=== PATIENT | female | born 1935 | race Hispanic/Latino ===

== ENCOUNTER 2018-10-15 02:36 | Inpatient (IN) | payer MEDICARE ==
[2018-10-15] MEDS ORDERED: ATROVENT IH ONE (02:49)
[2018-10-15] MEDS ORDERED: PROVENTIL IH ONE (02:49)
[2018-10-15] MEDS ORDERED: NACL 0.9% 500 ML 500 ML IV ONE (02:49)
[2018-10-15] MEDS ORDERED: ZITHROMAX 500 MG in NACL 0.9% 250ML 250 ML IV ONE (02:50)
--- NOTE | 2018-10-15 02:51 | Emergency Department Report ---
ED Shortness of Breath HPI - General Chief Complaint: Dyspnea/Respdistress Stated Complaint: CRYSTAL Time Seen by Provider: 10/15/18 02:42 Source: patient, EMS (verbal report received from EMS.ems notes not available at time of chart dictation), RN notes reviewed, old records reviewed Mode of arrival: Stretcher Limitations: Physical Limitation - History of Present Illness Initial Comments: Primary care Dr.: Patient cannot remember Pulmonology: Dr. Gonzalez This is an 82-year-old female. She has a past medical history of COPD, and chronic home oxygen dependence. She is brought to the hospital by emergency medical services for presumed COPD exacerbation. EMS verbally reports that they were contacted for difficulty breathing. EMS verbally reports that the patient was hypoxic to the low to mid 80s in the field. Patient was started on albuterol, magnesium sulfate, steroids in the field, the patient cannot tolerate positive pressure assistance i nitially. Eventually, upon arrival to the emergency room, patient was commenced on BiPAP therapy. This, in conjunction with the aforementioned interventions, dramatically improved her symptoms. The patient indicates no physical pain at this time. She indicates dry cough. She indicates no abdominal pain or urinary symptoms. While in the emergency room, the patient was able to be weaned off of her CPAP. She is currently on 2 L of oxygen. She indicates that she feels better. The patient will be admitted to the medical service for presumed COPD exacerbation. This is discussed with the patient who verbalizes understanding. Case presented to the Hospital physician, Dr. Turner, who has accepted the patient to the medical service. MD Complaint: shortness of breath, cough -: Sudden Severity: severe Consistency: other (symptoms now improving) Improves With: oxygen, bronchodilators, upright position, medication Worsens With: lying flat Known History Of: COPD - Related Data Previous Rx's Medication Instructions Recorded Last Taken Type Combivent Inhaler 1 inhalation IH BID 30 Days 04/09/18 Unknown Rx Albuterol Sulfate [Ventolin HFA] 2 puff IH Q4H PRN #1 pump 04/10/18 Unknown Rx Prednisone [predniSONE 10 mg 10 mg PO .TAPER #39 tab.ds.pk 04/10/18 Unknown Rx (6-Day Pack, 21 Tabs)] amLODIPine [Norvasc] 5 mg PO QDAY #30 tablet 04/10/18 Unknown Rx Allergies Allergy/AdvReac Type Severity Reaction Status Date / Time No Known Allergies Allergy Unverified 09/28/16 02:36 ED Review of Systems ROS: Stated complaint: CRYSTAL Other details as noted in HPI Constitutional: malaise. denies: fever Eyes: denies: eye discharge ENT: congestion Respiratory: shortness of breath, SOB with exertion, wheezing Cardiovascular: denies: chest pain Gastrointestinal: denies: abdominal pain Genitourinary: denies: dysuria Musculoskeletal: denies: back pain Skin: denies: lesions Neurological: weakness Psychiatric: anxiety ED Past Medical Hx - Past Medical History Previous Medical History?: Yes Hx Asthma: Yes Hx COPD: Yes Additional medical history: Emphusema - Surgical History Past Surgical History?: Yes Hx Appendectomy: Yes - Social History Smoking Status: Current Every Day Smoker Substance Use Type: Alcohol - Medications Home Medications: Home Medications Medication Instructions Recorded Confirmed Last Taken Type Combivent Inhaler 1 inhalation IH BID 30 Days 04/09/18 10/15/18 Unknown Rx Albuterol Sulfate [Ventolin HFA] 2 puff IH Q4H PRN #1 pump 04/10/18 10/15/18 Unknown Rx Prednisone [predniSONE 10 mg 10 mg PO .TAPER #39 tab.ds.pk 04/10/18 10/15/18 Unknown Rx (6-Day Pack, 21 Tabs)] amLODIPine [Norvasc] 5 mg PO QDAY #30 tablet 04/10/18 10/15/18 Unknown Rx ED Physical Exam - General Limitations: Physical Limitation General appearance: alert, anxious, in distress - Head Head exam: Present: atraumatic, normocephalic - Eye Eye exam: Present: normal appearance, EOMI - ENT ENT exam: Present: mucous membranes dry, normal external ear exam - Neck Neck exam: Present: normal inspection, full ROM. Absent: tenderness, meni ngismus - Respiratory Respiratory exam: Present: respiratory distress, wheezes, stridor - Cardiovascular Cardiovascular Exam: Present: normal rhythm, tachycardia, normal heart sounds. Absent: systolic murmur, diastolic murmur, rubs, gallop - GI/Abdominal GI/Abdominal exam: Present: soft. Absent: distended, tenderness, guarding, rebound, rigid, pulsatile mass - Extremities Exam Extremities exam: Present: normal inspection, full ROM, other (2+ pulses noted in the bilateral upper, lower extremities. Compartments soft. No long bony tenderness. The pelvis is stable.). Absent: calf tenderness - Back Exam Back exam: Present: normal inspection, full ROM. Absent: tenderness, CVA tenderness (R), paraspinal tenderness, vertebral tenderness - Neurological Exam Neurological exam: Present: alert, other (Extraocular movements intact. Tongue midline. No facial droop. Facial sensation intact to light touch in the V1, V2, V3 distribution bilaterally. 5 and 5 strength in 4 extremities.. Sensation is intact to light touch in 4 extremities.). Absent: motor sensory deficit - Psychiatric Psychiatric exam: Present: anxious - Skin Skin exam: Present: warm, dry, intact, normal color. Absent: rash ED Course Vital Signs 10/15/18 10/15/18 10/15/18 02:38 02:40 02:45 Temperature 98.2 F Pulse Rate 112 H 116 H Pulse Rate [ Posterior Bilateral Throughout] Respiratory 22 26 H Rate Respiratory Rate [Posterior Bilateral Throughout] Blood Pressure 135/73 Blood Pressure 167/92 [Right] O2 Sat by Pulse 99 97 93 Oximetry 10/15/18 10/15/18 10/15/18 02:46 02:50 03:00 Temperature Pulse Rate 109 H 105 H Pulse Rate [ 116 H Posterior Bilateral Throughout] Respiratory 13 16 Rate Respiratory 26 H Rate [Posterior Bilateral Throughout] Blood Pressure 167/92 135/73 Blood Pressure [Right] O2 Sat by Pulse 95 92 Oximetry 10/15/18 10/15/18 10/15/18 03:15 03:23 03:31 Temperature Pulse Rate 105 H 117 H Pulse Rate [ 105 H Posterior Bilateral Throughout] Respiratory 23 16 Rate Respiratory 20 Rate [Posterior Bilateral Throughout] Blood Pressure 167/92 141/77 Blood Pressure [Right] O2 Sat by Pulse 93 95 Oximetry 10/15/18 10/15/18 03:46 03:54 Temperature Pulse Rate Pulse Rate [ Posterior Bilateral Throughout] Respiratory 22 Rate Respiratory Rate [Posterior Bilateral Throughout] Blood Pressure Blood Pressure [Right] O2 Sat by Pulse 98 95 Oximetry ED Medical Decision Making - Lab Data Result diagrams: 10/15/18 03:09 10/15/18 03:09 Vital Signs 10/15/18 10/15/18 10/15/18 02:38 02:40 02:45 Temperature 98.2 F Pulse Rate 112 H 116 H Pulse Rate [ Posterior Bilateral Throughout] Respiratory 22 26 H Rate Respiratory Rate [Posterior Bilateral Throughout] Blood Pressure 135/73 Blood Pressure 167/92 [Right] O2 Sat by Pulse 99 97 93 Oximetry 10/15/18 10/15/18 10/15/18 02:46 02:50 03:00 Temperature Pulse Rate 109 H 105 H Pulse Rate [ 116 H Posterior Bilateral Throughout] Respiratory 13 16 Rate Respiratory 26 H Rate [Posterior Bilateral Throughout] Blood Pressure 167/92 135/73 Blood Pressure [Right] O2 Sat by Pulse 95 92 Oximetry 10/15/18 10/15/18 10/15/18 03:15 03:23 03:31 Temperature Pulse Rate 105 H 117 H Pulse Rate [ 105 H Posterior Bilateral Throughout] Respiratory 23 16 Rate Respiratory 20 Rate [Posterior Bilateral Throughout] Blood Pressure 167/92 141/77 Blood Pressure [Right] O2 Sat by Pulse 93 95 Oximetry 10/15/18 10/15/18 03:46 03:54 Temperature Pulse Rate Pulse Rate [ Posterior Bilateral Throughout] Respiratory 22 Rate Respiratory Rate [Posterior Bilateral Throughout] Blood Pressure Blood Pressure [Right] O2 Sat by Pulse 98 95 Oximetry Lab Results 10/15/18 10/15/18 10/15/18 Range/Units 03:09 03:09 03:09 WBC 10.7 (4.5-11.0) K/mm3 RBC 4.50 (3.65-5.03) M/mm3 Hgb 14.7 H (10.1-14.3) gm/dl Hct 42.7 (30.3-42.9) % MCV 95 (79-97) fl MCH 33 H (28-32) pg MCHC 35 H (30-34) % RDW 14.3 (13.2-15.2) % Plt Count 229 (140-440) K/mm3 PT 12.9 (12.2-14.9) Sec. INR 0.92 (0.87-1.13) Sodium 140 (137-145) mmol/L Potassium 3.2 L (3.6-5.0) mmol/L Chloride 99.5 (98-107) mmol/L Carbon Dioxide 29 (22-30) mmol/L Anion Gap 15 mmol/L BUN 18 H (7-17) mg/dL Creatinine 1.0 (0.7-1.2) mg/dL Estimated GFR 53 ml/min BUN/Creatinine Ratio 18 % Glucose 138 H (65-100) mg/dL Lactic Acid (0.7-2.0) mmol/L Calcium 8.7 (8.4-10.2) mg/dL Magnesium 3.00 H (1.7-2.3) mg/dL Total Creatine Kinase 85 (30-135) units/L Troponin T < 0.010 (0.00-0.029) ng/mL 10/15/18 Range/Units 03:09 WBC (4.5-11.0) K/mm3 RBC (3.65-5.03) M/mm3 Hgb (10.1-14.3) gm/dl Hct (30.3-42.9) % MCV (79-97) fl MCH (28-32) pg MCHC (30-34) % RDW (13.2-15.2) % Plt Count (140-440) K/mm3 PT (12.2-14.9) Sec. INR (0.87-1.13) Sodium (137-145) mmol/L Potassium (3.6-5.0) mmol/L Chloride (98-107) mmol/L Carbon Dioxide (22-30) mmol/L Anion Gap mmol/L BUN (7-17) mg/dL Creatinine (0.7-1.2) mg/dL Estimated GFR ml/min BUN/Creatinine Ratio % Glucose (65-100) mg/dL Lactic Acid 0.70 (0.7-2.0) mmol/L Calcium (8.4-10.2) mg/dL Magnesium (1.7-2.3) mg/dL Total Creatine Kinase (30-135) units/L Troponin T (0.00-0.029) ng/mL - EKG Data -: EKG Interpreted by [facility] EKG shows normal: sinus rhythm Rate: tachycardia - EKG Data 10/15/18 04:21 Sinus tachycardia, 106 bpm, normal axis, QTC prolonged, left ventricular hypertrophy, motion artifact, not having chest pain, this is an abnormal EKG. This is not consistent with ST elevation myocardial infarction. Appears grossly unchanged from prior EKG from March 2018, with the exception that the ventricular hypertrophy appears to be manifest in leads 1, aVL. - Radiology Data Radiology results: report reviewed, image reviewed X-ray of the chest shows chronic emphysematous changes. There is no acute disease. - Medical Decision Making Differential diagnosis, including but not limited to: Pneumonia, bronchitis, COPD exacerbation, pneumothorax Assessment and plan: Elderly, frail-appearing, 82-year-old female, with resolved hypoxia, with presumed COPD exacerbation, no pulmonary M Nicolette DVT risk factors, low risk by well's criteria. Patient appears much improved, and is now coming on 2 L. Given her advanced age, and articulated history, I believe it is in this patient's best interest to be observed for at least 23 hours for presumed COPD exacerbation. She may benefit from a case management evaluation to assist in safe discharge, once she has been medically optimized. I will defer to the inpatient team to further evaluate and manage this. Hypermagnesemia likely secondary to EMS medications. Hypokalemia likely secondary to albuterol administration. Critical Care Time: Yes Critical care time in (mins) excluding proc time.: 35 Critical care attestation.: If time is entered above; I have spent that time in minutes in the direct care of this critically ill patient, excluding procedure time. ED Disposition Clinical Impression: COPD exacerbation Disposition: 09 OP ADMIT IP TO THIS HOSP Is pt being admited?: Yes Condition: Fair Instructions: Chronic Obstructive Pulmonary Disease (ED) Referrals: CLIFF DAVIS MD [Referring] - 3-5 Days
--- NOTE | 2018-10-15 03:09 | XRay Report ---
PROCEDURE: XR CHEST 1V AP TECHNIQUE: A portable upright view the chest was obtained. HISTORY: copd exacerbation COMPARISONS: 04/06/2018 FINDINGS: The lungs are hyperinflated. There are no infiltrates or effusions. The heart size is normal. The sylvia gs are not congested. The bones and soft tissues reveal generalized osteoporosis. IMPRESSION: COPD. No acute process in the chest.. This document is electronically signed by Cuauhtemoc Ware MD., October 15 2018 03:07:25 AM ET
[2018-10-15 03:54] LABS: INR 0.92 (0.87-1.13)
[2018-10-15 03:55] LABS: Hematocrit 42.7 % (30.3-42.9); Hemoglobin 14.7 gm/dl (10.1-14.3); Mean Corpuscular Volume 95 fl (79-97)
[2018-10-15 03:56] LABS: Mean Corpuscular HGB Conc 35 % (30-34); Platelet Count 229 K/mm3 (140-440); Red Cell Distribution Width 14.3 % (13.2-15.2)
[2018-10-15 03:58] LABS: BUN/Creatinine Ratio 18; Blood Urea Nitrogen 18 mg/dL (7-17); Calcium 8.7 mg/dL (8.4-10.2); Hemolysis Index 3
[2018-10-15] MEDS ORDERED: K-DUR PO ONE (04:17)
[2018-10-15] MEDS ORDERED: ZOFRAN IV PRN (04:41)
[2018-10-15] MEDS: KCL 10MEQ/100ML 10 MEQ/100 ML BAG IV SCH ×3 (04:41→08:02)
[2018-10-15] MEDS ORDERED: TYLENOL PO PRN (04:41)
[2018-10-15] MEDS ORDERED: ATROVENT IH PRN (04:43)
--- NOTE | 2018-10-15 04:44 | History and Physical Report ---
History of Present Illness Date of examination: 10/15/18 History of present illness: 83-year-old woman with a history of COPD on home oxygen comes to the emergency room with complaints of shortness of breath that were not relieved with her nebulizer treatments. She denies any cough, fever, chills Review of systems Constitutional: no weight loss, chills, fever Ears, eyes, nose, mouth and throat: no nasal congestion, no nasal discharge, no sinus pressure, no vision change, no red eye. Neck: No neck pain or rigidity. Cardiovascular: no chest pain, palpitations Respiratory: no cough Gastrointestinal: no abdominal pain hematochezia Genitourinary : no frequency , no hematuria Musculoskeletal: no joint swelling or muscle ache Integumentary: no rash, no pruritis Neurological: no parathesias, no numbness, no focal weakness Endocrine: no cold or heat intolerance, no polyuria or polydipsia Hematologic/Lymphatic: no easy bruising, no easy bleeding, no gland swelling Allergic/Immunologic: no urticaria, no angioedema. PAST MEDICAL HISTORY: COPD PAST SURGICAL HISTORY: Appendectomy SOCIAL HISTORY: One beer a day, no drugs, tobacco FAMILY HISTORY: Hypertension Medications and Allergies Allergies Allergy/AdvReac Type Severity Reaction Status Date / Time No Known Allergies Allergy Unverified 09/28/16 02:36 Home Medications Medication Instructions Recorded Confirmed Last Taken Type Combivent Inhaler 1 inhalation IH BID 30 Days 04/09/18 10/15/18 Unknown Rx Albuterol Sulfate [Ventolin HFA] 2 puff IH Q4H PRN #1 pump 04/10/18 10/15/18 Unknown Rx amLODIPine [Norvasc] 5 mg PO QDAY #30 tablet 04/10/18 10/15/18 Unknown Rx ALBUTEROL NEB's [Proventil 0.083% 2.5 mg IH TID PRN #90 neb 10/18/18 Unknown Rx NEBS] ALPRAZolam [Xanax TAB] 0.25 mg PO Q8H PRN #14 tablet 10/18/18 Unknown Rx Fluticasone/Salmeterol [Advair 1 each IH BID #1 blst.w.dev 10/18/18 Unknown Rx 500-50 Diskus] Tiotropium [place] [Spiriva 1 each IH DAILY #1 mist.inhal 10/18/18 Unknown Rx Respimat] predniSONE [Deltasone] 10 mg PO .TAPER #48 tab 10/18/18 Unknown Rx Active Meds: Active Medications Acetaminophen (Tylenol) 650 mg PO Q4H PRN PRN Reason: Pain MILD(1-3)/Fever >100.5/[facility] Enoxaparin Sodium (Lovenox) 30 mg SUB-Q QDAY [facility] Potassium Chloride (Kcl 10meq/100ml) 10 meq in 100 mls @ 100 mls/hr IV Q1H [facility] Stop: 10/15/18 08:59 Last Admin: 10/15/18 04:41 Dose: 100 mls/hr Documented by: Ipratropium [place] (Atrovent) 0.5 mg IH Q4H PRN PRN Reason: Wheezing Methylprednisolone Sodium Succinate (Solu-Medrol) 125 mg IV Q6HR [facility] Ondansetron HCl (Zofran) 4 mg IV Q8H PRN PRN Reason: Nausea And Vomiting Sodium Chloride (Sodium Chloride Flush Syringe 10 Ml) 10 ml IV BID [facility] Sodium Chloride (Sodium Chloride Flush Syringe 10 Ml) 10 ml IV PRN PRN PRN Reason: LINE FLUSH Exam - Physical Exam Narrative exam: Gen. appearance: Patient lying in bed, no apparent distress HEENT: Normocephalic, atraumatic, pupils equally round and reactive to light, extraocular movement intact, and no sclericterus,. No JVD or thyromegaly or nodule,neck supple, no carotid bruit ,mucous membranes moist, no exudate or erythema Heart: S1, S2, regular rate and rhythm Lungs: wheezing bilaterally, breathing comfortable Abdomen: Positive bowel sounds, non-tender, nondistended, no organomegaly Extremity:no edema cyanosis, clubbing Skin: no rash, dry, warm Neuro: Oriented 3, cranial nerves II-12 intact, speech is fluent, motor and sensory intact - Constitutional Vitals: Temp Pulse Resp BP Pulse Ox 98.2 F 122 H 29 H 142/82 94 10/15/18 02:40 10/15/18 04:01 10/15/18 04:01 10/15/18 04:01 10/15/18 04:01 Results - Labs CBC & Chem 7: 10/16/18 06:43 10/16/18 06:43 Labs: Abnormal lab results 10/15/18 10/15/18 Range/Units 03:09 03:09 Hgb 14.7 H (10.1-14.3) gm/dl MCH 33 H (28-32) pg MCHC 35 H (30-34) % Potassium 3.2 L (3.6-5.0) mmol/L BUN 18 H (7-17) mg/dL Glucose 138 H (65-100) mg/dL Magnesium 3.00 H (1.7-2.3) mg/dL - Imaging and Cardiology Chest x-ray: report reviewed Assessment and Plan Assessment COPD exacerbation Plan Admit to medicine Start IV steroids, nebulizer treatments DVT prophylaxis
[2018-10-15] MEDS ORDERED: SOLU-Medrol IV SCH (06:00)
[2018-10-15 10:45] LABS: Calcium 8.6 mg/dL (8.4-10.2)
[2018-10-15] MEDS: LOVENOX SUB-Q SCH (10:58)
[2018-10-15] MEDS: SODIUM CHLORIDE FLUSH SYRINGE 10 ML IV SCH ×2 (10:58→22:04)
--- NOTE | 2018-10-15 12:11 | Consultation ---
History of Present Illness Consult date: 10/15/18 Reason for consult: dyspnea, COPD History of present illness: Called to evaluate case of an 82-year-old female, admitted to the hospital due to progressive shortness of breath, suspected COPD exacerbation. The patient reportedly were prior history of COPD, follows with Dr. Gonzalez. Reportedly started on hospice last month-primary care physician? EMT were called and she was noted to be hypoxic despite her oxygen use and was then rushed to the hospital. Generally showing progressive shortness of breath episodes 24 hours prior to admission. She denies chest pain, fever, chills, increasing expectoration or hemoptysis. Reportedly using her inhalers. At smoking, does have another person smoking in the household but reportedly not inside the house. Past History Past Medical History: CAD, COPD Medications and Allergies Allergies Allergy/AdvReac Type Severity Reaction Status Date / Time No Known Allergies Allergy Unverified 09/28/16 02:36 Home Medications Medication Instructions Recorded Confirmed Last Taken Type Combivent Inhaler 1 inhalation IH BID 30 Days 04/09/18 10/15/18 Unknown Rx Albuterol Sulfate [Ventolin HFA] 2 puff IH Q4H PRN #1 pump 04/10/18 10/15/18 Unknown Rx Prednisone [predniSONE 10 mg 10 mg PO .TAPER #39 tab.ds.pk 04/10/18 10/15/18 Unknown Rx (6-Day Pack, 21 Tabs)] amLODIPine [Norvasc] 5 mg PO QDAY #30 tablet 04/10/18 10/15/18 Unknown Rx Active Meds: Active Medications Acetaminophen (Tylenol) 650 mg PO Q4H PRN PRN Reason: Pain MILD(1-3)/Fever >100.5/OCHOA Albuterol/Ipratropium (Duoneb *Not For Prn Use*) 1 ampul IH Q6HRT [facility] Enoxaparin Sodium (Lovenox) 30 mg SUB-Q QDAY [facility] Last Admin: 10/15/18 10:58 Dose: 30 mg Documented by: Methylprednisolone Sodium Succinate (Solu-Medrol) 60 mg IV Q8HR [facility] Ondansetron HCl (Zofran) 4 mg IV Q8H PRN PRN Reason: Nausea And Vomiting Sodium Chloride (Sodium Chloride Flush Syringe 10 Ml) 10 ml IV BID [facility] Last Admin: 10/15/18 10:58 Dose: 10 ml Documented by: Sodium Chloride (Sodium Chloride Flush Syringe 10 Ml) 10 ml IV PRN PRN PRN Reason: LINE FLUSH Review of Systems Constitutional: weight loss, fatigue, weakness Cardiovascular: palpitations, shortness of breath, dyspnea on exertion, no chest pain, no orthopnea Respiratory: shortness of breath, dyspnea on exertion, wheezing, no cough, no cough with sputum, no excessive sputum, no hemoptysis Gastrointestinal: no nausea, no vomiting, no diarrhea, no constipation Neurological: no head injury, no transient paralysis, no paralysis, no weakness, no parathesias Physical Examination Vital signs: Vital Signs Pulse Ox 99 10/15/18 02:38 General appearance: no acute distress, alert Eyes: non-icteric ENT: oropharynx moist Neck: supple, no JVD Ascultation: Bilateral: clear, diminished breath sounds, wheezes (faint), other (increased AP diameter. Pursed lip breathing) Cardiovascular: regular rate and rhythm Gastrointestinal: normoactive bowel sounds Integumentary: normal Extremities: no cyanosis, no edema Musculoskeletal: no deformities normal mental status, non-focal exam, pupils equal and round, CN II-XII normal mood appropriate, affect normal Results - Laboratory Findings CBC and BMP: 10/16/18 06:43 10/16/18 06:43 PT/INR, D-dimer PT 12.9 Sec. (12.2-14.9) 10/15/18 03:09 INR 0.92 (0.87-1.13) 10/15/18 03:09 Abnormal lab findings: Abnormal Labs 10/15/18 10/15/18 10/15/18 03:09 03:09 09:52 Hgb 14.7 H MCH 33 H MCHC 35 H Potassium 3.2 L BUN 18 H Glucose 138 H 237 H Magnesium 3.00 H - Diagnostic Findings Chest x-ray: report reviewed, other (films not available for review) Assessment and Plan COPD exacerbation. No acute changes reported on chest x-ray. Cardiac markers normal Recommendations Albuterol 2.5 milligram nebulizations every 4-6 hours with or without ipratropium Solu-Medrol 40-60 mg IV every 6-8 hours Oxygen support via nasal cannula or mask to maintain oximetry over 92% Continuing trial of BiPAP at nighttime DVT prophylaxis Discussed with patient in detail. All questions answered. Thanks
--- NOTE | 2018-10-15 12:56 | Event Note ---
Date: 10/15/18 Patient admitted for COPD exacerbation. I have seen and examined her. She is followed by Dr. Gonzalez, Pulmonology. Start Duoneb. Decrease dose of solu-medrol to 60mg Q 8h.
[2018-10-15] MEDS: DUONEB *Not for PRN Use IH SCH ×2 (15:02→20:20)
[2018-10-15] MEDS: SOLU-Medrol IV SCH ×2 (15:44→22:03)
[2018-10-15] MEDS: SODIUM CHLORIDE FLUSH SYRINGE 10 ML IV PRN (22:04)
[2018-10-16] MEDS: DUONEB *Not for PRN Use IH SCH ×4 (03:18→20:25)
[2018-10-16] MEDS: SOLU-Medrol IV SCH ×3 (05:41→21:40)
[2018-10-16 07:25] LABS: Basophils % (Auto) 0.2 % (0.0-1.8); Hematocrit 39.5 % (30.3-42.9); Hemoglobin 13.4 gm/dl (10.1-14.3); Lymphocytes # (Auto) 0.6 K/mm3 (1.2-5.4); Lymphocytes % (Auto) 7.2 % (13.4-35.0); Mean Corpuscular HGB Conc 34 % (30-34); Mean Corpuscular Volume 95 fl (79-97); Monocytes # (Auto) 0.3 K/mm3 (0.0-0.8); Monocytes % (Auto) 3.9 % (0.0-7.3); Platelet Count 197 K/mm3 (140-440); Red Blood Count 4.14 M/mm3 (3.65-5.03); Red Cell Distribution Width 14.4 % (13.2-15.2)
--- NOTE | 2018-10-16 09:20 | Progress Note ---
Assessment and Plan COPD exacerbation. No acute changes reported on chest x-ray. Cardiac markers normal Nausea Recommendations Continue Albuterol 2.5 milligram nebulizations every 4-6 hours with ipratropium Solu-Medrol IV and may consider transition to prednisone on the next 24 hours PPI therapy for possible gastritis Oxygen support now 3 L/m. She uses 4 L/m at home Continuing trial of BiPAP at nighttime as needed DVT prophylaxis Discussed with patient in detail. All questions answered. Subjective Date of service: 10/16/18 Principal diagnosis: COPD exacerbation episode Interval history: Breathing feels much better today. No events overnight. Does complains of upset stomach, nausea. Objective Vital Signs - 12hr 10/15/18 10/16/18 10/16/18 22:00 01:43 02:09 Temperature 98.4 F Pulse Rate 100 H Pulse Rate [ Anterior Bilateral] Respiratory 20 18 Rate Respiratory Rate [Anterior Bilateral] Blood Pressure 160/96 O2 Sat by Pulse 92 Oximetry 10/16/18 10/16/18 10/16/18 02:11 03:10 03:20 Temperature Pulse Rate 104 H Pulse Rate [ 110 H 113 H Anterior Bilateral] Respiratory Rate Respiratory 16 14 Rate [Anterior Bilateral] Blood Pressure O2 Sat by Pulse 96 Oximetry 10/16/18 10/16/18 07:37 07:45 Temperature 97.8 F Pulse Rate 97 H Pulse Rate [ Anterior Bilateral] Respiratory 20 22 Rate Respiratory Rate [Anterior Bilateral] Blood Pressure 127/78 O2 Sat by Pulse 92 93 Oximetry Constitutional: no acute distress, alert Eyes: non-icteric ENT: oropharynx moist Neck: supple, no JVD Ascultation: Bilateral: clear, diminished breath sounds, other (increased AP diameter. Pursed lip breathing) Cardiovascular: regular rate and rhythm Gastrointestinal: normoactive bowel sounds Integumentary: normal Extremities: no cyanosis, no edema Neurologic: normal mental status, non-focal exam, pupils equal and round, CN II- XII normal Psychiatric: mood appropriate, affect normal CBC and BMP: 10/16/18 06:43 10/16/18 06:43 ABG, PT/INR, D-dimer: PT/INR, D-dimer PT 12.9 Sec. (12.2-14.9) 10/15/18 03:09 INR 0.92 (0.87-1.13) 10/15/18 03:09 Abnormal lab findings: Abnormal Labs 10/15/18 10/15/18 10/15/18 03:09 03:09 09:52 Hgb 14.7 H MCH 33 H MCHC 35 H Lymph % (Auto) Lymph # Seg Neutrophils % Potassium 3.2 L BUN 18 H Glucose 138 H 237 H Magnesium 3.00 H 10/16/18 10/16/18 06:43 06:43 Hgb MCH MCHC Lymph % (Auto) 7.2 L Lymph # 0.6 L Seg Neutrophils % 88.7 H Potassium BUN Glucose 147 H Magnesium
[2018-10-16] MEDS: LOVENOX SUB-Q SCH (09:35)
[2018-10-16] MEDS: SODIUM CHLORIDE FLUSH SYRINGE 10 ML IV SCH ×2 (09:40→21:40)
--- NOTE | 2018-10-16 12:01 | Progress Note ---
Assessment and Plan Assessment and plan: 82-year-old woman a history of COPD on home oxygen and home hospice. The patient presented with shortness of breath not relieved by oxygen or nebulizer, and she was desaturating Diagnosis Acute on chronic hypoxic respiratory failure COPD exacerbation Plan Continue steroids nebs and oxygen, pulmonology input appreciated Continue oxygen, patient is currently doing trial of BiPAP at bedtime as needed This oh, back to home hospice when improved DVT prophylaxis History Interval history: Review of systems Constitutional: No fevers, no malaise, no joint pains CVS: No chest pain, no orthopnea, no dyspnea on exertion, no pedal edema GI: No abdominal pain, no diarrhea, no vomiting, no constipation Respiratory: c/o wheezing and sob, no coughing Hospitalist Physical - Physical exam Narrative exam: General.: Mild distress HEENT: Moist mucous membranes, extraocular muscles intact, no lymphadenopathy Neck: supple Cardiac: S1-S2 heard Lungs: Increased air entry, wheezing Abdomen: soft , nontender, nondistended, bowel sounds positive Extremities: no edema clubbing or cyanosis Skin: no rash or lesions Neurologic: no gross focal deficits Psych: calm, and cooperative - Constitutional Vitals: Temp Pulse Resp BP Pulse Ox 97.8 F 110 H 22 127/78 95 10/16/18 07:45 10/16/18 09:51 10/16/18 09:51 10/16/18 07:45 10/16/18 09:37 Results - Labs CBC & Chem 7: 10/16/18 06:43 10/16/18 06:43 Labs: Laboratory Last Values WBC 8.0 K/mm3 (4.5-11.0) 10/16/18 06:43 RBC 4.14 M/mm3 (3.65-5.03) 10/16/18 06:43 Hgb 13.4 gm/dl (10.1-14.3) 10/16/18 06:43 Hct 39.5 % (30.3-42.9) 10/16/18 06:43 MCV 95 fl (79-97) 10/16/18 06:43 MCH 32 pg (28-32) 10/16/18 06:43 MCHC 34 % (30-34) 10/16/18 06:43 RDW 14.4 % (13.2-15.2) 10/16/18 06:43 Plt Count 197 K/mm3 (140-440) 10/16/18 06:43 Lymph % (Auto) 7.2 % (13.4-35.0) L 10/16/18 06:43 [place] % (Auto) 3.9 % (0.0-7.3) 10/16/18 06:43 Eos % (Auto) 0.0 % (0.0-4.3) 10/16/18 06:43 Baso % (Auto) 0.2 % (0.0-1.8) 10/16/18 06:43 Lymph # 0.6 K/mm3 (1.2-5.4) L 10/16/18 06:43 [place] # 0.3 K/mm3 (0.0-0.8) 10/16/18 06:43 Eos # 0.0 K/mm3 (0.0-0.4) 10/16/18 06:43 Baso # 0.0 K/mm3 (0.0-0.1) 10/16/18 06:43 Seg Neutrophils % 88.7 % (40.0-70.0) H 10/16/18 06:43 Seg Neutrophils # 7.1 K/mm3 (1.8-7.7) 10/16/18 06:43 PT 12.9 Sec. (12.2-14.9) 10/15/18 03:09 INR 0.92 (0.87-1.13) 10/15/18 03:09 Sodium 141 mmol/L (137-145) 10/16/18 06:43 Potassium 4.3 mmol/L (3.6-5.0) 10/16/18 06:43 Chloride 102.8 mmol/L (98-107) 10/16/18 06:43 Carbon Dioxide 27 mmol/L (22-30) 10/16/18 06:43 Anion Gap 16 mmol/L 10/16/18 06:43 BUN 17 mg/dL (7-17) 10/16/18 06:43 Creatinine 0.9 mg/dL (0.7-1.2) 10/16/18 06:43 Estimated GFR 60 ml/min 10/16/18 06:43 BUN/Creatinine Ratio 19 % 10/16/18 06:43 Glucose 147 mg/dL (65-100) H 10/16/18 06:43 Lactic Acid 0.70 mmol/L (0.7-2.0) 10/15/18 03:09 Calcium 9.0 mg/dL (8.4-10.2) 10/16/18 06:43 Magnesium 3.00 mg/dL (1.7-2.3) H 10/15/18 03:09 Total Creatine Kinase 85 units/L (30-135) 10/15/18 03:09 Troponin T < 0.010 ng/mL (0.00-0.029) 10/15/18 03:09 Active Medications - Current Medications Current Medications: Generic Name Dose Route Start Last Admin Trade Name Freq PRN Reason Stop Dose Admin Acetaminophen 650 mg 10/15/18 04:41 Tylenol PO Q4H PRN Pain MILD(1-3)/Fever >100.5/OCHOA Albuterol/Ipratropium 1 ampul 10/15/18 14:00 10/16/18 09:36 Duoneb *Not For Prn Use* IH 1 ampul Q6HRT BISMARK Administration Enoxaparin Sodium 40 mg 10/16/18 11:59 Lovenox SUB-Q QDAY BISMARK Methylprednisolone Sodium Succinate 60 mg 10/15/18 14:00 10/16/18 05:41 Solu-Medrol IV 60 mg Q8HR BISMARK Administration Ondansetron HCl 4 mg 10/15/18 04:41 Zofran IV Q8H PRN Nausea And Vomiting Pantoprazole Sodium 40 mg 10/16/18 11:00 Protonix PO QDAY BISMARK Sodium Chloride 10 ml 10/15/18 10:00 10/16/18 09:40 Sodium Chloride Flush Syringe 10 Ml IV 10 ml BID BISMARK Administration Sodium Chloride 10 ml 10/15/18 04:41 10/15/18 22:04 Sodium Chloride Flush Syringe 10 Ml IV 10 ml PRN PRN Administration LINE FLUSH
[2018-10-16] MEDS: PROTONIX PO SCH (12:50)
[2018-10-16] MEDS ORDERED: XANAX PO PRN (21:08)
[2018-10-16] MEDS: MUCINEX ER PO SCH (21:40)
[2018-10-17] MEDS: SOLU-Medrol IV SCH ×3 (06:41→21:46)
[2018-10-17] MEDS: MUCINEX ER PO SCH ×2 (09:08→21:45)
[2018-10-17] MEDS: PROTONIX PO SCH (09:08)
[2018-10-17] MEDS: SODIUM CHLORIDE FLUSH SYRINGE 10 ML IV SCH ×2 (09:09→21:46)
[2018-10-17] MEDS: LOVENOX SUB-Q SCH (09:18)
[2018-10-17] MEDS ORDERED: LOVENOX SUB-Q SCH (10:00)
[2018-10-17] MEDS: DUONEB *Not for PRN Use IH SCH ×4 (10:50→20:09)
[2018-10-17] MEDS: SODIUM CHLORIDE FLUSH SYRINGE 10 ML IV PRN (13:21)
--- NOTE | 2018-10-17 15:07 | Progress Note ---
Assessment and Plan Assessment and plan: 82-year-old woman a history of COPD on home oxygen and home hospice. The patient presented with shortness of breath not relieved by oxygen or nebulizer, and she was desaturating Diagnosis Acute on chronic hypoxic respiratory failure COPD exacerbation Plan Continue steroids nebs and oxygen, pulmonology input appreciated Continue oxygen, patient is currently doing trial of BiPAP at bedtime as needed Dispo, back to home hospice when improved DVT prophylaxis History Interval history: Review of systems Constitutional: No fevers, no malaise, no joint pains CVS: No chest pain, no orthopnea, no dyspnea on exertion, no pedal edema GI: No abdominal pain, no diarrhea, no vomiting, no constipation Respiratory: c/o wheezing and sob, no coughing Hospitalist Physical - Physical exam Narrative exam: General.: Mild distress HEENT: Moist mucous membranes, extraocular muscles intact, no lymphadenopathy Neck: supple Cardiac: S1-S2 heard Lungs: Increased air entry, wheezing Abdomen: soft , nontender, nondistended, bowel sounds positive Extremities: no edema clubbing or cyanosis Skin: no rash or lesions Neurologic: no gross focal deficits Psych: calm, and cooperative - Constitutional Vitals: Temp Pulse Resp BP Pulse Ox 97.5 F L 88 16 146/76 95 10/17/18 07:12 10/17/18 13:40 10/17/18 13:40 10/17/18 07:12 10/17/18 10:00 Results - Labs CBC & Chem 7: 10/16/18 06:43 10/16/18 06:43 Labs: Laboratory Last Values WBC 8.0 K/mm3 (4.5-11.0) 10/16/18 06:43 RBC 4.14 M/mm3 (3.65-5.03) 10/16/18 06:43 Hgb 13.4 gm/dl (10.1-14.3) 10/16/18 06:43 Hct 39.5 % (30.3-42.9) 10/16/18 06:43 MCV 95 fl (79-97) 10/16/18 06:43 MCH 32 pg (28-32) 10/16/18 06:43 MCHC 34 % (30-34) 10/16/18 06:43 RDW 14.4 % (13.2-15.2) 10/16/18 06:43 Plt Count 197 K/mm3 (140-440) 10/16/18 06:43 Lymph % (Auto) 7.2 % (13.4-35.0) L 10/16/18 06:43 [place] % (Auto) 3.9 % (0.0-7.3) 10/16/18 06:43 Eos % (Auto) 0.0 % (0.0-4.3) 10/16/18 06:43 Baso % (Auto) 0.2 % (0.0-1.8) 10/16/18 06:43 Lymph # 0.6 K/mm3 (1.2-5.4) L 10/16/18 06:43 [place] # 0.3 K/mm3 (0.0-0.8) 10/16/18 06:43 Eos # 0.0 K/mm3 (0.0-0.4) 10/16/18 06:43 Baso # 0.0 K/mm3 (0.0-0.1) 10/16/18 06:43 Seg Neutrophils % 88.7 % (40.0-70.0) H 10/16/18 06:43 Seg Neutrophils # 7.1 K/mm3 (1.8-7.7) 10/16/18 06:43 PT 12.9 Sec. (12.2-14.9) 10/15/18 03:09 INR 0.92 (0.87-1.13) 10/15/18 03:09 Sodium 141 mmol/L (137-145) 10/16/18 06:43 Potassium 4.3 mmol/L (3.6-5.0) 10/16/18 06:43 Chloride 102.8 mmol/L (98-107) 10/16/18 06:43 Carbon Dioxide 27 mmol/L (22-30) 10/16/18 06:43 Anion Gap 16 mmol/L 10/16/18 06:43 BUN 17 mg/dL (7-17) 10/16/18 06:43 Creatinine 0.9 mg/dL (0.7-1.2) 10/16/18 06:43 Estimated GFR 60 ml/min 10/16/18 06:43 BUN/Creatinine Ratio 19 % 10/16/18 06:43 Glucose 147 mg/dL (65-100) H 10/16/18 06:43 Lactic Acid 0.70 mmol/L (0.7-2.0) 10/15/18 03:09 Calcium 9.0 mg/dL (8.4-10.2) 10/16/18 06:43 Magnesium 3.00 mg/dL (1.7-2.3) H 10/15/18 03:09 Total Creatine Kinase 85 units/L (30-135) 10/15/18 03:09 Troponin T < 0.010 ng/mL (0.00-0.029) 10/15/18 03:09 Active Medications - Current Medications Current Medications: Generic Name Dose Route Start Last Admin Trade Name Freq PRN Reason Stop Dose Admin Acetaminophen 650 mg 10/15/18 04:41 Tylenol PO Q4H PRN Pain MILD(1-3)/Fever >100.5/OCHOA Albuterol/Ipratropium 1 ampul 10/15/18 14:00 10/17/18 13:39 Duoneb *Not For Prn Use* IH 1 ampul Q6HRT BISMARK Administration Alprazolam 0.25 mg 10/16/18 21:08 10/16/18 21:40 Xanax PO 0.25 mg Q8H PRN Administration Anxiety Enoxaparin Sodium 40 mg 10/17/18 10:00 10/17/18 09:18 Lovenox SUB-Q 40 mg QDAY@1000 BISMARK Administration Guaifenesin 1,200 mg 10/16/18 22:00 10/17/18 09:08 Mucinex Er PO 1,200 mg BID BISMARK Administration Methylprednisolone Sodium Succinate 60 mg 10/15/18 14:00 10/17/18 13:21 Solu-Medrol IV 60 mg Q8HR BISMARK Administration Ondansetron HCl 4 mg 10/15/18 04:41 Zofran IV Q8H PRN Nausea And Vomiting Pantoprazole Sodium 40 mg 10/16/18 11:00 10/17/18 09:08 Protonix PO 40 mg QDAY BISMARK Administration Sodium Chloride 10 ml 10/15/18 10:00 10/17/18 09:09 Sodium Chloride Flush Syringe 10 Ml IV 10 ml BID BISMARK Administration Sodium Chloride 10 ml 10/15/18 04:41 10/17/18 13:21 Sodium Chloride Flush Syringe 10 Ml IV 10 ml PRN PRN Administration LINE FLUSH
[2018-10-18] MEDS: DUONEB *Not for PRN Use IH SCH ×3 (03:17→15:12)
[2018-10-18] MEDS: SOLU-Medrol IV SCH (05:46)
[2018-10-18] MEDS ORDERED: PROAIR IH PRN (09:29)
[2018-10-18] MEDS ORDERED: APRESOLINE IV PRN (09:44)
--- NOTE | 2018-10-18 09:51 | Progress Note ---
Assessment and Plan COPD exacerbation. Improved,controlled Nausea Recommendations Continue Albuterol 2.5 milligram nebulizations every 4-6 hours with ipratropium Prednisone 30 mg qd with 7 days taper PPI therapy for possible gastritis Continue Oxygen support Sees Dr. Gonzalez in 3 wks Can go on Stiolto or Anoro, pending review with DVT prophylaxis Discussed with patient in detail. All questions answered. Subjective Date of service: 10/18/18 Principal diagnosis: COPD exacerbation episode Interval history: Breathing feels much better today. No events overnight. Used her BPAP. Wants to go home Objective Vital Signs - 12hr 10/17/18 10/18/18 10/18/18 22:00 02:35 07:45 Temperature 97.3 F L 97.8 F Pulse Rate 88 94 H 88 Respiratory 16 20 Rate Blood Pressure 155/86 172/78 O2 Sat by Pulse 98 95 Oximetry Constitutional: no acute distress, alert Eyes: non-icteric ENT: oropharynx moist Neck: supple, no JVD Ascultation: Bilateral: clear, diminished breath sounds, other (increased AP diameter. Pursed lip breathing) Cardiovascular: regular rate and rhythm Gastrointestinal: normoactive bowel sounds Integumentary: normal Extremities: no cyanosis, no edema Neurologic: normal mental status, non-focal exam, pupils equal and round, CN II- XII normal Psychiatric: mood appropriate, affect normal CBC and BMP: 10/16/18 06:43 10/16/18 06:43 ABG, PT/INR, D-dimer: PT/INR, D-dimer PT 12.9 Sec. (12.2-14.9) 10/15/18 03:09 INR 0.92 (0.87-1.13) 10/15/18 03:09 Abnormal lab findings: Abnormal Labs 10/15/18 10/15/18 10/15/18 03:09 03:09 09:52 Hgb 14.7 H MCH 33 H MCHC 35 H Lymph % (Auto) Lymph # Seg Neutrophils % Potassium 3.2 L BUN 18 H Glucose 138 H 237 H Magnesium 3.00 H 10/16/18 10/16/18 06:43 06:43 Hgb MCH MCHC Lymph % (Auto) 7.2 L Lymph # 0.6 L Seg Neutrophils % 88.7 H Potassium BUN Glucose 147 H Magnesium
[2018-10-18] MEDS ORDERED: PROVENTIL IH PRN (09:56)
[2018-10-18] MEDS ORDERED: NORVASC PO SCH (10:00)
[2018-10-18] MEDS: PROTONIX PO SCH (10:21)
[2018-10-18] MEDS: LOVENOX SUB-Q SCH (10:21)
[2018-10-18] MEDS: MUCINEX ER PO SCH (10:21)
[2018-10-18] MEDS: SODIUM CHLORIDE FLUSH SYRINGE 10 ML IV SCH (10:22)
--- NOTE | 2018-10-18 11:28 | Discharge Summary ---
Providers - Providers Date of Admission: 10/15/18 07:48 Attending physician: MORIS ISLAS MD 10/15/18 11:30 Consult to Physician [CONS] Routine Comment: SKYLER Consulting Provider: MECHELLE LOREDO Physician Instructions: CONSULT WAS CALLED TO /DELMER Reason For Exam: COPD exacerbation 10/16/18 09:09 Physical Therapy Evaluation and Treat [CONS] Routine Comment: Reason For Exam: weakness Primary care physician: ALPESH PERSON Hospitalization Condition: Fair Hospital course: 82-year-old woman a history of COPD on home oxygen and home hospice. The patient presented with shortness of breath not relieved by oxygen or nebulizer, and she was desaturating Diagnosis Acute on chronic hypoxic respiratory failure COPD exacerbation she was treated with steroids and nebulizers and oxygen. Pulmonology, managed to patients. She received oxygen supplementation on trial of BiPAP at bedtime as needed. The patient improved and was discharged back home to home hospice Disposition: DC-50 TO HOSPICE (HOME) Time spent for discharge: 33 mins Core Measure Documentation - Palliative Care Palliative Care/ Comfort Measures: Hospice Care - Core Measures Any of the following diagnoses?: none Exam - Constitutional Vitals: Temp Pulse Resp BP Pulse Ox 97.8 F 88 20 172/78 95 10/18/18 07:45 10/18/18 07:45 10/18/18 07:45 10/18/18 10:29 10/18/18 07:45 General appearance: Present: no acute distress, well-nourished - EENT Eyes: Present: PERRL ENT: hearing intact, clear oral mucosa - Neck Neck: Present: supple, normal ROM - Respiratory Respiratory effort: normal Respiratory: bilateral: diminished - Cardiovascular Heart Sounds: Present: S1 & S2. Absent: rub, click - Extremities Extremities: pulses symmetrical, No edema Peripheral Pulses: within normal limits - Abdominal General gastrointestinal: Present: soft, non-tender, non-distended, normal bowel sounds Female genitourinary: Present: normal - Integumentary Integumentary: Present: clear, warm, dry - Musculoskeletal Musculoskeletal: gait normal, strength equal bilaterally - Psychiatric Psychiatric: appropriate mood/affect, intact judgment & insight - Neurologic Neurologic: CNII-XII intact, moves all extremities Plan [facility] KHANH [Referring] - 3-5 Days Prescriptions: Fluticasone/Salmeterol [Advair 500-50 Diskus] 1 each IH BID #1 blst.w.dev predniSONE [Deltasone] 10 mg PO .TAPER #48 tab ALBUTEROL NEB's [Proventil 0.083% NEBS] 2.5 mg IH TID PRN #90 neb PRN Reason: Wheezing Tiotropium [place] [Spiriva Respimat] 1 each IH DAILY #1 mist.inhal ALPRAZolam [Xanax TAB] 0.25 mg PO Q8H PRN #14 tablet PRN Reason: Anxiety Other Discharge Orders: Nebulizer (Amb) Location: None Selected
[2018-10-18 13:42] VITALS: BP 140/84
== END 2018-10-18 15:40 | disposition hospice, home (50) | DRG 189 ==
LOC: SUATTDRO 02:36 → ED 02:36 → 2B-ACE 07:48
PROVIDERS: ADMIT Internal Medicine; ATTEND Internal Medicine
DX: J96.21 Acute and chronic respiratory failure with hypoxia (principal); J44.1 Chronic obstructive pulmonary disease with (acute) exacerbation; F17.210 Nicotine dependence, cigarettes, uncomplicated; Z90.49 Acquired absence of other specified parts of digestive tract; Z99.81 Dependence on supplemental oxygen
CPT/HCPCS: 36415; 71045; 80048; 82140; 82550; 83735; 84484; 85025; 85027; 85610; 87040; 93005; 93010; 94640; 94760; 99406; G0378; J0456; J1650; J2930; J3480; J7040; J7050

== ENCOUNTER 2019-05-10 13:42 | Inpatient (IN) | payer MEDICARE ==
--- NOTE | 2019-05-10 14:12 | Event Note ---
ED Screening Note Date of service: 05/10/19 Time: 14:10 ED Screening Note: 83 y o female presents with sob x today on O2 at home This initial assessment/diagnostic orders/clinical plan/treatment(s) is/are subject to change based on patients health status, clinical progression and re-assessment by fellow clinical providers in the ED. Further treatment and workup at subsequent clinical providers discretion. Patient/guardian urged not to elope from the ED as their condition may be serious if not clinically assessed and managed. Initial orders include: llabs xr
[2019-05-10 14:43] LABS: Basophils % (Auto) 0.5 % (0.0-1.8); Eosinophils # (Auto) 0.2 K/mm3 (0.0-0.4); Eosinophils % (Auto) 2.6 % (0.0-4.3); Hematocrit 38.4 % (30.3-42.9); Hemoglobin 13.1 gm/dl (10.1-14.3); Lymphocytes % (Auto) 28.7 % (13.4-35.0); Mean Corpuscular HGB Conc 34 % (30-34); Mean Corpuscular Volume 90 fl (79-97); Monocytes # (Auto) 0.7 K/mm3 (0.0-0.8); Monocytes % (Auto) 10.1 % (0.0-7.3); Platelet Count 181 K/mm3 (140-440); Red Blood Count 4.26 M/mm3 (3.65-5.03); Red Cell Distribution Width 13.4 % (13.2-15.2)
[2019-05-10 15:37] LABS: BUN/Creatinine Ratio 19; Blood Urea Nitrogen 15 mg/dL (7-17); Calcium 9.6 mg/dL (8.4-10.2); Hemolysis Index 19
[2019-05-10 15:47] LABS: Chol/HDL Ratio 2.12 %; HDL Cholesterol 94 mg/dL (40-59); LDL Cholesterol,Direct 111 mg/dL (50-130)
--- NOTE | 2019-05-10 16:53 | XRay Report ---
CHEST 2 VIEWS INDICATION / CLINICAL INFORMATION: Dyspnea. COMPARISON: Chest x-ray 10/15/2018 FINDINGS: SUPPORT DEVICES: None. HEART / MEDIASTINUM: No significant abnormality. LUNGS / PLEURA: Moderate emphysema/COPD and right upper lobe nodule, unchanged. No pneumothorax. ADDITIONAL FINDINGS: No significant additional findings. IMPRESSION: 1. Right upper lobe pulmonary nodule with background of moderate emphysema suspicious for malignancy, similar to prior study. A chest CT could be performed for more accurate size comparison to prior AP chest from 04/06/ Signer Name: Nabil Westbrook MD Signed: 05/10/2019 4:48 PM Workstation Name: [id number]
[2019-05-10] MEDS ORDERED: ASPIRIN 81 MG TAB CHEW PO ONE (19:03)
[2019-05-10] MEDS ORDERED: ENOXAPARIN 40 MG/0.4 ML INJ SUB-Q ONE (19:08)
[2019-05-10] MEDS ORDERED: methylPREDNISolone Sod Succinate 125 MG/2 ML INJ IV ONE (19:24)
[2019-05-10] MEDS ORDERED: ALBUTEROL 2.5 MG/3 ML NEBU IH ONE (19:24)
[2019-05-10] MEDS ORDERED: IPRATROPIUM 0.02% NEBU 2.5 ML IH ONE (19:24)
[2019-05-10] MEDS ORDERED: AZITHROMYCIN 500 MG in SODIUM CHLORIDE 0.9% 250ML 250 ML IV ONE (19:25)
[2019-05-10] MEDS ORDERED: cefTRIAXone/NS 1 GM/50 ML 1 GM/50 ML BAG IV ONE (19:25)
--- NOTE | 2019-05-10 20:37 | Emergency Department Report ---
ED Shortness of Breath HPI - General Chief Complaint: Dyspnea/Respdistress Stated Complaint: SHORTNESS OF BREATH Time Seen by Provider: 05/10/19 19:02 Source: patient Mode of arrival: Wheelchair Limitations: Other (Patient dose not remember her medical hx or amount of O2 she uses at home. ER nurse patient initially refusing care in the ER) - History of Present Illness MD Complaint: shortness of breath -: Gradual Severity: severe Pain Scale: 0 Quality: other (worsening) Improves With: oxygen, bronchodilators Worsens With: exertion Known History Of: COPD (Reports uses home O2. ER nurse reports patient uses 4L home O2) Associated Symptoms: cough, sputum production - Related Data Previous Rx's Medication Instructions Recorded Last Taken Type Combivent Inhaler 1 inhalation IH BID 30 Days 04/09/18 Unknown Rx Albuterol Sulfate [Ventolin HFA] 2 puff IH Q4H PRN #1 pump 04/10/18 Unknown Rx amLODIPine 5 mg PO QDAY #30 tablet 04/10/18 Unknown Rx ALBUTEROL NEB's [Proventil 0.083% 2.5 mg IH TID PRN #90 neb 10/18/18 Unknown Rx NEBS] ALPRAZolam [Xanax TAB] 0.25 mg PO Q8H PRN #14 tablet 10/18/18 Unknown Rx Fluticasone/Salmeterol [Advair 1 each IH BID #1 blst.w.dev 10/18/18 Unknown Rx 500-50 Diskus] Tiotropium [place] [Spiriva 1 each IH DAILY #1 mist.inhal 10/18/18 Unknown Rx Respimat] predniSONE [Deltasone] 10 mg PO .TAPER #48 tab 10/18/18 Unknown Rx Allergies Allergy/AdvReac Type Severity Reaction Status Date / Time No Known Allergies Allergy Verified 05/10/19 13:57 ED Review of Systems ROS: Stated complaint: SHORTNESS OF BREATH Other details as noted in HPI Other: GENERAL: No weight change, fatigue, fever, chills, or night sweats SKIN: No changes in skin or hair, no itching, no rashes, no jaundice HEAD: No trauma EYES: No blurriness, tearing, itching, acute visual loss, conjunctival discoloration, or scleral icterus EARS: No hearing loss, tinnitus, vertigo, or earache NOSE: No rhinorrhea, stuffiness, sneezing, itching, or epistaxis MOUTH: No bleeding gums, hoarseness, sore throat, or swelling CARDIAC: No new murmur, chest pain, palpitations, dyspnea on exertion, orthopnea, PND, or edema RESPIRATORY: Shortness of breath, wheeze, cough, sputum production. Denies hemoptysis GI: No nausea, vomiting, dysphagia, diarrhea, constipation, hematemesis, melena, hematochezia, or abdominal pain URINARY: No frequency, urgency, polyuria, dysuria, hematuria, or incontinence MUSCULOSKELETAL: No muscle weakness, joint stiffness, decrease in range of motio n, redness, swelling NEUROLOGIC: No headache, syncope, loss of sensation, numbness, tingling, tremor s, weakness, paralysis, seizures HEMATOLOGIC: No anemia, easy bruising, bleeding, petechiae, or purpura ENDOCRINE: No hot or cold intolerance, sweating, polyuria, polydipsia or, polyphagia no thyroid problems PSYCHIATRIC: No change in mood, no anxiety, no depression ED Past Medical Hx - Past Medical History Hx Asthma: Yes Hx COPD: Yes Additional medical history: Emphusema - Surgical History Hx Appendectomy: Yes - Social History Smoking Status: Former Smoker Substance Use Type: None - Medications Home Medications: Home Medications Medication Instructions Recorded Confirmed Last Taken Type Combivent Inhaler 1 inhalation IH BID 30 Days 04/09/18 10/15/18 Unknown Rx Albuterol Sulfate [Ventolin HFA] 2 puff IH Q4H PRN #1 pump 04/10/18 10/15/18 Unknown Rx amLODIPine 5 mg PO QDAY #30 tablet 04/10/18 10/15/18 Unknown Rx ALBUTEROL NEB's [Proventil 0.083% 2.5 mg IH TID PRN #90 neb 10/18/18 Unknown Rx NEBS] ALPRAZolam [Xanax TAB] 0.25 mg PO Q8H PRN #14 tablet 10/18/18 Unknown Rx Fluticasone/Salmeterol [Advair 1 each IH BID #1 blst.w.dev 10/18/18 Unknown Rx 500-50 Diskus] Tiotropium [place] [Spiriva 1 each IH DAILY #1 mist.inhal 10/18/18 Unknown Rx Respimat] predniSONE [Deltasone] 10 mg PO .TAPER #48 tab 10/18/18 Unknown Rx ED Physical Exam - General Limitations: Other - Other Other exam information: GENERAL: Patient in no acute distress HEAD: Normocephalic, atraumatic EYES: PERRLA, EOM intact, no scleral icterus, no conjunctival hemorrhage, visual mcneal and acuity wnl NOSE: No tenderness, discharge, sinus tenderness MOUTH: No erythema, bleeding, exudate HEART: Regular rate and rhythm, no murmur, S1-S2 are auscultated, no edema, pulses are symmetric LUNGS: Moderate respiratory distress. Bilateral breath sounds, tachypnea, moderate retractions, mild wheezing. No rales, rhonchi ABDOMEN: Normal bowel sounds, abdomen soft, no tenderness, no rebound, no guarding, no distention, no masses, no CVA tenderness MUSCULOSKELETAL: Normal joint range of motion, no redness, no swelling, no tenderness NEUROLOGIC: Alert, Cranial nerves intact, normal sensation, normal strength, no cerebellar deficit SKIN: Skin is warm and dry, no wounds, no rashes ED Course Vital Signs 05/10/19 05/10/19 05/10/19 14:09 18:42 19:40 Temperature 98.2 F Pulse Rate 109 H 116 H 105 H Pulse Rate [ Bilateral Throughout] Respiratory 24 16 24 Rate Respiratory Rate [Bilateral Throughout] Blood Pressure 106/76 Blood Pressure 114/110 134/92 [Left] O2 Sat by Pulse 97 96 94 Oximetry 05/10/19 05/10/19 05/10/19 19:43 20:35 21:46 Temperature Pulse Rate 128 H 120 H Pulse Rate [ 109 H Bilateral Throughout] Respiratory 24 22 Rate Respiratory 30 H Rate [Bilateral Throughout] Blood Pressure Blood Pressure 131/72 141/73 [Left] O2 Sat by Pulse 94 94 Oximetry ED Medical Decision Making - Lab Data Result diagrams: 05/10/19 14:25 05/10/19 14:25 Laboratory Results - last 24 hr 05/10/19 05/10/19 05/10/19 14:25 14:25 14:25 WBC 7.0 RBC 4.26 Hgb 13.1 Hct 38.4 MCV 90 MCH 31 MCHC 34 RDW 13.4 Plt Count 181 Lymph % (Auto) 28.7 [place] % (Auto) 10.1 H Eos % (Auto) 2.6 Baso % (Auto) 0.5 Lymph # 2.0 [place] # 0.7 Eos # 0.2 Baso # 0.0 Seg Neutrophils % 58.1 Seg Neutrophils # 4.1 D-Dimer 324.12 H Sodium Potassium Chloride Carbon Dioxide Anion Gap BUN Creatinine Estimated GFR BUN/Creatinine Ratio Glucose Lactic Acid 1.80 Calcium Total Creatine Kinase CK-MB (CK-2) CK-MB (CK-2) Rel Index Troponin T NT-Pro-B Natriuret Pep Triglycerides Cholesterol LDL Cholesterol Direct HDL Cholesterol Cholesterol/HDL Ratio 05/10/19 05/10/19 05/10/19 14:25 19:12 19:32 WBC RBC Hgb Hct MCV MCH MCHC RDW Plt Count Lymph % (Auto) [place] % (Auto) Eos % (Auto) Baso % (Auto) Lymph # [place] # Eos # Baso # Seg Neutrophils % Seg Neutrophils # D-Dimer Sodium 140 Potassium 4.1 Chloride 98.1 Carbon Dioxide 25 Anion Gap 21 BUN 15 Creatinine 0.8 Estimated GFR > 60 BUN/Creatinine Ratio 19 Glucose 87 Lactic Acid 0.70 Calcium 9.6 Total Creatine Kinase 196 H CK-MB (CK-2) 14.0 H CK-MB (CK-2) Rel Index 7.1 H Troponin T 0.071 H NT-Pro-B Natriuret Pep 476.1 Triglycerides 82 Cholesterol 200 H LDL Cholesterol Direct 111 HDL Cholesterol 94 H Cholesterol/HDL Ratio 2.12 - EKG Data Rate: tachycardia - EKG Data Interpretation: no acute changes - Radiology Data Radiology results: report reviewed - Medical Decision Making Patient comfortable. Reports symptom improvement. Plan admit for further evaluation. Hospitalist updated and accepts admission. Critical Care Time: Yes Critical care time in (mins) excluding proc time.: 35 Critical care attestation.: If time is entered above; I have spent that time in minutes in the direct care of this critically ill patient, excluding procedure time. 35 ED Disposition Clinical Impression: COPD exacerbation, NSTEMI (non-ST elevated myocardial infarction), Lung mass Pneumonia Qualifiers: Pneumonia type: due to unspecified organism Laterality: unspecified laterality Lung location: unspecified part of lung Qualified Code(s): J18.9 - Pneumonia, unspecified organism Acute respiratory failure Qualifiers: Respiratory failure complication: unspecified whether with hypoxia or hypercapnia Qualified Code(s): J96.00 - Acute respiratory failure, unspecified whether with hypoxia or hypercapnia Disposition: DC-09 OP ADMIT IP TO THIS HOSP Is pt being admited?: Yes Condition: Stable Instructions: Chronic Obstructive Pulmonary Disease (ED), Bacterial Pneumonia (ED) Referrals: PRIMARY CARE,MD [Primary Care Provider] - 3-5 Days
[2019-05-10] MEDS ORDERED: SODIUM CHLORIDE 0.9% 1000 ML 500 ML IV ONE (20:48)
[2019-05-10] MEDS ORDERED: SODIUM CHLORIDE 0.9% 500 ML 500 ML ONE (20:50)
--- NOTE | 2019-05-10 22:10 | Cat Scan Report ---
CTA CHEST WITH IV CONTRAST INDICATION / CLINICAL INFORMATION: Dyspnea. TECHNIQUE: Axial CT images were obtained through the chest after injection of 80 mL Omnipaque 350 IV contrast. 3 plane MIP and/or 3D reconstructions were produced. All CT scans at this location are performed using CT dose reduction for ALARA by means of automated exposure control. COMPARISON: Chest CTA 04/06/2018, chest radiograph 05/10/2019 FINDINGS: PULMONARY ARTERIES: No pulmonary emboli. THORACIC AORTA: No significant change. Advanced atherosclerosis and stable aneurysmal dilatation of t he descending aorta. Fusiform aneurysm in the lower thorax measures 3.1 cm in diameter. Separate aneu rysm approximately at the level of the diaphragmatic hiatus measures 3.7 x 3.3 cm in the transverse p mat. HEART: No significant abnormality. CORONARY ARTERIES: Multivessel coronary atherosclerosis. PLEURA: No pleural effusion. No pneumothorax. LYMPH NODES: No adenopathy. LUNGS: Advanced emphysematous changes. Enlarging solid nodule in the right upper lobe on series 2 afia ge 21, now 1.7 x 1.6 cm in the axial plane compared to 1.7 x 1.2 cm on 04/06/2018. No additional pulm onary discrete nodule is identified. ADDITIONAL FINDINGS: None. UPPER ABDOMEN: No acute findings. SKELETAL STRUCTURES: No acute abnormality. No suspicious lytic or blastic lesion is identified. Exagg erated thoracic kyphosis noted. IMPRESSION: 1. No CT evidence for pulmonary embolism. 2. Enlarging solid nodule in the right upper lobe is highly concerning for bronchogenic carcinoma. No metastasis is identified at this time. 3. Stable aneurysms of the descending aorta, the larger measuring 3.7 cm in width. Signer Name: Stan Mahmood MD Signed: 05/10/2019 10:06 PM Workstation Name: [id number]
--- NOTE | 2019-05-10 22:26 | History and Physical Report ---
History of Present Illness Date of examination: 05/10/19 History of present illness: 83-year-old woman with a history of COPD, lung mass comes emergency room with complaints of shortness of breath not relieved with her nebulizer treatments. She complains of cough productive of white phlegm, no fever, chills Review of systems Constitutional: no weight loss, chills, fever Ears, eyes, nose, mouth and throat: no nasal congestion, no nasal discharge, no sinus pressure, no vision change, no red eye. Neck: No neck pain or rigidity. Cardiovascular: no chest pain, palpitations Respiratory: + cough Gastrointestinal: no abdominal pain hematochezia Genitourinary : no frequency , no hematuria Musculoskeletal: no joint swelling or muscle ache Integumentary: no rash, no pruritis Neurological: no parathesias, no numbness, no focal weakness Endocrine: no cold or heat intolerance, no polyuria or polydipsia Hematologic/Lymphatic: no easy bruising, no easy bleeding, no gland swelling Allergic/Immunologic: no urticaria, no angioedema. PAST MEDICAL HISTORY: COPD, lung mass PAST SURGICAL HISTORY: None SOCIAL HISTORY: One beer a day, no drugs, tobacco FAMILY HISTORY: Hypertension Medications and Allergies Allergies Allergy/AdvReac Type Severity Reaction Status Date / Time No Known Allergies Allergy Verified 05/10/19 13:57 Home Medications Medication Instructions Recorded Confirmed Last Taken Type Combivent Inhaler 1 inhalation IH BID 30 Days 04/09/18 10/15/18 Unknown Rx Albuterol Sulfate [Ventolin HFA] 2 puff IH Q4H PRN #1 pump 04/10/18 10/15/18 Unknown Rx amLODIPine 5 mg PO QDAY #30 tablet 04/10/18 10/15/18 Unknown Rx ALBUTEROL NEB's [Proventil 0.083% 2.5 mg IH TID PRN #90 neb 10/18/18 Unknown Rx NEBS] ALPRAZolam [Xanax TAB] 0.25 mg PO Q8H PRN #14 tablet 10/18/18 Unknown Rx Fluticasone/Salmeterol [Advair 1 each IH BID #1 blst.w.dev 10/18/18 Unknown Rx 500-50 Diskus] Tiotropium [place] [Spiriva 1 each IH DAILY #1 mist.inhal 10/18/18 Unknown Rx Respimat] predniSONE [Deltasone] 10 mg PO .TAPER #48 tab 10/18/18 Unknown Rx Exam - Physical Exam Narrative exam: Gen. appearance: Patient lying in bed, no apparent distress HEENT: Normocephalic, atraumatic, pupils equally round and reactive to light, extraocular movement intact, and no sclericterus,. No JVD or thyromegaly or nodule,neck supple, no carotid bruit ,mucous membranes moist, no exudate or erythema Heart: S1, S2, regular rate and rhythm Lungs: wheezing bilaterally, breathing comfortable Abdomen: Positive bowel sounds, non-tender, nondistended, no organomegaly Extremity:no edema cyanosis, clubbing Skin: no rash, dry, warm Neuro: Oriented 3, cranial nerves II-12 intact, speech is fluent, motor and sensory intact - Constitutional Vitals: Temp Pulse Resp BP Pulse Ox 98.2 F 120 H 22 141/73 94 05/10/19 14:09 05/10/19 21:46 05/10/19 21:46 05/10/19 21:46 05/10/19 21:46 Results - Labs CBC & Chem 7: 05/10/19 14:25 05/10/19 14:25 Labs: Abnormal lab results 05/10/19 05/10/19 05/10/19 Range/Units 14:25 14:25 14:25 [place] % (Auto) 10.1 H (0.0-7.3) % D-Dimer 324.12 H (0-234) ng/mlDDU Total Creatine Kinase 196 H (30-135) units/L CK-MB (CK-2) 14.0 H (0.0-4.0) ng/mL CK-MB (CK-2) Rel Index 7.1 H (0-4) Troponin T 0.071 H (0.00-0.029) ng/mL Cholesterol 200 H (50-199) mg/dL HDL Cholesterol 94 H (40-59) mg/dL - Imaging and Cardiology Chest x-ray: report reviewed CT scan - chest: report reviewed Assessment and Plan Assessment COPD exacerbation Enlarging Lung mass Abnormal cardiac enzymes, asymptomatic Thoracic aneurysm 3.7 cm Plan Admit to medicine Start IV steroids, nebulizer treatments Consult pulmonary, DVT prophylaxis check Cardiac enzymes, echo
[2019-05-10] MEDS ORDERED: ACETAMINOPHEN 325 MG TAB PO PRN (23:19)
[2019-05-10] MEDS ORDERED: ONDANSETRON 4 MG/2 ML INJ IV PRN (23:19)
[2019-05-10] MEDS ORDERED: LEVALBUTEROL 0.63 MG/3 ML NEBU IH PRN (23:21)
[2019-05-10] MEDS ORDERED: IPRATROPIUM 0.02% NEBU 2.5 ML IH PRN (23:21)
[2019-05-10] MEDS ORDERED: ALBUTEROL 2.5 MG/3 ML NEBU IH PRN (23:37)
[2019-05-11] MEDS: methylPREDNISolone Sod Succinate 125 MG/2 ML INJ IV SCH ×4 (00:46→18:32)
[2019-05-11 02:24] LABS: Creatine Kinase MB 12.8 ng/mL (0.0-4.0)
[2019-05-11 02:32] LABS: Hemoglobin 11.6 gm/dl (10.1-14.3); Mean Corpuscular HGB Conc 33 % (30-34); Mean Corpuscular Volume 91 fl (79-97); Platelet Count 152 K/mm3 (140-440); Red Blood Count 3.85 M/mm3 (3.65-5.03); Red Cell Distribution Width 13.1 % (13.2-15.2)
[2019-05-11 02:56] LABS: BUN/Creatinine Ratio 19; Blood Urea Nitrogen 15 mg/dL (7-17); Calcium 8.7 mg/dL (8.4-10.2); Hemolysis Index 2
[2019-05-11 03:42] LABS: Band Neutrophils # (Manual) 0.3 K/mm3; Basophils % (Manual) 0 % (0.0-1.8); Eosinophils % (Manual) 0 % (0.0-4.3); Total Cells Counted 100
[2019-05-11 03:43] LABS: Platelet Estimate Consistent w Auto; RBC Morphology Normal
[2019-05-11 05:42] LABS: Creatine Kinase MB 13.6 ng/mL (0.0-4.0)
[2019-05-11] MEDS ORDERED: DEXTROSE 50% IN WATER (25GM) 50 ML SYRINGE IV PRN (09:24)
[2019-05-11] MEDS: AZITHROMYCIN 500 MG in SODIUM CHLORIDE 0.9% 250ML 250 ML IV SCH (10:51)
[2019-05-11] MEDS ORDERED: ALBUTEROL 2.5 MG/3 ML NEBU IH PRN (11:44)
--- NOTE | 2019-05-11 11:47 | Progress Note ---
Assessment and Plan Assessment and plan: Acute severe COPD exacerbation -She still tachypneic -Continue IV high dose steroids, antibiotic and duonebs Enlarging RT UL nodule per imaging -Patient notified of the finding -Pulmonology consulted Acute on chronic respiratory failure with hypoxia -Continue oxygen supplementation as needed and duonebs Abnormal cardiac enzymes, asymptomatic -No acute chest pain -Likely secondary to demand ischemia due to the severe COPD -Echocardiogram pending Thoracic aneurysm (3.7 cm) per imaging -For outpatient follow-up Hyperglycemia -Probably secondary to steroid use -on SSI -hba1c pending DVT ppx: Lovenox Disposition: Patient continues to be dyspneic and not medically stable for discharge. D/c per clinical course History Interval history: Pt complained of sob. She denies chest pain Hospitalist Physical - Constitutional Vitals: Temp Pulse Resp BP Pulse Ox 98.0 F 105 H 22 118/77 96 05/11/19 07:14 05/11/19 07:14 05/11/19 07:14 05/11/19 07:14 05/11/19 07:14 General appearance: Present: other (moderate acute respiratory distress) - EENT Eyes: Present: PERRL, EOM intact ENT: hearing intact, clear oral mucosa - Neck Neck: Present: supple - Respiratory Respiratory effort: labored Respiratory: bilateral: diminished, negative: wheezing - Cardiovascular Rhythm: regular (with tachycardia) Heart Sounds: Present: S1 & S2 - Extremities Extremities: No edema - Abdominal General gastrointestinal: soft, non-tender, normal bowel sounds - Integumentary Integumentary: Present: warm, dry - Psychiatric Psychiatric: appropriate mood/affect - Neurologic Neurologic: moves all extremities Results - Labs CBC & Chem 7: 05/11/19 02:10 05/11/19 02:10 Labs: Laboratory Last Values WBC 4.5 K/mm3 (4.5-11.0) 05/11/19 02:10 RBC 3.85 M/mm3 (3.65-5.03) 05/11/19 02:10 Hgb 11.6 gm/dl (10.1-14.3) 05/11/19 02:10 Hct 35.0 % (30.3-42.9) 05/11/19 02:10 MCV 91 fl (79-97) 05/11/19 02:10 MCH 30 pg (28-32) 05/11/19 02:10 MCHC 33 % (30-34) 05/11/19 02:10 RDW 13.1 % (13.2-15.2) L 05/11/19 02:10 Plt Count 152 K/mm3 (140-440) 05/11/19 02:10 Lymph % (Auto) 28.7 % (13.4-35.0) 05/10/19 14:25 [place] % (Auto) 10.1 % (0.0-7.3) H 05/10/19 14:25 Eos % (Auto) 2.6 % (0.0-4.3) 05/10/19 14:25 Baso % (Auto) 0.5 % (0.0-1.8) 05/10/19 14:25 Lymph # 2.0 K/mm3 (1.2-5.4) 05/10/19 14:25 [place] # 0.7 K/mm3 (0.0-0.8) 05/10/19 14:25 Eos # 0.2 K/mm3 (0.0-0.4) 05/10/19 14:25 Baso # 0.0 K/mm3 (0.0-0.1) 05/10/19 14:25 Add Manual Diff Complete 05/11/19 02:10 Total Counted 100 05/11/19 02:10 Seg Neutrophils % Power Hammer Operator 05/11/19 02:10 Seg Neuts % (Manual) 86.0 % (40.0-70.0) H 05/11/19 02:10 Band Neutrophils % 7.0 % 05/11/19 02:10 Lymphocytes % (Manual) 5.0 % (13.4-35.0) L 05/11/19 02:10 Reactive Lymphs % (Man) 0 % 05/11/19 02:10 Monocytes % (Manual) 2.0 % (0.0-7.3) 05/11/19 02:10 Eosinophils % (Manual) 0 % (0.0-4.3) 05/11/19 02:10 Basophils % (Manual) 0 % (0.0-1.8) 05/11/19 02:10 Metamyelocytes % 0 % 05/11/19 02:10 Myelocytes % 0 % 05/11/19 02:10 Promyelocytes % 0 % 05/11/19 02:10 Blast Cells % 0 % 05/11/19 02:10 Nucleated RBC % Not Reportable 05/11/19 02:10 Seg Neutrophils # 4.1 K/mm3 (1.8-7.7) 05/10/19 14:25 Seg Neutrophils # Man 3.9 K/mm3 (1.8-7.7) 05/11/19 02:10 Band Neutrophils # 0.3 K/mm3 05/11/19 02:10 Lymphocytes # (Manual) 0.2 K/mm3 (1.2-5.4) L 05/11/19 02:10 Abs React Lymphs (Man) 0.0 K/mm3 05/11/19 02:10 Monocytes # (Manual) 0.1 K/mm3 (0.0-0.8) 05/11/19 02:10 Eosinophils # (Manual) 0.0 K/mm3 (0.0-0.4) 05/11/19 02:10 Basophils # (Manual) 0.0 K/mm3 (0.0-0.1) 05/11/19 02:10 Metamyelocytes # 0.0 K/mm3 05/11/19 02:10 Myelocytes # 0.0 K/mm3 05/11/19 02:10 Promyelocytes # 0.0 K/mm3 05/11/19 02:10 Blast Cells # 0.0 K/mm3 05/11/19 02:10 WBC Morphology Not Reportable 05/11/19 02:10 Hypersegmented Neuts Not Reportable 05/11/19 02:10 Hyposegmented Neuts Not Reportable 05/11/19 02:10 Hypogranular Neuts Not Reportable 05/11/19 02:10 Smudge Cells Not Reportable 05/11/19 02:10 Toxic Granulation Not Reportable 05/11/19 02:10 Toxic Vacuolation Not Reportable 05/11/19 02:10 Dohle Bodies Not Reportable 05/11/19 02:10 Pelger-Huet Anomaly Not Reportable 05/11/19 02:10 Capri Rods Not Reportable 05/11/19 02:10 Platelet Estimate Consistent w auto 05/11/19 02:10 Clumped Platelets Not Reportable 05/11/19 02:10 Plt Clumps, EDTA Not Reportable 05/11/19 02:10 Large Platelets Not Reportable 05/11/19 02:10 Giant Platelets Not Reportable 05/11/19 02:10 Platelet Satelliting Not Reportable 05/11/19 02:10 Plt Morphology Comment Not Reportable 05/11/19 02:10 RBC Morphology Normal 05/11/19 02:10 Dimorphic RBCs Not Reportable 05/11/19 02:10 Polychromasia Not Reportable 05/11/19 02:10 Hypochromasia Not Reportable 05/11/19 02:10 Poikilocytosis Not Reportable 05/11/19 02:10 Anisocytosis Not Reportable 05/11/19 02:10 Microcytosis Not Reportable 05/11/19 02:10 Macrocytosis Not Reportable 05/11/19 02:10 Spherocytes Not Reportable 05/11/19 02:10 Pappenheimer Bodies Not Reportable 05/11/19 02:10 Sickle Cells Not Reportable 05/11/19 02:10 Target Cells Not Reportable 05/11/19 02:10 Tear Drop Cells Not Reportable 05/11/19 02:10 Ovalocytes Not Reportable 05/11/19 02:10 Helmet Cells Not Reportable 05/11/19 02:10 [place] Bodies Not Reportable 05/11/19 02:10 Black Rings Not Reportable 05/11/19 02:10 [place] Cells Not Reportable 05/11/19 02:10 Bite Cells Not Reportable 05/11/19 02:10 Crenated Cell Not Reportable 05/11/19 02:10 Elliptocytes Not Reportable 05/11/19 02:10 Acanthocytes (Spur) Not Reportable 05/11/19 02:10 Rouleaux Not Reportable 05/11/19 02:10 Hemoglobin C Crystals Not Reportable 05/11/19 02:10 Schistocytes Not Reportable 05/11/19 02:10 [place] parasites Not Reportable 05/11/19 02:10 [place] Bodies Not Reportable 05/11/19 02:10 Hem Pathologist Commnt No 05/11/19 02:10 D-Dimer 324.12 ng/mlDDU (0-234) H 05/10/19 14:25 Sodium 142 mmol/L (137-145) 05/11/19 02:10 Potassium 3.9 mmol/L (3.6-5.0) 05/11/19 02:10 Chloride 98.8 mmol/L (98-107) 05/11/19 02:10 Carbon Dioxide 28 mmol/L (22-30) 05/11/19 02:10 Anion Gap 19 mmol/L 05/11/19 02:10 BUN 15 mg/dL (7-17) 05/11/19 02:10 Creatinine 0.8 mg/dL (0.7-1.2) 05/11/19 02:10 Estimated GFR > 60 ml/min 05/11/19 02:10 BUN/Creatinine Ratio 19 % 05/11/19 02:10 Glucose 209 mg/dL (65-100) H 05/11/19 02:10 POC Glucose 124 (70-105) H 05/11/19 07:24 Lactic Acid 0.70 mmol/L (0.7-2.0) 05/10/19 19:32 Calcium 8.7 mg/dL (8.4-10.2) 05/11/19 02:10 Total Creatine Kinase 207 units/L (30-135) H 05/11/19 04:54 CK-MB (CK-2) 13.6 ng/mL (0.0-4.0) H 05/11/19 04:54 CK-MB (CK-2) Rel Index 6.5 (0-4) H 05/11/19 04:54 Troponin T 0.036 ng/mL (0.00-0.029) H D 05/11/19 04:54 NT-Pro-B Natriuret Pep 476.1 pg/mL (0-900) 05/10/19 19:12 Triglycerides 82 mg/dL (2-149) 05/10/19 14:25 Cholesterol 200 mg/dL (50-199) H 05/10/19 14:25 LDL Cholesterol Direct 111 mg/dL (50-130) 05/10/19 14:25 HDL Cholesterol 94 mg/dL (40-59) H 05/10/19 14:25 Cholesterol/HDL Ratio 2.12 % 05/10/19 14:25 Active Medications - Current Medications Current Medications: Generic Name Dose Route Start Last Admin Trade Name Freq PRN Reason Stop Dose Admin Acetaminophen 650 mg 05/10/19 23:19 Tylenol PO Q4H PRN Pain MILD(1-3)/Fever >100.5/OCHOA Albuterol 1.25 mg 05/10/19 23:37 Proventil IH Q4HRT PRN Shortness Of Breath Dextrose 50 ml 05/11/19 09:24 D50w (25gm) Syringe IV Q30MIN PRN Hypoglycemia Protocol Azithromycin 500 mg/ Sodium 250 mls @ 250 mls/hr 05/11/19 10:00 05/11/19 10:51 Chloride IV 250 mls/hr Q24H [facility] Administration Protocol Insulin Human Lispro 0 unit 05/11/19 11:30 Humalog SUB-Q ACHS [facility] Protocol Ipratropium [place] 0.5 mg 05/10/19 23:21 Atrovent IH Q4HRT PRN Shortness Of Breath Methylprednisolone Sodium Succinate 125 mg 05/11/19 01:30 05/11/19 10:51 Solu-Medrol IV 125 mg Q6H [facility] Administration Ondansetron HCl 4 mg 05/10/19 23:19 Zofran IV Q8H PRN Nausea And Vomiting Sodium Chloride 10 ml 05/11/19 10:00 05/11/19 10:51 Sodium Chloride Flush Syringe 10 Ml IV 10 ml BID BISMARK Administration Sodium Chloride 10 ml 05/10/19 23:19 Sodium Chloride Flush Syringe 10 Ml IV PRN PRN LINE FLUSH
[2019-05-11] MEDS ORDERED: ALBUTEROL 2.5 MG/3 ML NEBU IH SCH (12:00)
--- NOTE | 2019-05-11 12:09 | Consultation ---
History of Present Illness Consult date: 05/11/19 Requesting physician: SRIDHAR PIEDRA Reason for consult: COPD, abnormal CXR/CT History of present illness: 83 y/o female with known severe emphysema and COPD, also known spiculated nodule admitted with [employer] exacerbation. CTA done for PE, which was negative but showed enlarging lesion in the upper lobe. Patient endorses that she knows about the lesion and has chosen not to pursue further work up of this. Also per patient, new drugs started by our office (lior) are not working. Only combivent works for her. Remainder is negative. Past History Past Medical History: COPD Medications and Allergies Allergies Allergy/AdvReac Type Severity Reaction Status Date / Time No Known Allergies Allergy Verified 05/10/19 13:57 Home Medications Medication Instructions Recorded Confirmed Last Taken Type Combivent Inhaler 1 inhalation IH BID 30 Days 04/09/18 05/11/19 Unknown Rx Albuterol Sulfate [Ventolin HFA] 2 puff IH Q4H PRN #1 pump 04/10/18 05/11/19 Unknown Rx amLODIPine 5 mg PO QDAY #30 tablet 04/10/18 05/11/19 Unknown Rx ALBUTEROL NEB's [Proventil 0.083% 2.5 mg IH TID PRN #90 neb 10/18/18 05/11/19 Unknown Rx NEBS] ALPRAZolam [Xanax TAB] 0.25 mg PO Q8H PRN #14 tablet 10/18/18 05/11/19 Unknown Rx Fluticasone/Salmeterol [Advair 1 each IH BID #1 blst.w.dev 10/18/18 05/11/19 Unknown Rx 500-50 Diskus] Tiotropium [place] [Spiriva 1 each IH DAILY #1 mist.inhal 10/18/18 05/11/19 Unknown Rx Respimat] predniSONE [Deltasone] 10 mg PO .TAPER #48 tab 10/18/18 05/11/19 Unknown Rx Active Meds: Active Medications Acetaminophen (Tylenol) 650 mg PO Q4H PRN PRN Reason: Pain MILD(1-3)/Fever >100.5/[place]CHO[place] Albuterol (Proventil) 2.5 mg IH Q2HRT PRN PRN Reason: Shortness Of Breath Albuterol/Ipratropium (Duoneb *Not For Prn Use*) 1 ampul IH Q4HRT [facility] Dextrose (D50w (25gm) Syringe) 50 ml IV Q30MIN PRN; Protocol PRN Reason: Hypoglycemia Azithromycin 500 mg/ Sodium (Chloride) 250 mls @ 250 mls/hr IV Q24H [facility]; Protocol Last Admin: 05/11/19 10:51 Dose: 250 mls/hr Documented by: Insulin Human Lispro (Humalog) 0 unit SUB-Q ACHS [facility]; Protocol Methylprednisolone Sodium Succinate (Solu-Medrol) 125 mg IV Q6H [facility] Last Admin: 05/11/19 10:51 Dose: 125 mg Documented by: Ondansetron HCl (Zofran) 4 mg IV Q8H PRN PRN Reason: Nausea And Vomiting Sodium Chloride (Sodium Chloride Flush Syringe 10 Ml) 10 ml IV BID [facility] Last Admin: 05/11/19 10:51 Dose: 10 ml Documented by: Sodium Chloride (Sodium Chloride Flush Syringe 10 Ml) 10 ml IV PRN PRN PRN Reason: LINE FLUSH Review of Systems All systems: negative Physical Examination Vital signs: Vital Signs Temp Pulse Resp BP Pulse Ox 98.2 F 109 H 24 106/76 97 05/10/19 14:09 05/10/19 14:09 05/10/19 14:09 05/10/19 14:09 05/10/19 14:09 General appearance: alert, appears uncomfortable, other (mild distress) Eyes: non-icteric ENT: oropharynx moist Neck: supple Effort: mildly labored Ascultation: Bilateral: diminished breath sounds, wheezes Percussion: Bilateral: not dull Cardiovascular: regular rate and rhythm Gastrointestinal: normoactive bowel sounds, soft normal mental status, non-focal exam Results - Laboratory Findings CBC and BMP: 05/11/19 02:10 05/11/19 02:10 PT/INR, D-dimer D-Dimer 324.12 ng/mlDDU (0-234) H 05/10/19 14:25 Abnormal lab findings: Abnormal Labs 05/10/19 05/10/19 05/10/19 14:25 14:25 14:25 RDW [place] % (Auto) 10.1 H Seg Neuts % (Manual) Lymphocytes % (Manual) Lymphocytes # (Manual) D-Dimer 324.12 H Glucose POC Glucose Total Creatine Kinase 196 H CK-MB (CK-2) 14.0 H CK-MB (CK-2) Rel Index 7.1 H Troponin T 0.071 H Cholesterol 200 H HDL Cholesterol 94 H 05/11/19 05/11/19 05/11/19 01:27 02:10 02:10 RDW 13.1 L [place] % (Auto) Seg Neuts % (Manual) 86.0 H Lymphocytes % (Manual) 5.0 L Lymphocytes # (Manual) 0.2 L D-Dimer Glucose 209 H POC Glucose Total Creatine Kinase 198 H CK-MB (CK-2) 12.8 H CK-MB (CK-2) Rel Index 6.4 H Troponin T 0.049 H D Cholesterol HDL Cholesterol 05/11/19 05/11/19 04:54 07:24 RDW [place] % (Auto) Seg Neuts % (Manual) Lymphocytes % (Manual) Lymphocytes # (Manual) D-Dimer Glucose POC Glucose 124 H Total Creatine Kinase 207 H CK-MB (CK-2) 13.6 H CK-MB (CK-2) Rel Index 6.5 H Troponin T 0.036 H D Cholesterol HDL Cholesterol - Diagnostic Findings Chest x-ray: image reviewed (as stated in HPI) CT scan - chest: image reviewed (severe emphysema, panlobular with right upper lobe lesion, concerning for malignancy) Assessment and Plan 83 y/o female with known COPD, severe emphysema with upper lobe spiculated nodule, admitted with COPD exacerbation and enlarging nodule 1. Patient follows with [facility], on Monday can access records 2. Agree with High dose IV steroids for now 3. Supplemental O2 4. Will add BID pulmicort therapy 5. Patient has expressed knowledge of lesion and does not want any further work up of this.
[2019-05-11] MEDS: INSULIN LISPRO 100 UNIT/ML SUB-Q SCH ×3 (12:28→22:12)
[2019-05-11] MEDS: BUDESONIDE 0.5 MG/2 ML NEBU IH SCH (19:42)
[2019-05-11] MEDS: IPRATROPIUM/ALBUTEROL SULFATE 3 ML AMPUL.NEB IH SCH ×2 (19:42)
[2019-05-12] MEDS: IPRATROPIUM/ALBUTEROL SULFATE 3 ML AMPUL.NEB IH SCH ×6 (00:43→19:54)
[2019-05-12] MEDS: methylPREDNISolone Sod Succinate 125 MG/2 ML INJ IV SCH ×4 (01:35→19:51)
[2019-05-12] MEDS: BUDESONIDE 0.5 MG/2 ML NEBU IH SCH ×2 (07:41→19:54)
[2019-05-12] MEDS: INSULIN LISPRO 100 UNIT/ML SUB-Q SCH ×4 (08:06→22:03)
[2019-05-12] MEDS: AZITHROMYCIN 500 MG in SODIUM CHLORIDE 0.9% 250ML 250 ML IV SCH (09:43)
[2019-05-12] MEDS ORDERED: ALPRAZolam 0.25 MG TAB PO PRN (11:04)
--- NOTE | 2019-05-12 11:06 | Progress Note ---
Assessment and Plan Assessment and plan: Acute severe COPD exacerbation -Continue IV steroids, antibiotic, duonebs and pulmicort Enlarging RT UL nodule per imaging -Patient notified of the finding -Pulmonology consulted Acute on chronic respiratory failure with hypoxia -Continue oxygen supplementation as needed and duonebs SIRS due to noninfectious cause with organ failure -will monitor Abnormal cardiac enzymes, asymptomatic -No acute chest pain -Likely secondary to demand ischemia due to the severe COPD -Echocardiogram showed EF of 55-60% with diastolic dysf without wall motion abns Thoracic aneurysm (3.7 cm) per imaging --Patient notified of the finding -For outpatient follow-up Hyperglycemia -secondary to steroid use -on SSI -hba1c:5.2 DVT ppx: Lovenox Disposition: D/c per clinical course. f/u pulmonology recs History Interval history: pt continues to complain of shortness of breath Hospitalist Physical - Constitutional Vitals: Temp Pulse Resp BP Pulse Ox 97.7 F 105 H 25 H 135/68 93 05/12/19 08:11 05/12/19 08:14 05/12/19 08:14 05/12/19 08:11 05/12/19 08:11 General appearance: Present: mild distress - EENT Eyes: Present: PERRL, EOM intact ENT: hearing intact, clear oral mucosa - Neck Neck: Present: supple - Respiratory Respiratory effort: labored Respiratory: bilateral: diminished, negative: wheezing - Cardiovascular Rhythm: regular (with tachycardia) - Extremities Extremities: No edema - Abdominal General gastrointestinal: soft, non-tender, normal bowel sounds - Integumentary Integumentary: Present: warm, dry - Psychiatric Psychiatric: cooperative - Neurologic Neurologic: moves all extremities Results - Labs CBC & Chem 7: 05/11/19 02:10 05/11/19 02:10 Labs: Laboratory Last Values WBC 4.5 K/mm3 (4.5-11.0) 05/11/19 02:10 RBC 3.85 M/mm3 (3.65-5.03) 05/11/19 02:10 Hgb 11.6 gm/dl (10.1-14.3) 05/11/19 02:10 Hct 35.0 % (30.3-42.9) 05/11/19 02:10 MCV 91 fl (79-97) 05/11/19 02:10 MCH 30 pg (28-32) 05/11/19 02:10 MCHC 33 % (30-34) 05/11/19 02:10 RDW 13.1 % (13.2-15.2) L 05/11/19 02:10 Plt Count 152 K/mm3 (140-440) 05/11/19 02:10 Lymph % (Auto) 28.7 % (13.4-35.0) 05/10/19 14:25 Isabella % (Auto) 10.1 % (0.0-7.3) H 05/10/19 14:25 Eos % (Auto) 2.6 % (0.0-4.3) 05/10/19 14:25 Baso % (Auto) 0.5 % (0.0-1.8) 05/10/19 14:25 Lymph # 2.0 K/mm3 (1.2-5.4) 05/10/19 14:25 Isabella # 0.7 K/mm3 (0.0-0.8) 05/10/19 14:25 Eos # 0.2 K/mm3 (0.0-0.4) 05/10/19 14:25 Baso # 0.0 K/mm3 (0.0-0.1) 05/10/19 14:25 Add Manual Diff Complete 05/11/19 02:10 Total Counted 100 05/11/19 02:10 Seg Neutrophils % Principal Bioinformatics Specialist 05/11/19 02:10 Seg Neuts % (Manual) 86.0 % (40.0-70.0) H 05/11/19 02:10 Band Neutrophils % 7.0 % 05/11/19 02:10 Lymphocytes % (Manual) 5.0 % (13.4-35.0) L 05/11/19 02:10 Reactive Lymphs % (Man) 0 % 05/11/19 02:10 Monocytes % (Manual) 2.0 % (0.0-7.3) 05/11/19 02:10 Eosinophils % (Manual) 0 % (0.0-4.3) 05/11/19 02:10 Basophils % (Manual) 0 % (0.0-1.8) 05/11/19 02:10 Metamyelocytes % 0 % 05/11/19 02:10 Myelocytes % 0 % 05/11/19 02:10 Promyelocytes % 0 % 05/11/19 02:10 Blast Cells % 0 % 05/11/19 02:10 Nucleated RBC % Not Reportable 05/11/19 02:10 Seg Neutrophils # 4.1 K/mm3 (1.8-7.7) 05/10/19 14:25 Seg Neutrophils # Man 3.9 K/mm3 (1.8-7.7) 05/11/19 02:10 Band Neutrophils # 0.3 K/mm3 05/11/19 02:10 Lymphocytes # (Manual) 0.2 K/mm3 (1.2-5.4) L 05/11/19 02:10 Abs React Lymphs (Man) 0.0 K/mm3 05/11/19 02:10 Monocytes # (Manual) 0.1 K/mm3 (0.0-0.8) 05/11/19 02:10 Eosinophils # (Manual) 0.0 K/mm3 (0.0-0.4) 05/11/19 02:10 Basophils # (Manual) 0.0 K/mm3 (0.0-0.1) 05/11/19 02:10 Metamyelocytes # 0.0 K/mm3 05/11/19 02:10 Myelocytes # 0.0 K/mm3 05/11/19 02:10 Promyelocytes # 0.0 K/mm3 05/11/19 02:10 Blast Cells # 0.0 K/mm3 05/11/19 02:10 WBC Morphology Not Reportable 05/11/19 02:10 Hypersegmented Neuts Not Reportable 05/11/19 02:10 Hyposegmented Neuts Not Reportable 05/11/19 02:10 Hypogranular Neuts Not Reportable 05/11/19 02:10 Smudge Cells Not Reportable 05/11/19 02:10 Toxic Granulation Not Reportable 05/11/19 02:10 Toxic Vacuolation Not Reportable 05/11/19 02:10 Dohle Bodies Not Reportable 05/11/19 02:10 Pelger-Huet Anomaly Not Reportable 05/11/19 02:10 Capri Rods Not Reportable 05/11/19 02:10 Platelet Estimate Consistent w auto 05/11/19 02:10 Clumped Platelets Not Reportable 05/11/19 02:10 Plt Clumps, EDTA Not Reportable 05/11/19 02:10 Large Platelets Not Reportable 05/11/19 02:10 Giant Platelets Not Reportable 05/11/19 02:10 Platelet Satelliting Not Reportable 05/11/19 02:10 Plt Morphology Comment Not Reportable 05/11/19 02:10 RBC Morphology Normal 05/11/19 02:10 Dimorphic RBCs Not Reportable 05/11/19 02:10 Polychromasia Not Reportable 05/11/19 02:10 Hypochromasia Not Reportable 05/11/19 02:10 Poikilocytosis Not Reportable 05/11/19 02:10 Anisocytosis Not Reportable 05/11/19 02:10 Microcytosis Not Reportable 05/11/19 02:10 Macrocytosis Not Reportable 05/11/19 02:10 Spherocytes Not Reportable 05/11/19 02:10 Pappenheimer Bodies Not Reportable 05/11/19 02:10 Sickle Cells Not Reportable 05/11/19 02:10 Target Cells Not Reportable 05/11/19 02:10 Tear Drop Cells Not Reportable 05/11/19 02:10 Ovalocytes Not Reportable 05/11/19 02:10 Helmet Cells Not Reportable 05/11/19 02:10 [place] Bodies Not Reportable 05/11/19 02:10 [place] Rings Not Reportable 05/11/19 02:10 [place] Cells Not Reportable 05/11/19 02:10 Bite Cells Not Reportable 05/11/19 02:10 Crenated Cell Not Reportable 05/11/19 02:10 Elliptocytes Not Reportable 05/11/19 02:10 Acanthocytes (Spur) Not Reportable 05/11/19 02:10 Rouleaux Not Reportable 05/11/19 02:10 Hemoglobin C Crystals Not Reportable 05/11/19 02:10 Schistocytes Not Reportable 05/11/19 02:10 Malaria parasites Not Reportable 05/11/19 02:10 Kemal Bodies Not Reportable 05/11/19 02:10 Hem Pathologist Commnt No 05/11/19 02:10 D-Dimer 324.12 ng/mlDDU (0-234) H 05/10/19 14:25 Sodium 142 mmol/L (137-145) 05/11/19 02:10 Potassium 3.9 mmol/L (3.6-5.0) 05/11/19 02:10 Chloride 98.8 mmol/L (98-107) 05/11/19 02:10 Carbon Dioxide 28 mmol/L (22-30) 05/11/19 02:10 Anion Gap 19 mmol/L 05/11/19 02:10 BUN 15 mg/dL (7-17) 05/11/19 02:10 Creatinine 0.8 mg/dL (0.7-1.2) 05/11/19 02:10 Estimated GFR > 60 ml/min 05/11/19 02:10 BUN/Creatinine Ratio 19 % 05/11/19 02:10 Glucose 209 mg/dL (65-100) H 05/11/19 02:10 POC Glucose 139 (70-105) H 05/12/19 07:44 Hemoglobin A1c 5.2 % (4-6) 05/12/19 05:28 Lactic Acid 0.70 mmol/L (0.7-2.0) 05/10/19 19:32 Calcium 8.7 mg/dL (8.4-10.2) 05/11/19 02:10 Total Creatine Kinase 207 units/L (30-135) H 05/11/19 04:54 CK-MB (CK-2) 13.6 ng/mL (0.0-4.0) H 05/11/19 04:54 CK-MB (CK-2) Rel Index 6.5 (0-4) H 05/11/19 04:54 Troponin T 0.036 ng/mL (0.00-0.029) H D 05/11/19 04:54 NT-Pro-B Natriuret Pep 476.1 pg/mL (0-900) 05/10/19 19:12 Triglycerides 82 mg/dL (2-149) 05/10/19 14:25 Cholesterol 200 mg/dL (50-199) H 05/10/19 14:25 LDL Cholesterol Direct 111 mg/dL (50-130) 05/10/19 14:25 HDL Cholesterol 94 mg/dL (40-59) H 05/10/19 14:25 Cholesterol/HDL Ratio 2.12 % 05/10/19 14:25 Active Medications - Current Medications Current Medications: Generic Name Dose Route Start Last Admin Trade Name Markq PRN Reason Stop Dose Admin Acetaminophen 650 mg 05/10/19 23:19 Tylenol PO Q4H PRN Pain MILD(1-3)/Fever >100.5/OCHOA Albuterol 2.5 mg 05/11/19 11:44 Proventil IH Q2HRT PRN Shortness Of Breath Albuterol/Ipratropium 1 ampul 05/11/19 13:00 05/12/19 07:41 Duoneb *Not For Prn Use* IH 1 ampul Q4HRT BISMARK Administration Budesonide 0.5 mg 05/11/19 20:00 05/12/19 07:41 Pulmicort IH 0.5 mg Q12HRT BISMARK Administration Dextrose 50 ml 05/11/19 09:24 D50w (25gm) Syringe IV Q30MIN PRN Hypoglycemia Protocol Azithromycin 500 mg/ Sodium 250 mls @ 250 mls/hr 05/11/19 10:00 05/12/19 09:43 Chloride IV 250 mls/hr Q24H BISMARK Administration Protocol Insulin Human Lispro 0 unit 05/11/19 11:30 05/12/19 08:06 Humalog SUB-Q Not Given ACHS [facility] Protocol Methylprednisolone Sodium Succinate 125 mg 05/11/19 01:30 05/12/19 08:31 Solu-Medrol IV Not Given Q6H [facility] Ondansetron HCl 4 mg 05/10/19 23:19 Zofran IV Q8H PRN Nausea And Vomiting Sodium Chloride 10 ml 05/11/19 10:00 05/12/19 09:43 Sodium Chloride Flush Syringe 10 Ml IV 10 ml BID BISMARK Administration Sodium Chloride 10 ml 05/10/19 23:19 Sodium Chloride Flush Syringe 10 Ml IV PRN PRN LINE FLUSH
--- NOTE | 2019-05-12 11:12 | Progress Note ---
Assessment and Plan 83 y/o female with known COPD, severe emphysema with upper lobe spiculated nodule, admitted with COPD exacerbation and enlarging nodule 1. Patient follows with [facility], on Monday can access records to see what meds she is on so this can be addressed at discharge. 2. Agree with High dose IV steroids for now 3. Supplemental O2 4. Continue BID pulmicort therapy along with scheduled duonebs 5. Patient has expressed knowledge of lesion and does not want any further work up of this. 6. Overall prognosis is guarded to poor. Bipap PRN Subjective Date of service: 05/12/19 Interval history: No acute events. Still remains short of breath. WOB slightly better. Objective Vital Signs - 12hr 05/11/19 05/12/19 05/12/19 23:38 02:08 07:41 Temperature 97.5 F L Pulse Rate 92 H 102 H Pulse Rate [ Bilateral Throughout] Respiratory 20 Rate Respiratory Rate [Bilateral Throughout] Blood Pressure 156/76 O2 Sat by Pulse 93 90 Oximetry 05/12/19 05/12/19 08:11 08:14 Temperature 97.7 F Pulse Rate 112 H Pulse Rate [ 105 H Bilateral Throughout] Respiratory 20 Rate Respiratory 25 H Rate [Bilateral Throughout] Blood Pressure 135/68 O2 Sat by Pulse 93 Oximetry Constitutional: alert, appears uncomfortable, other (mild distress) Eyes: non-icteric ENT: oropharynx moist Neck: supple Effort: mildly labored Ascultation: Bilateral: diminished breath sounds, wheezes Percussion: Bilateral: not dull Cardiovascular: regular rate and rhythm Gastrointestinal: normoactive bowel sounds, soft Neurologic: normal mental status, non-focal exam CBC and BMP: 05/11/19 02:10 05/11/19 02:10 ABG, PT/INR, D-dimer: PT/INR, D-dimer D-Dimer 324.12 ng/mlDDU (0-234) H 05/10/19 14:25 Abnormal lab findings: Abnormal Labs 05/10/19 05/10/19 05/10/19 14:25 14:25 14:25 RDW [place] % (Auto) 10.1 H Seg Neuts % (Manual) Lymphocytes % (Manual) Lymphocytes # (Manual) D-Dimer 324.12 H Glucose POC Glucose Total Creatine Kinase 196 H CK-MB (CK-2) 14.0 H CK-MB (CK-2) Rel Index 7.1 H Troponin T 0.071 H Cholesterol 200 H HDL Cholesterol 94 H 05/11/19 05/11/19 05/11/19 01:27 02:10 02:10 RDW 13.1 L [place] % (Auto) Seg Neuts % (Manual) 86.0 H Lymphocytes % (Manual) 5.0 L Lymphocytes # (Manual) 0.2 L D-Dimer Glucose 209 H POC Glucose Total Creatine Kinase 198 H CK-MB (CK-2) 12.8 H CK-MB (CK-2) Rel Index 6.4 H Troponin T 0.049 H D Cholesterol HDL Cholesterol 05/11/19 05/11/19 05/11/19 04:54 07:24 16:45 RDW [place] % (Auto) Seg Neuts % (Manual) Lymphocytes % (Manual) Lymphocytes # (Manual) D-Dimer Glucose POC Glucose 124 H 178 H Total Creatine Kinase 207 H CK-MB (CK-2) 13.6 H CK-MB (CK-2) Rel Index 6.5 H Troponin T 0.036 H D Cholesterol HDL Cholesterol 05/11/19 05/12/19 21:46 07:44 RDW [place] % (Auto) Seg Neuts % (Manual) Lymphocytes % (Manual) Lymphocytes # (Manual) D-Dimer Glucose POC Glucose 115 H 139 H Total Creatine Kinase CK-MB (CK-2) CK-MB (CK-2) Rel Index Troponin T Cholesterol HDL Cholesterol
[2019-05-12] MEDS ORDERED: FLUTICASONE IH SCH (11:15)
[2019-05-12] MEDS ORDERED: SALMETEROL IH SCH (11:15)
[2019-05-12] MEDS: amLODIPine 5 MG TAB PO SCH (14:15)
[2019-05-12] MEDS: guaiFENesin ER 600 MG TAB PO SCH ×2 (14:15→22:03)
[2019-05-13] MEDS: IPRATROPIUM/ALBUTEROL SULFATE 3 ML AMPUL.NEB IH SCH ×6 (00:19→20:01)
[2019-05-13] MEDS: methylPREDNISolone Sod Succinate 125 MG/2 ML INJ IV SCH ×4 (00:20→18:42)
[2019-05-13] MEDS: BUDESONIDE 0.5 MG/2 ML NEBU IH SCH ×2 (08:00→20:01)
[2019-05-13] MEDS: INSULIN LISPRO 100 UNIT/ML SUB-Q SCH ×4 (08:16→22:17)
[2019-05-13] MEDS: amLODIPine 5 MG TAB PO SCH (10:15)
[2019-05-13] MEDS: guaiFENesin ER 600 MG TAB PO SCH ×2 (10:16→22:16)
[2019-05-13] MEDS: AZITHROMYCIN 500 MG in SODIUM CHLORIDE 0.9% 250ML 250 ML IV SCH (15:29)
--- NOTE | 2019-05-13 16:28 | Progress Note ---
Assessment and Plan Assessment and plan: 83-year-old woman with a history of COPD, lung mass comes emergency room with complaints of shortness of breath not relieved with her nebulizer treatments. She complains of cough productive of white phlegm, no fever, chills PAST MEDICAL HISTORY: COPD, lung mass HTN -stable -home amlodipine resumed Acute severe COPD exacerbation -Continue IV steroids, antibiotic, duonebs and pulmicort Enlarging RT UL nodule per imaging -Patient notified of the finding -Pulmonology consulted Acute on chronic respiratory failure with hypoxia -Continue oxygen supplementation as needed and duonebs SIRS due to noninfectious cause with organ failure -will monitor Abnormal cardiac enzymes, asymptomatic -No acute chest pain -Likely secondary to demand ischemia due to the severe COPD -Echocardiogram showed EF of 55-60% with diastolic dysf without wall motion abns Thoracic aneurysm (3.7 cm) per imaging --Patient notified of the finding -For outpatient follow-up Hyperglycemia -secondary to steroid use -on SSI -hba1c:5.2 DVT ppx: Lovenox Disposition: D/c per clinical course. f/u pulmonology recs History Interval history: Review of systems Constitutional: No fevers, no malaise, no joint pains CVS: No chest pain, no orthopnea, no pedal edema GI: No abdominal pain, no diarrhea, no vomiting, no constipation Respiratory: , Continues to complain of shortness of breath, denies wheezing or coughing Hospitalist Physical - Physical exam Narrative exam: General.: Cachectic, appears chronically ill HEENT: Moist mucous membranes, extraocular muscles intact, no lymphadenopathy Neck: supple Cardiac: S1-S2 heard Lungs: Decreased air entry Abdomen: soft , nontender, nondistended, bowel sounds positive Extremities: no edema clubbing or cyanosis Skin: no rash or lesions Neurologic: no gross focal deficits Psych: calm, and cooperative - Constitutional Vitals: Temp Pulse Resp BP Pulse Ox 97.5 F L 119 H 14 134/79 97 05/13/19 07:30 05/13/19 13:03 05/13/19 13:03 05/13/19 10:15 05/13/19 10:14 General appearance: Present: mild distress Results - Labs CBC & Chem 7: 05/11/19 02:10 05/11/19 02:10 Labs: Laboratory Last Values WBC 4.5 K/mm3 (4.5-11.0) 05/11/19 02:10 RBC 3.85 M/mm3 (3.65-5.03) 05/11/19 02:10 Hgb 11.6 gm/dl (10.1-14.3) 05/11/19 02:10 Hct 35.0 % (30.3-42.9) 05/11/19 02:10 MCV 91 fl (79-97) 05/11/19 02:10 MCH 30 pg (28-32) 05/11/19 02:10 MCHC 33 % (30-34) 05/11/19 02:10 RDW 13.1 % (13.2-15.2) L 05/11/19 02:10 Plt Count 152 K/mm3 (140-440) 05/11/19 02:10 Lymph % (Auto) 28.7 % (13.4-35.0) 05/10/19 14:25 [place] % (Auto) 10.1 % (0.0-7.3) H 05/10/19 14:25 Eos % (Auto) 2.6 % (0.0-4.3) 05/10/19 14:25 Baso % (Auto) 0.5 % (0.0-1.8) 05/10/19 14:25 Lymph # 2.0 K/mm3 (1.2-5.4) 05/10/19 14:25 [place] # 0.7 K/mm3 (0.0-0.8) 05/10/19 14:25 Eos # 0.2 K/mm3 (0.0-0.4) 05/10/19 14:25 Baso # 0.0 K/mm3 (0.0-0.1) 05/10/19 14:25 Add Manual Diff Complete 05/11/19 02:10 Total Counted 100 05/11/19 02:10 Seg Neutrophils % Account Manager 05/11/19 02:10 Seg Neuts % (Manual) 86.0 % (40.0-70.0) H 05/11/19 02:10 Band Neutrophils % 7.0 % 05/11/19 02:10 Lymphocytes % (Manual) 5.0 % (13.4-35.0) L 05/11/19 02:10 Reactive Lymphs % (Man) 0 % 11/23/19 02:10 Monocytes % (Manual) 2.0 % (0.0-7.3) 05/11/19 02:10 Eosinophils % (Manual) 0 % (0.0-4.3) 05/11/19 02:10 Basophils % (Manual) 0 % (0.0-1.8) 05/11/19 02:10 Metamyelocytes % 0 % 05/11/19 02:10 Myelocytes % 0 % 05/11/19 02:10 Promyelocytes % 0 % 05/11/19 02:10 Blast Cells % 0 % 05/11/19 02:10 Nucleated RBC % Not Reportable 05/11/19 02:10 Seg Neutrophils # 4.1 K/mm3 (1.8-7.7) 05/10/19 14:25 Seg Neutrophils # Man 3.9 K/mm3 (1.8-7.7) 05/11/19 02:10 Band Neutrophils # 0.3 K/mm3 05/11/19 02:10 Lymphocytes # (Manual) 0.2 K/mm3 (1.2-5.4) L 05/11/19 02:10 Abs React Lymphs (Man) 0.0 K/mm3 05/11/19 02:10 Monocytes # (Manual) 0.1 K/mm3 (0.0-0.8) 05/11/19 02:10 Eosinophils # (Manual) 0.0 K/mm3 (0.0-0.4) 05/11/19 02:10 Basophils # (Manual) 0.0 K/mm3 (0.0-0.1) 05/11/19 02:10 Metamyelocytes # 0.0 K/mm3 05/11/19 02:10 Myelocytes # 0.0 K/mm3 05/11/19 02:10 Promyelocytes # 0.0 K/mm3 05/11/19 02:10 Blast Cells # 0.0 K/mm3 05/11/19 02:10 WBC Morphology Not Reportable 05/11/19 02:10 Hypersegmented Neuts Not Reportable 05/11/19 02:10 Hyposegmented Neuts Not Reportable 05/11/19 02:10 Hypogranular Neuts Not Reportable 05/11/19 02:10 Smudge Cells Not Reportable 05/11/19 02:10 Toxic Granulation Not Reportable 05/11/19 02:10 Toxic Vacuolation Not Reportable 05/11/19 02:10 Dohle Bodies Not Reportable 05/11/19 02:10 Pelger-Huet Anomaly Not Reportable 05/11/19 02:10 Capri Rods Not Reportable 05/11/19 02:10 Platelet Estimate Consistent w auto 05/11/19 02:10 Clumped Platelets Not Reportable 05/11/19 02:10 Plt Clumps, EDTA Not Reportable 05/11/19 02:10 Large Platelets Not Reportable 05/11/19 02:10 Giant Platelets Not Reportable 05/11/19 02:10 Platelet Satelliting Not Reportable 05/11/19 02:10 Plt Morphology Comment Not Reportable 05/11/19 02:10 RBC Morphology Normal 05/11/19 02:10 Dimorphic RBCs Not Reportable 05/11/19 02:10 Polychromasia Not Reportable 05/11/19 02:10 Hypochromasia Not Reportable 05/11/19 02:10 Poikilocytosis Not Reportable 05/11/19 02:10 Anisocytosis Not Reportable 05/11/19 02:10 Microcytosis Not Reportable 05/11/19 02:10 Macrocytosis Not Reportable 05/11/19 02:10 Spherocytes Not Reportable 05/11/19 02:10 Pappenheimer Bodies Not Reportable 05/11/19 02:10 Sickle Cells Not Reportable 05/11/19 02:10 Target Cells Not Reportable 05/11/19 02:10 Tear Drop Cells Not Reportable 05/11/19 02:10 Ovalocytes Not Reportable 05/11/19 02:10 Helmet Cells Not Reportable 05/11/19 02:10 [place] [employer] Bodies Not Reportable 05/11/19 02:10 [place] Rings Not Reportable 05/11/19 02:10 [place] Cells Not Reportable 05/11/19 02:10 Bite Cells Not Reportable 05/11/19 02:10 Crenated Cell Not Reportable 05/11/19 02:10 Elliptocytes Not Reportable 05/11/19 02:10 Acanthocytes (Spur) Not Reportable 05/11/19 02:10 Rouleaux Not Reportable 05/11/19 02:10 Hemoglobin C Crystals Not Reportable 05/11/19 02:10 Schistocytes Not Reportable 05/11/19 02:10 Malaria parasites Not Reportable 05/11/19 02:10 [place] Bodies Not Reportable 05/11/19 02:10 Hem Pathologist Commnt No 05/11/19 02:10 D-Dimer 324.12 ng/mlDDU (0-234) H 05/10/19 14:25 POC ABG pH 7.454 (7.35-7.45) H 05/12/19 13:07 POC ABG pCO2 48.6 (35-45) H 05/12/19 13:07 POC ABG pO2 71 (80-105) L 05/12/19 13:07 POC ABG HCO3 34.1 (22-26 mml/L) 05/12/19 13:07 POC ABG Total CO2 36 (23-27mmol/L) 05/12/19 13:07 POC ABG O2 Sat 94 05/12/19 13:07 POC ABG Base Excess 10 ((-2) - (+3)mmol/L) 05/12/19 13:07 FiO2 36 % 05/12/19 13:07 Sodium 142 mmol/L (137-145) 05/11/19 02:10 Potassium 3.9 mmol/L (3.6-5.0) 05/11/19 02:10 Chloride 98.8 mmol/L (98-107) 05/11/19 02:10 Carbon Dioxide 28 mmol/L (22-30) 05/11/19 02:10 Anion Gap 19 mmol/L 05/11/19 02:10 BUN 15 mg/dL (7-17) 05/11/19 02:10 Creatinine 0.8 mg/dL (0.7-1.2) 05/11/19 02:10 Estimated GFR > 60 ml/min 05/11/19 02:10 BUN/Creatinine Ratio 19 % 05/11/19 02:10 Glucose 209 mg/dL (65-100) H 05/11/19 02:10 POC Glucose 115 (70-105) H 05/13/19 11:33 Hemoglobin A1c 5.2 % (4-6) 05/12/19 05:28 Lactic Acid 0.70 mmol/L (0.7-2.0) 05/10/19 19:32 Calcium 8.7 mg/dL (8.4-10.2) 05/11/19 02:10 Total Creatine Kinase 207 units/L (30-135) H 05/11/19 04:54 CK-MB (CK-2) 13.6 ng/mL (0.0-4.0) H 05/11/19 04:54 CK-MB (CK-2) Rel Index 6.5 (0-4) H 05/11/19 04:54 Troponin T 0.036 ng/mL (0.00-0.029) H D 05/11/19 04:54 NT-Pro-B Natriuret Pep 476.1 pg/mL (0-900) 05/10/19 19:12 Triglycerides 82 mg/dL (2-149) 05/10/19 14:25 Cholesterol 200 mg/dL (50-199) H 05/10/19 14:25 LDL Cholesterol Direct 111 mg/dL (50-130) 05/10/19 14:25 HDL Cholesterol 94 mg/dL (40-59) H 05/10/19 14:25 Cholesterol/HDL Ratio 2.12 % 05/10/19 14:25 Active Medications - Current Medications Current Medications: Generic Name Dose Route Start Last Admin Trade Name Freq PRN Reason Stop Dose Admin Acetaminophen 650 mg 05/10/19 23:19 Tylenol PO Q4H PRN Pain MILD(1-3)/Fever >100.5/OCHOA Albuterol 2.5 mg 05/11/19 11:44 Proventil IH Q2HRT PRN Shortness Of Breath Albuterol/Ipratropium 1 ampul 05/11/19 13:00 05/13/19 12:51 Duoneb *Not For Prn Use* IH 1 ampul Q4HRT BISMARK Administration Alprazolam 0.25 mg 05/12/19 11:04 Xanax PO Q8H PRN Anxiety Amlodipine Besylate 5 mg 05/12/19 12:00 05/13/19 10:15 Amlodipine PO 5 mg QDAY BISMARK Administration Budesonide 0.5 mg 05/11/19 20:00 05/13/19 08:00 Pulmicort IH 0.5 mg Q12HRT BISMARK Administration Dextrose 50 ml 05/11/19 09:24 D50w (25gm) Syringe IV Q30MIN PRN Hypoglycemia Protocol Guaifenesin 600 mg 05/12/19 12:00 05/13/19 10:16 Mucinex Er PO 600 mg BID BISMARK Administration Azithromycin 500 mg/ Sodium 250 mls @ 250 mls/hr 05/11/19 10:00 05/13/19 15:29 Chloride IV 250 mls/hr Q24H BISMARK Administration Protocol Insulin Human Lispro 0 unit 05/11/19 11:30 05/13/19 12:25 Humalog SUB-Q Not Given ACHS BISMARK Protocol Methylprednisolone Sodium Succinate 80 mg 05/12/19 12:00 05/13/19 15:29 Solu-Medrol IV 80 mg Q6H BISMARK Administration Ondansetron HCl 4 mg 05/10/19 23:19 Zofran IV Q8H PRN Nausea And Vomiting Sodium Chloride 10 ml 05/11/19 10:00 05/13/19 15:29 Sodium Chloride Flush Syringe 10 Ml IV 10 ml BID BISMARK Administration Sodium Chloride 10 ml 05/10/19 23:19 Sodium Chloride Flush Syringe 10 Ml IV PRN PRN LINE FLUSH
--- NOTE | 2019-05-13 17:51 | Progress Note ---
Assessment and Plan Imp: 1. Centrilobular emphysema 2. COPD exac. 3. Acute bronchitis 4. A/C respiratory failure, hypoxia 5. Chronic respiratory failure, hypercapnea 6. Pulm nodule 7. Cachexia Rec: 1. Cont. Zithromax; if continued diarrhea consider checking C.diff versus add Flagyl empirically 2. Cont. Solumedrol, Duonebs; needs a long Prednisone taper at d/c 3. Nodule enlarging; risk of PTX with CT guided biopsy is basically 100%; poor candidate for surgical work-up; only option would be possible SBRT as an outpatient without a tissue diagnosis 4. Further plans pending clinical course Plan of care reviewed w/ patient, she understands/agrees Subjective Date of service: 05/13/19 Principal diagnosis: COPD Interval history: No events. SOB, wheezing, cough unchanged. On nasal cannula. Having diarrhea today. Active Medications Acetaminophen (Tylenol) 650 mg PO Q4H PRN PRN Reason: Pain MILD(1-3)/Fever >100.5/OCHOA Albuterol (Proventil) 2.5 mg IH Q2HRT PRN PRN Reason: Shortness Of Breath Albuterol/Ipratropium (Duoneb *Not For Prn Use*) 1 ampul IH Q4HRT [facility] Last Admin: 05/13/19 12:51 Dose: 1 ampul Documented by: Alprazolam (Xanax) 0.25 mg PO Q8H PRN PRN Reason: Anxiety Amlodipine Besylate (Amlodipine) 5 mg PO QDAY [facility] Last Admin: 05/13/19 10:15 Dose: 5 mg Documented by: Budesonide (Pulmicort) 0.5 mg IH Q12HRT [facility] Last Admin: 05/13/19 08:00 Dose: 0.5 mg Documented by: Dextrose (D50w (25gm) Syringe) 50 ml IV Q30MIN PRN; Protocol PRN Reason: Hypoglycemia Guaifenesin (Mucinex Er) 600 mg PO BID [facility] Last Admin: 05/13/19 10:16 Dose: 600 mg Documented by: Azithromycin 500 mg/ Sodium (Chloride) 250 mls @ 250 mls/hr IV Q24H [facility]; Protocol Last Admin: 05/13/19 15:29 Dose: 250 mls/hr Documented by: Insulin Human Lispro (Humalog) 0 unit SUB-Q ACHS [facility]; Protocol Last Admin: 05/13/19 12:25 Dose: Not Given Documented by: Methylprednisolone Sodium Succinate (Solu-Medrol) 80 mg IV Q6H [facility] Last Admin: 05/13/19 15:29 Dose: 80 mg Documented by: Ondansetron HCl (Zofran) 4 mg IV Q8H PRN PRN Reason: Nausea And Vomiting Sodium Chloride (Sodium Chloride Flush Syringe 10 Ml) 10 ml IV BID [facility] Last Admin: 05/13/19 15:29 Dose: 10 ml Documented by: Sodium Chloride (Sodium Chloride Flush Syringe 10 Ml) 10 ml IV PRN PRN PRN Reason: LINE FLUSH Objective Vital Signs - 12hr 05/13/19 05/13/19 05/13/19 07:30 07:41 08:06 Temperature 97.5 F L Pulse Rate 103 H 105 H Pulse Rate [ 101 H Bilateral Throughout] Respiratory 22 Rate Respiratory 21 Rate [Bilateral Throughout] Blood Pressure Blood Pressure 139/63 [Left] O2 Sat by Pulse 95 96 Oximetry 05/13/19 05/13/19 05/13/19 10:14 10:15 13:03 Temperature Pulse Rate 98 H 98 H Pulse Rate [ 119 H Bilateral Throughout] Respiratory Rate Respiratory 14 Rate [Bilateral Throughout] Blood Pressure 134/79 134/79 Blood Pressure [Left] O2 Sat by Pulse 97 Oximetry Constitutional: alert, appears uncomfortable, other (cachectic) Eyes: non-icteric ENT: oropharynx moist Neck: supple Effort: mildly labored Ascultation: Bilateral: diminished breath sounds, wheezes Percussion: Bilateral: not dull Cardiovascular: regular rate and rhythm (no mrg) Gastrointestinal: normoactive bowel sounds, soft, non-tender, non-distended Integumentary: normal Extremities: no cyanosis, no edema, pink and warm Neurologic: normal mental status, non-focal exam, CN II-XII normal Psychiatric: mood appropriate, affect normal CBC and BMP: 05/11/19 02:10 05/11/19 02:10 ABG, PT/INR, D-dimer: ABG POC ABG pH 7.454 (7.35-7.45) H 05/12/19 13:07 POC ABG pCO2 48.6 (35-45) H 05/12/19 13:07 POC ABG pO2 71 (80-105) L 05/12/19 13:07 POC ABG HCO3 34.1 (22-26 mml/L) 05/12/19 13:07 POC ABG Total CO2 36 (23-27mmol/L) 05/12/19 13:07 POC ABG O2 Sat 94 05/12/19 13:07 PT/INR, D-dimer D-Dimer 324.12 ng/mlDDU (0-234) H 05/10/19 14:25 Abnormal lab findings: Abnormal Labs 05/10/19 05/10/19 05/10/19 14:25 14:25 14:25 RDW [place] % (Auto) 10.1 H Seg Neuts % (Manual) Lymphocytes % (Manual) Lymphocytes # (Manual) D-Dimer 324.12 H POC ABG pH POC ABG pCO2 POC ABG pO2 Glucose POC Glucose Total Creatine Kinase 196 H CK-MB (CK-2) 14.0 H CK-MB (CK-2) Rel Index 7.1 H Troponin T 0.071 H Cholesterol 200 H HDL Cholesterol 94 H 05/11/19 05/11/19 05/11/19 01:27 02:10 02:10 RDW 13.1 L [place] % (Auto) Seg Neuts % (Manual) 86.0 H Lymphocytes % (Manual) 5.0 L Lymphocytes # (Manual) 0.2 L D-Dimer POC ABG pH POC ABG pCO2 POC ABG pO2 Glucose 209 H POC Glucose Total Creatine Kinase 198 H CK-MB (CK-2) 12.8 H CK-MB (CK-2) Rel Index 6.4 H Troponin T 0.049 H D Cholesterol HDL Cholesterol 05/11/19 05/11/19 05/11/19 04:54 07:24 16:45 RDW [place] % (Auto) Seg Neuts % (Manual) Lymphocytes % (Manual) Lymphocytes # (Manual) D-Dimer POC ABG pH POC ABG pCO2 POC ABG pO2 Glucose POC Glucose 124 H 178 H Total Creatine Kinase 207 H CK-MB (CK-2) 13.6 H CK-MB (CK-2) Rel Index 6.5 H Troponin T 0.036 H D Cholesterol HDL Cholesterol 05/11/19 05/12/19 05/12/19 21:46 07:44 11:28 RDW [place] % (Auto) Seg Neuts % (Manual) Lymphocytes % (Manual) Lymphocytes # (Manual) D-Dimer POC ABG pH POC ABG pCO2 POC ABG pO2 Glucose POC Glucose 115 H 139 H 144 H Total Creatine Kinase CK-MB (CK-2) CK-MB (CK-2) Rel Index Troponin T Cholesterol HDL Cholesterol 05/12/19 05/12/19 05/12/19 13:07 17:05 22:04 RDW [place] % (Auto) Seg Neuts % (Manual) Lymphocytes % (Manual) Lymphocytes # (Manual) D-Dimer POC ABG pH 7.454 H POC ABG pCO2 48.6 H POC ABG pO2 71 L Glucose POC Glucose 252 H 175 H Total Creatine Kinase CK-MB (CK-2) CK-MB (CK-2) Rel Index Troponin T Cholesterol HDL Cholesterol 05/13/19 05/13/19 05/13/19 07:50 11:33 16:48 RDW [place] % (Auto) Seg Neuts % (Manual) Lymphocytes % (Manual) Lymphocytes # (Manual) D-Dimer POC ABG pH POC ABG pCO2 POC ABG pO2 Glucose POC Glucose 118 H 115 H 113 H Total Creatine Kinase CK-MB (CK-2) CK-MB (CK-2) Rel Index Troponin T Cholesterol HDL Cholesterol Chest x-ray: report reviewed, image reviewed CT scan - chest: report reviewed, image reviewed
[2019-05-14] MEDS: IPRATROPIUM/ALBUTEROL SULFATE 3 ML AMPUL.NEB IH SCH ×6 (00:12→15:54)
[2019-05-14] MEDS: methylPREDNISolone Sod Succinate 125 MG/2 ML INJ IV SCH ×4 (00:25→17:52)
[2019-05-14] MEDS: BUDESONIDE 0.5 MG/2 ML NEBU IH SCH (07:25)
[2019-05-14] MEDS: INSULIN LISPRO 100 UNIT/ML SUB-Q SCH ×3 (07:41→17:13)
[2019-05-14] MEDS: guaiFENesin ER 600 MG TAB PO SCH (09:57)
[2019-05-14] MEDS: amLODIPine 5 MG TAB PO SCH (09:58)
[2019-05-14 13:20] VITALS: BP 126/72
--- NOTE | 2019-05-14 14:03 | Discharge Summary ---
Providers - Providers Date of Admission: 05/11/19 11:31 Attending physician: MORIS ISLAS MD 05/10/19 23:19 Consult to Physician [CONS] Routine Comment: Consulting Provider: MECHELLE LOREDO Physician Instructions: Reason For Exam: copd/lung mass 05/12/19 11:14 Physical Therapy Evaluation and Treat [CONS] Routine Comment: Reason For Exam: deconditioning Primary care physician: TINSEL MACHINE [employer]PERATOR Hospitalization Condition: Stable Hospital course: 83-year-old woman with a history of COPD, lung mass comes emergency room with complaints of shortness of breath not relieved with her nebulizer treatments. She complains of cough productive of white phlegm, no fever, chills PAST MEDICAL HISTORY: COPD, lung mass HTN -stable -home amlodipine resumed She had diarrhea in the hospital which was most likely due to a side effect of azithromycin. CD4 is negative. And diarrhea resolved with no specific intervention. Acute severe COPD exacerbation She was treated with IV steroids, antibiotic, duonebs and pulmicort -She improved and was discharged home with steroid taper Enlarging RT UL nodule per imaging Per pulmonology "risk of PTX with CT guided biopsy is basically 100%; poor candidate for surgical work-up; only option would be possible SBRT as an outpatient without a tissue diagnosis" -Therefore outpatient follow-up Acute on chronic respiratory failure with hypoxia -Continue oxygen supplementation as needed and duonebs SIRS due to noninfectious cause with organ failure -will monitor Abnormal cardiac enzymes, asymptomatic -No acute chest pain -Likely secondary to demand ischemia due to the severe COPD -Echocardiogram showed EF of 55-60% with diastolic dysf without wall motion abns Thoracic aneurysm (3.7 cm) per imaging --Patient notified of the finding -For outpatient follow-up Hyperglycemia -secondary to steroid use -on SSI -hba1c:5.2 DVT ppx: Lovenox Disposition: DC-50 TO HOSPICE (HOME) Time spent for discharge: 35 minutes Core Measure Documentation - Palliative Care Palliative Care/ Comfort Measures: Hospice Care - Core Measures Any of the following diagnoses?: none Exam - Physical Exam Narrative exam: General.: Cachectic, appears chronically ill HEENT: Moist mucous membranes, extraocular muscles intact, no lymphadenopathy Neck: supple Cardiac: S1-S2 heard Lungs: Decreased air entry Abdomen: soft , nontender, nondistended, bowel sounds positive Extremities: no edema clubbing or cyanosis Skin: no rash or lesions Neurologic: no gross focal deficits Psych: calm, and cooperative - Constitutional Vitals: Temp Pulse Resp BP Pulse Ox 97.6 F 111 H 22 126/72 96 05/14/19 13:01 05/14/19 13:01 05/14/19 13:01 05/14/19 13:01 05/14/19 13:01 Plan Follow up with: PRIMARY CARE, [Primary Care Provider] - 3-5 Days Prescriptions: predniSONE [Deltasone] 10 mg PO .TAPER #48 tab
--- NOTE | 2019-05-14 15:01 | Progress Note ---
Assessment and Plan Imp: 1. Centrilobular emphysema 2. COPD exac. 3. Acute bronchitis 4. A/C respiratory failure, hypoxia 5. Chronic respiratory failure, hypercapnea 6. Pulm nodule 7. Cachexia Rec: 1. Would complete 5 days of Zithromax; if continued diarrhea consider probiotics or Flagyl empirically 2. Cont. Solumedrol, Duonebs; needs a long Prednisone taper at d/c 3. Nodule enlarging; risk of PTX with CT guided biopsy is basically 100%; poor candidate for surgical work-up; only option would be possible SBRT as an outpatient without a tissue diagnosis 4. Must see Dr. Gonzalez again 1 week after d/c, patient expresses understanding Plan of care reviewed w/ patient, she understands/agrees Subjective Date of service: 05/14/19 Principal diagnosis: COPD Interval history: No events. SOB, wheezing, cough better today. On nasal cannula. Diarrhea resolved. Active Medications Acetaminophen (Tylenol) 650 mg PO Q4H PRN PRN Reason: Pain MILD(1-3)/Fever >100.5/OCHOA Albuterol (Proventil) 2.5 mg IH Q2HRT PRN PRN Reason: Shortness Of Breath Albuterol/Ipratropium (Duoneb *Not For Prn Use*) 1 ampul IH Q4HRT [facility] Last Admin: 05/14/19 11:09 Dose: 1 ampul Documented by: Alprazolam (Xanax) 0.25 mg PO Q8H PRN PRN Reason: Anxiety Amlodipine Besylate (Amlodipine) 5 mg PO QDAY [facility] Last Admin: 05/14/19 09:58 Dose: 5 mg Documented by: Budesonide (Pulmicort) 0.5 mg IH Q12HRT [facility] Last Admin: 05/14/19 07:25 Dose: 0.5 mg Documented by: Dextrose (D50w (25gm) Syringe) 50 ml IV Q30MIN PRN; Protocol PRN Reason: Hypoglycemia Guaifenesin (Mucinex Er) 600 mg PO BID [facility] Last Admin: 05/14/19 09:57 Dose: 600 mg Documented by: Insulin Human Lispro (Humalog) 0 unit SUB-Q ACHS [facility]; Protocol Last Admin: 05/14/19 11:34 Dose: Not Given Documented by: Methylprednisolone Sodium Succinate (Solu-Medrol) 80 mg IV Q6H [facility] Last Admin: 05/14/19 12:38 Dose: 80 mg Documented by: Ondansetron HCl (Zofran) 4 mg IV Q8H PRN PRN Reason: Nausea And Vomiting Sodium Chloride (Sodium Chloride Flush Syringe 10 Ml) 10 ml IV BID [facility] Last Admin: 05/14/19 09:58 Dose: 10 ml Documented by: Sodium Chloride (Sodium Chloride Flush Syringe 10 Ml) 10 ml IV PRN PRN PRN Reason: LINE FLUSH Objective Vital Signs - 12hr 05/14/19 05/14/19 05/14/19 07:23 07:25 07:26 Temperature 97.7 F Pulse Rate 96 H Pulse Rate [ 106 H Bilateral Throughout] Respiratory 22 Rate Respiratory 20 Rate [Bilateral Throughout] Blood Pressure 131/83 O2 Sat by Pulse 92 95 Oximetry 05/14/19 05/14/19 05/14/19 09:58 10:00 13:01 Temperature 97.6 F Pulse Rate 101 H 114 H 111 H Pulse Rate [ Bilateral Throughout] Respiratory 22 Rate Respiratory Rate [Bilateral Throughout] Blood Pressure 123/71 126/72 O2 Sat by Pulse 96 Oximetry Constitutional: no acute distress, alert, other (cachectic) Eyes: non-icteric ENT: oropharynx moist Neck: supple Effort: normal Ascultation: Bilateral: diminished breath sounds, wheezes Percussion: Bilateral: not dull Cardiovascular: regular rate and rhythm (no mrg) Gastrointestinal: normoactive bowel sounds, soft, non-tender, non-distended Integumentary: normal Extremities: no cyanosis, no edema, pink and warm Neurologic: normal mental status, non-focal exam, CN II-XII normal Psychiatric: mood appropriate, affect normal CBC and BMP: 05/11/19 02:10 05/11/19 02:10 ABG, PT/INR, D-dimer: ABG POC ABG pH 7.454 (7.35-7.45) H 05/12/19 13:07 POC ABG pCO2 48.6 (35-45) H 05/12/19 13:07 POC ABG pO2 71 (80-105) L 05/12/19 13:07 POC ABG HCO3 34.1 (22-26 mml/L) 05/12/19 13:07 POC ABG Total CO2 36 (23-27mmol/L) 05/12/19 13:07 POC ABG O2 Sat 94 05/12/19 13:07 PT/INR, D-dimer D-Dimer 324.12 ng/mlDDU (0-234) H 05/10/19 14:25 Abnormal lab findings: Abnormal Labs 05/10/19 05/10/19 05/10/19 14:25 14:25 14:25 RDW [place] % (Auto) 10.1 H Seg Neuts % (Manual) Lymphocytes % (Manual) Lymphocytes # (Manual) D-Dimer 324.12 H POC ABG pH POC ABG pCO2 POC ABG pO2 Glucose POC Glucose Total Creatine Kinase 196 H CK-MB (CK-2) 14.0 H CK-MB (CK-2) Rel Index 7.1 H Troponin T 0.071 H Cholesterol 200 H HDL Cholesterol 94 H 05/11/19 05/11/19 05/11/19 01:27 02:10 02:10 RDW 13.1 L [place] % (Auto) Seg Neuts % (Manual) 86.0 H Lymphocytes % (Manual) 5.0 L Lymphocytes # (Manual) 0.2 L D-Dimer POC ABG pH POC ABG pCO2 POC ABG pO2 Glucose 209 H POC Glucose Total Creatine Kinase 198 H CK-MB (CK-2) 12.8 H CK-MB (CK-2) Rel Index 6.4 H Troponin T 0.049 H D Cholesterol HDL Cholesterol 05/11/19 05/11/19 05/11/19 04:54 07:24 16:45 RDW [place] % (Auto) Seg Neuts % (Manual) Lymphocytes % (Manual) Lymphocytes # (Manual) D-Dimer POC ABG pH POC ABG pCO2 POC ABG pO2 Glucose POC Glucose 124 H 178 H Total Creatine Kinase 207 H CK-MB (CK-2) 13.6 H CK-MB (CK-2) Rel Index 6.5 H Troponin T 0.036 H D Cholesterol HDL Cholesterol 05/11/19 05/12/19 05/12/19 21:46 07:44 11:28 RDW [place] % (Auto) Seg Neuts % (Manual) Lymphocytes % (Manual) Lymphocytes # (Manual) D-Dimer POC ABG pH POC ABG pCO2 POC ABG pO2 Glucose POC Glucose 115 H 139 H 144 H Total Creatine Kinase CK-MB (CK-2) CK-MB (CK-2) Rel Index Troponin T Cholesterol HDL Cholesterol 05/12/19 05/12/19 05/12/19 13:07 17:05 22:04 RDW [place] % (Auto) Seg Neuts % (Manual) Lymphocytes % (Manual) Lymphocytes # (Manual) D-Dimer POC ABG pH 7.454 H POC ABG pCO2 48.6 H POC ABG pO2 71 L Glucose POC Glucose 252 H 175 H Total Creatine Kinase CK-MB (CK-2) CK-MB (CK-2) Rel Index Troponin T Cholesterol HDL Cholesterol 05/13/19 05/13/19 05/13/19 07:50 11:33 16:48 RDW [place] % (Auto) Seg Neuts % (Manual) Lymphocytes % (Manual) Lymphocytes # (Manual) D-Dimer POC ABG pH POC ABG pCO2 POC ABG pO2 Glucose POC Glucose 118 H 115 H 113 H Total Creatine Kinase CK-MB (CK-2) CK-MB (CK-2) Rel Index Troponin T Cholesterol HDL Cholesterol 05/13/19 05/14/19 05/14/19 21:24 07:19 11:19 RDW [place] % (Auto) Seg Neuts % (Manual) Lymphocytes % (Manual) Lymphocytes # (Manual) D-Dimer POC ABG pH POC ABG pCO2 POC ABG pO2 Glucose POC Glucose 147 H 134 H 135 H Total Creatine Kinase CK-MB (CK-2) CK-MB (CK-2) Rel Index Troponin T Cholesterol HDL Cholesterol Chest x-ray: report reviewed, image reviewed CT scan - chest: report reviewed, image reviewed
== END 2019-05-14 18:40 | disposition hospice, home (50) | DRG 189 ==
LOC: ED 13:42 → 2B-ACE 22:25 → INTOOBSV 22:25 → OBSVTOIN 05-11 11:31
PROVIDERS: ADMIT Internal Medicine; ATTEND Internal Medicine
PROC: 4A033R1 Measurement of Arterial Saturation, Peripheral, Percutaneous Approach (ICD-10-PCS; principal; 2019-05-12)
DX: J96.21 Acute and chronic respiratory failure with hypoxia (principal); R65.11 Systemic inflammatory response syndrome (SIRS) of non-infectious origin with acute organ dysfunction; R64 Cachexia; Z68.1 Body mass index [BMI] 19.9 or less, adult; J43.2 Centrilobular emphysema; J96.22 Acute and chronic respiratory failure with hypercapnia; I71.2 Thoracic aortic aneurysm, without rupture; R73.9 Hyperglycemia, unspecified; R91.1 Solitary pulmonary nodule; J20.9 Acute bronchitis, unspecified; I10 Essential (primary) hypertension; Z99.81 Dependence on supplemental oxygen; Z79.51 Long term (current) use of inhaled steroids; Z87.891 Personal history of nicotine dependence; Z90.49 Acquired absence of other specified parts of digestive tract; Z82.49 Family history of ischemic heart disease and other diseases of the circulatory system; Z79.899 Other long term (current) drug therapy
CPT/HCPCS: 36415; 36600; 71046; 71275; 80048; 80061; 82140; 82550; 82553; 82803; 82962; 83036; 83880; 84484; 85007; 85025; 85379; 87040; 93005; 93010; 93306; 94640; 94644; 94760; 96365; 96367; 96372; 96375; G0378; J0456; J0696; J1650; J1815; J2930; J7040; J7050; Q9967

== ENCOUNTER 2019-07-01 18:12 | Inpatient (IN) | payer MEDICARE ==
[2019-07-01] MEDS ORDERED: ALBUTEROL 2.5 MG/3 ML NEBU IH ONE (18:29)
[2019-07-01] MEDS ORDERED: IPRATROPIUM 0.02% NEBU 2.5 ML IH ONE (18:29)
--- NOTE | 2019-07-01 18:40 | Emergency Department Report ---
ED General Adult HPI - General Chief complaint: Dyspnea/Respdistress Stated complaint: CRYSTAL Time Seen by Provider: 07/01/19 18:28 Source: EMS Mode of arrival: Ambulatory Limitations: No Limitations - History of Present Illness Initial comments: Patient presents to the emergency department with a chief complaint of shortness of breath. She states she has COPD and for the last couple days has had difficulty breathing. The patient wears 6 L nasal cannula at home. Per EMS upon arrival the patient's O2 sats was 71%. The patient received 5 mg albuterol treatment, Solu-Medrol, IV magnesium prior to arrival. She denies any chest pain, headache, abdominal pain. -: Gradual Severity scale (0 -10): 0 Consistency: constant Improves with: none Worsens with: none Associated Symptoms: denies other symptoms Treatments Prior to Arrival: none - Related Data Previous Rx's Medication Instructions Recorded Last Taken Type Combivent Inhaler 1 inhalation IH BID 30 Days 04/09/18 Unknown Rx Albuterol Sulfate [Ventolin HFA] 2 puff IH Q4H PRN #1 pump 04/10/18 Unknown Rx amLODIPine 5 mg PO QDAY #30 tablet 04/10/18 Unknown Rx ALBUTEROL NEB's [Proventil 0.083% 2.5 mg IH TID PRN #90 neb 10/18/18 Unknown Rx NEBS] ALPRAZolam [Xanax TAB] 0.25 mg PO Q8H PRN #14 tablet 10/18/18 Unknown Rx Fluticasone/Salmeterol [Advair 1 each IH BID #1 blst.w.dev 10/18/18 Unknown Rx 500-50 Diskus] Tiotropium [place] [Spiriva 1 each IH DAILY #1 mist.inhal 10/18/18 Unknown Rx Respimat] predniSONE [Deltasone] 10 mg PO .TAPER #48 tab 05/14/19 Unknown Rx Allergies Allergy/AdvReac Type Severity Reaction Status Date / Time No Known Allergies Allergy Verified 05/10/19 13:57 ED Review of Systems ROS: Stated complaint: CRYSTAL Other details as noted in HPI Constitutional: denies: chills, fever Eyes: denies: eye pain, eye discharge, vision change ENT: denies: ear pain, throat pain Respiratory: denies: cough, shortness of breath, wheezing Cardiovascular: denies: chest pain, palpitations Endocrine: no symptoms reported Gastrointestinal: denies: abdominal pain, nausea, diarrhea Genitourinary: denies: urgency, dysuria, discharge Musculoskeletal: denies: back pain, joint swelling, arthralgia Skin: denies: rash, lesions Neurological: denies: headache, weakness, paresthesias Psychiatric: denies: anxiety, depression Hematological/Lymphatic: denies: easy bleeding, easy bruising ED Past Medical Hx - Past Medical History Previous Medical History?: Yes Hx Asthma: Yes Hx COPD: Yes Additional medical history: Emphusema - Surgical History Past Surgical History?: Yes Hx Appendectomy: Yes - Social History Smoking Status: Former Smoker Substance Use Type: None - Medications Home Medications: Home Medications Medication Instructions Recorded Confirmed Last Taken Type Combivent Inhaler 1 inhalation IH BID 30 Days 04/09/18 05/11/19 Unknown Rx Albuterol Sulfate [Ventolin HFA] 2 puff IH Q4H PRN #1 pump 04/10/18 05/11/19 Unknown Rx amLODIPine 5 mg PO QDAY #30 tablet 04/10/18 05/11/19 Unknown Rx ALBUTEROL NEB's [Proventil 0.083% 2.5 mg IH TID PRN #90 neb 10/18/18 05/11/19 Unknown Rx NEBS] ALPRAZolam [Xanax TAB] 0.25 mg PO Q8H PRN #14 tablet 10/18/18 05/11/19 Unknown Rx Fluticasone/Salmeterol [Advair 1 each IH BID #1 blst.w.dev 10/18/18 05/11/19 Unknown Rx 500-50 Diskus] Tiotropium [place] [Spiriva 1 each IH DAILY #1 mist.inhal 10/18/18 05/11/19 Unknown Rx Respimat] predniSONE [Deltasone] 10 mg PO .TAPER #48 tab 05/14/19 Unknown Rx ED Physical Exam - General Limitations: No Limitations General appearance: alert, in distress - Head Head exam: Present: atraumatic, normocephalic - Eye Eye exam: Present: normal appearance - ENT ENT exam: Present: mucous membranes moist - Neck Neck exam: Present: normal inspection - Respiratory Respiratory exam: Present: respiratory distress, accessory muscle use, other (this poor movement and air with end expiratory wheezing) - Cardiovascular Cardiovascular Exam: Present: normal rhythm, tachycardia. Absent: systolic murmur, diastolic murmur, rubs, gallop - GI/Abdominal GI/Abdominal exam: Present: soft, normal bowel sounds. Absent: distended, tenderness - Extremities Exam Extremities exam: Present: normal inspection - Back Exam Back exam: Present: normal inspection - Neurological Exam Neurological exam: Present: alert, oriented X3, CN II-XII intact. Absent: motor sensory deficit - Psychiatric Psychiatric exam: Present: normal affect, normal mood - Skin Skin exam: Present: warm, dry, intact, normal color. Absent: rash ED Course Vital Signs 07/01/19 07/01/19 07/01/19 18:24 18:25 19:00 Temperature 98.5 F Pulse Rate 134 H 127 H Pulse Rate [ Anterior Bilateral Throughout] Respiratory 18 23 18 Rate Respiratory Rate [Anterior Bilateral Throughout] Blood Pressure 124/84 137/68 Blood Pressure 1250/86 [Right] O2 Sat by Pulse 100 99 100 Oximetry 07/01/19 19:11 Temperature Pulse Rate Pulse Rate [ 115 H Anterior Bilateral Throughout] Respiratory Rate Respiratory 24 Rate [Anterior Bilateral Throughout] Blood Pressure Blood Pressure [Right] O2 Sat by Pulse Oximetry ED Medical Decision Making - Lab Data Result diagrams: 07/01/19 18:42 07/01/19 18:42 Lab Results 07/01/19 07/01/19 Range/Units 18:42 18:42 WBC 9.9 (4.5-11.0) K/mm3 RBC 4.02 (3.65-5.03) M/mm3 Hgb 12.4 (10.1-14.3) gm/dl Hct 36.7 (30.3-42.9) % MCV 91 (79-97) fl MCH 31 (28-32) pg MCHC 34 (30-34) % RDW 13.8 (13.2-15.2) % Plt Count 212 (140-440) K/mm3 Lymph % (Auto) 12.9 L (13.4-35.0) % [place] % (Auto) 5.2 (0.0-7.3) % Eos % (Auto) 2.3 (0.0-4.3) % Baso % (Auto) 0.6 (0.0-1.8) % Lymph # 1.3 (1.2-5.4) K/mm3 [place] # 0.5 (0.0-0.8) K/mm3 Eos # 0.2 (0.0-0.4) K/mm3 Baso # 0.1 (0.0-0.1) K/mm3 Seg Neutrophils % 79.0 H (40.0-70.0) % Seg Neutrophils # 7.8 H (1.8-7.7) K/mm3 Sodium 141 (137-145) mmol/L Potassium 3.4 L (3.6-5.0) mmol/L Chloride 95.6 L (98-107) mmol/L Carbon Dioxide 28 (22-30) mmol/L Anion Gap 21 mmol/L BUN 11 (7-17) mg/dL Creatinine 0.7 (0.7-1.2) mg/dL Estimated GFR > 60 ml/min BUN/Creatinine Ratio 16 % Glucose 151 H (65-100) mg/dL Calcium 9.2 (8.4-10.2) mg/dL Total Bilirubin 0.70 (0.1-1.2) mg/dL AST 26 (5-40) units/L ALT 18 (7-56) units/L Alkaline Phosphatase 53 (35-129) units/L Troponin T 0.060 H (0.00-0.029) ng/mL NT-Pro-B Natriuret Pep 1578 H (0-900) pg/mL Total Protein 6.8 (6.3-8.2) g/dL Albumin 4.3 (3.9-5) g/dL Albumin/Globulin Ratio 1.7 % Triglycerides 79 (2-149) mg/dL Cholesterol 236 H (50-199) mg/dL LDL Cholesterol Direct 135 H (50-130) mg/dL HDL Cholesterol 98 H (40-59) mg/dL Cholesterol/HDL Ratio 2.40 % - Medical Decision Making Placed on Bipap Continuous BT done Critical Care Time: Yes Critical care time in (mins) excluding proc time.: 45 Critical care attestation.: If time is entered above; I have spent that time in minutes in the direct care of this critically ill patient, excluding procedure time. ED Disposition Clinical Impression: COPD exacerbation Disposition: OP ADMIT IP TO THIS HOSP Is pt being admited?: Yes Condition: Fair Instructions: Chronic Obstructive Pulmonary Disease (ED)
[2019-07-01 18:52] LABS: Basophils # (Auto) 0.1 K/mm3 (0.0-0.1); Basophils % (Auto) 0.6 % (0.0-1.8); Eosinophils # (Auto) 0.2 K/mm3 (0.0-0.4); Eosinophils % (Auto) 2.3 % (0.0-4.3); Hematocrit 36.7 % (30.3-42.9); Hemoglobin 12.4 gm/dl (10.1-14.3); Lymphocytes # (Auto) 1.3 K/mm3 (1.2-5.4); Lymphocytes % (Auto) 12.9 % (13.4-35.0); Mean Corpuscular HGB Conc 34 % (30-34); Mean Corpuscular Volume 91 fl (79-97); Monocytes # (Auto) 0.5 K/mm3 (0.0-0.8); Monocytes % (Auto) 5.2 % (0.0-7.3); Platelet Count 212 K/mm3 (140-440); Red Blood Count 4.02 M/mm3 (3.65-5.03); Red Cell Distribution Width 13.8 % (13.2-15.2)
[2019-07-01 19:15] LABS: Alanine Aminotransferase 18 units/L (7-56); Albumin 4.3 g/dL (3.9-5); BUN/Creatinine Ratio 16; Blood Urea Nitrogen 11 mg/dL (7-17); Calcium 9.2 mg/dL (8.4-10.2); Hemolysis Index 8
[2019-07-01 19:26] LABS: LDL Cholesterol,Direct 135 mg/dL (50-130)
[2019-07-01] MEDS ORDERED: ASPIRIN 81 MG TAB CHEW PO ONE (19:38)
[2019-07-01 19:42] LABS: HDL Cholesterol 98 mg/dL (40-59)
[2019-07-01] MEDS ORDERED: ALBUTEROL 2.5 MG/3 ML NEBU IH PRN (20:11)
[2019-07-01] MEDS ORDERED: ONDANSETRON 4 MG/2 ML INJ IV PRN (20:11)
[2019-07-01] MEDS ORDERED: ACETAMINOPHEN 325 MG TAB PO PRN (20:11)
[2019-07-01] MEDS ORDERED: POTASSIUM CHLORIDE ER 10 MEQ TAB PO ONE (20:25)
[2019-07-01] MEDS ORDERED: POTASSIUM CHLORIDE ER 20 MEQ TAB PO ONE (20:47)
--- NOTE | 2019-07-01 20:51 | XRay Report ---
CHEST 1 VIEW INDICATION: sob. COMPARISON: 2018. FINDINGS: Support devices: None. Heart: Within normal limits. Lungs/Pleura: Stable underlying COPD with increased interstitial markings diffusely. No significant i nfiltrate. Additional findings: None. IMPRESSION: Stable chest. Signer Name: Tonio Boykin MD Signed: 07/01/2019 8:47 PM Workstation Name: [id number]
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
[2019-07-01] MEDS: DOCUSATE SODIUM 100 MG CAP PO SCH (21:37)
[2019-07-02] MEDS ORDERED: HEPARIN 10,000 UNITS/10 ML VIAL IV ONE (00:53)
[2019-07-02] MEDS ORDERED: HEPARIN/ 0.45% NACL DRIP 25,000 UNIT/500 ML BAG IV SCH (01:00)
[2019-07-02] MEDS ORDERED: HEPARIN 10,000 UNITS/10 ML VIAL ONE (01:23)
[2019-07-02] MEDS ORDERED: HEPARIN/ 0.45% NACL DRIP 25,000 UNIT/500 ML BAG ONE (01:23)
[2019-07-02 01:29] LABS: Hematocrit 36.7 % (30.3-42.9); Hemoglobin 12.2 gm/dl (10.1-14.3)
[2019-07-02 01:30] LABS: INR 0.92 (0.87-1.13)
[2019-07-02 01:31] LABS: Partial Thromboplastin Time 24.7 Sec. (24.2-36.6)
[2019-07-02] MEDS ORDERED: IPRATROPIUM/ALBUTEROL SULFATE 3 ML AMPUL.NEB IH ONE ×3 (03:40→14:37)
[2019-07-02] MEDS: IPRATROPIUM/ALBUTEROL SULFATE 3 ML AMPUL.NEB IH SCH ×4 (03:40→20:48)
[2019-07-02 04:20] LABS: Hematocrit 34.9 % (30.3-42.9); Hemoglobin 11.8 gm/dl (10.1-14.3); Lymphocytes # (Auto) 0.6 K/mm3 (1.2-5.4); Lymphocytes % (Auto) 12.1 % (13.4-35.0); Mean Corpuscular HGB Conc 34 % (30-34); Mean Corpuscular Volume 90 fl (79-97); Monocytes # (Auto) 0.1 K/mm3 (0.0-0.8); Monocytes % (Auto) 2.6 % (0.0-7.3); Platelet Count 227 K/mm3 (140-440); Red Blood Count 3.88 M/mm3 (3.65-5.03); Red Cell Distribution Width 13.6 % (13.2-15.2)
[2019-07-02 04:39] LABS: BUN/Creatinine Ratio 19; Blood Urea Nitrogen 13 mg/dL (7-17); Calcium 9.5 mg/dL (8.4-10.2); Hemolysis Index 7
[2019-07-02] MEDS ORDERED: methylPREDNISolone Sod Succinate 125 MG/2 ML INJ ONE ×2 (05:59→15:15)
[2019-07-02] MEDS ORDERED: methylPREDNISolone Sod Succinate 40 MG/1 ML INJ ONE (06:01)
[2019-07-02] MEDS: methylPREDNISolone Sod Succinate 40 MG/1 ML INJ IV SCH ×3 (06:04→22:41)
[2019-07-02] MEDS ORDERED: BUDESONIDE 0.5 MG/2 ML NEBU IH ONE (09:01)
[2019-07-02] MEDS: BUDESONIDE 0.5 MG/2 ML NEBU IH SCH ×2 (09:02→20:48)
--- NOTE | 2019-07-02 09:53 | Consultation ---
History of Present Illness Consult date: 07/02/19 Requesting physician: JOSE ROBERTO LOPEZ Reason for consult: COPD History of present illness: 83 y/o female with known COPD, known spiculated lung nodule who has requested no further work up nor has she followed up with Dr. Gonzalez as instructed admitted with COPD exacerbation. Past History Past Medical History: COPD (Emphysema), other (chronic respiratory failure on 6L home O2, pulmonary nodule) Past Surgical History: appendectomy Social history: other (former smoker) Family history: no significant family history Medications and Allergies Allergies Allergy/AdvReac Type Severity Reaction Status Date / Time No Known Allergies Allergy Verified 05/10/19 13:57 Home Medications Medication Instructions Recorded Confirmed Last Taken Type Combivent Inhaler 1 inhalation IH BID 30 Days 04/09/18 07/01/19 Unknown Rx Albuterol Sulfate [Ventolin HFA] 2 puff IH Q4H PRN #1 pump 04/10/18 07/01/19 Unknown Rx Active Meds: Active Medications Acetaminophen (Tylenol) 650 mg PO Q4H PRN PRN Reason: Pain MILD(1-3)/Fever >100.5/OCHOA Albuterol (Proventil) 2.5 mg IH Q3HRT PRN PRN Reason: Shortness Of Breath Albuterol/Ipratropium (Duoneb *Not For Prn Use*) 1 ampul IH Q6HRT [facility] Last Admin: 07/02/19 09:02 Dose: 1 ampul Documented by: Budesonide (Pulmicort) 0.5 mg IH Q12HRT [facility] Last Admin: 07/02/19 09:02 Dose: 0.5 mg Documented by: Docusate Sodium (Colace) 100 mg PO BID [facility] Last Admin: 07/01/19 21:37 Dose: Not Given Documented by: Heparin Sodium/Sodium Chloride (Heparin/ 0.45% Nacl-25,000 Unit/500 Ml) 25,000 unit in 500 mls @ 18 mls/hr IV TITRATE [facility]; Protocol Last Titration: 07/02/19 08:59 Dose: 850 units/hr, 17 mls/hr Documented by: Methylprednisolone Sodium Succinate (Solu-Medrol) 80 mg IV Q8HR [facility] Last Admin: 07/02/19 06:04 Dose: 80 mg Documented by: Ondansetron HCl (Zofran) 4 mg IV Q8H PRN PRN Reason: Nausea And Vomiting Sodium Chloride (Sodium Chloride Flush Syringe 10 Ml) 10 ml IV BID [facility] Last Admin: 07/01/19 21:38 Dose: 10 ml Documented by: Sodium Chloride (Sodium Chloride Flush Syringe 10 Ml) 10 ml IV PRN PRN PRN Reason: LINE FLUSH Physical Examination Vital signs: Vital Signs Temp Pulse Resp BP Pulse Ox 98.5 F 134 H 18 1250/86 95 07/01/19 18:24 07/01/19 18:24 07/01/19 18:24 07/01/19 18:24 07/01/19 18:24 Results - Laboratory Findings CBC and BMP: 07/02/19 03:56 07/02/19 03:56 PT/INR, D-dimer PT 12.4 Sec. (12.2-14.9) 07/02/19 01:04 INR 0.92 (0.87-1.13) 07/02/19 01:04 Abnormal lab findings: Abnormal Labs 07/01/19 07/01/19 07/01/19 18:42 18:42 20:11 Lymph % (Auto) 12.9 L Lymph # Seg Neutrophils % 79.0 H Seg Neutrophils # 7.8 H Heparin Anti-Xa Level Potassium 3.4 L Chloride 95.6 L Glucose 151 H Troponin T 0.060 H 0.104 H* D NT-Pro-B Natriuret Pep 1578 H Cholesterol 236 H LDL Cholesterol Direct 135 H HDL Cholesterol 98 H 07/01/19 07/02/19 07/02/19 23:34 03:56 03:56 Lymph % (Auto) 12.1 L Lymph # 0.6 L Seg Neutrophils % 85.3 H Seg Neutrophils # Heparin Anti-Xa Level Potassium Chloride 96.3 L Glucose 153 H Troponin T 0.146 H* D NT-Pro-B Natriuret Pep Cholesterol LDL Cholesterol Direct HDL Cholesterol 07/02/19 07:31 Lymph % (Auto) Lymph # Seg Neutrophils % Seg Neutrophils # Heparin Anti-Xa Level 0.90 H Potassium Chloride Glucose Troponin T NT-Pro-B Natriuret Pep Cholesterol LDL Cholesterol Direct HDL Cholesterol Assessment and Plan 83 y/o female with COPD exacerbation 1. Will change steroids to 60q6 2. Agree with [facility] pulmicort and scheduled duonebs 3. Will discuss with patient options that may be better for her.
[2019-07-02] MEDS ORDERED: DOCUSATE SODIUM 100 MG CAP ONE (10:44)
[2019-07-02] MEDS: DOCUSATE SODIUM 100 MG CAP PO SCH ×2 (10:58→22:42)
[2019-07-02] MEDS ORDERED: SODIUM CHLORIDE 0.9% 500 ML 500 ML IV SCH (12:00)
--- NOTE | 2019-07-02 14:39 | Consultation ---
History of Present Illness Consult date: 07/02/19 Requesting physician: FABIANO OLSEN Consult reason: elevated troponin History of present illness: The pt is an 83-year-old female with a past medical history of COPD, chronic respiratory failure requiring home O2, pulmonary nodules, former tobacco use (reportedly quit smoking 10 years ago). She is previously unknown to our practice. She does not regularly see doctors. She presented with c/o progressively worsening SOB for the past several days. She is quite agitated on evaluation because she has not been assigned to a "real room" yet and has not been able to shower and thus will not provide any additional details regarding HPI. Per the chart, she called EMS for transport to [facility]. Upon EMS arrival patient was found to be hypoxic with saturation of 71% on 6 L nasal cannula. Patient was transported to our facility for further evaluation and treatment. Cardiology has been consulted for elevated troponin. She denies any chest pain, palpitations, n/v, diaphoresis, dizziness or syncope. Echo done 04/2019 showed EF 55-60%, trace TR, mod (mean gradient 33mmHg, peak gradient 46mmHg, FRANCISCO Vmax 0.95cm, FRANCISCO VTI 1.1cm), trace AR, impaired relaxation. Past History Past Medical History: COPD (Emphysema), other (chronic respiratory failure on 6L home O2, pulmonary nodule) Past Surgical History: appendectomy Social history: other (former smoker) Family history: no significant family history Medications and Allergies Allergies Allergy/AdvReac Type Severity Reaction Status Date / Time No Known Allergies Allergy Verified 05/10/19 13:57 Home Medications Medication Instructions Recorded Confirmed Last Taken Type Combivent Inhaler 1 inhalation IH BID 30 Days 04/09/18 07/01/19 Unknown Rx Albuterol Sulfate [Ventolin HFA] 2 puff IH Q4H PRN #1 pump 04/10/18 07/01/19 Unknown Rx Active Meds: Active Medications Acetaminophen (Tylenol) 650 mg PO Q4H PRN PRN Reason: Pain MILD(1-3)/Fever >100.5/OCHOA Albuterol (Proventil) 2.5 mg IH Q3HRT PRN PRN Reason: Shortness Of Breath Albuterol/Ipratropium (Duoneb *Not For Prn Use*) 1 ampul IH Q6HRT [facility] Last Admin: 07/02/19 09:02 Dose: 1 ampul Documented by: Budesonide (Pulmicort) 0.5 mg IH Q12HRT [facility] Last Admin: 07/02/19 09:02 Dose: 0.5 mg Documented by: Docusate Sodium (Colace) 100 mg PO BID [facility] Last Admin: 07/02/19 10:58 Dose: 100 mg Documented by: Heparin Sodium/Sodium Chloride (Heparin/ 0.45% Nacl-25,000 Unit/500 Ml) 25,000 unit in 500 mls @ 18 mls/hr IV TITRATE [facility]; Protocol Last Titration: 07/02/19 08:59 Dose: 850 units/hr, 17 mls/hr Documented by: Sodium Chloride (Nacl 0.9% 500 Ml) 500 mls @ 50 mls/hr IV DIRECT [facility] Stop: 07/02/19 21:59 Methylprednisolone Sodium Succinate (Solu-Medrol) 80 mg IV Q8HR [facility] Last Admin: 07/02/19 06:04 Dose: 80 mg Documented by: Ondansetron HCl (Zofran) 4 mg IV Q8H PRN PRN Reason: Nausea And Vomiting Sodium Chloride (Sodium Chloride Flush Syringe 10 Ml) 10 ml IV BID [facility] Last Admin: 07/02/19 10:58 Dose: 10 ml Documented by: Sodium Chloride (Sodium Chloride Flush Syringe 10 Ml) 10 ml IV PRN PRN PRN Reason: LINE FLUSH Review of Systems Constitutional: no weight loss, no weight gain, no fever, no chills, no sweats Ears, nose, mouth and throat: no ear pain, no nose pain, no sinus pressure, no sinus pain Cardiovascular: shortness of breath, dyspnea on exertion, no chest pain, no orthopnea, no palpitations, no rapid/irregular heart beat, no edema, no syncope, no lightheadedness, no leg edema Respiratory: cough, shortness of breath, dyspnea on exertion, wheezing, no congestion, no pain on inspiration Gastrointestinal: no abdominal pain, no nausea, no vomiting, no diarrhea, no constipation, no change in bowel habits Genitourinary Female: no pelvic pain, no flank pain, no dysuria, no urinary frequency, no urgency Musculoskeletal: no neck stiffness, no neck pain, no shooting arm pain, no arm numbness/tingling, no low back pain, no shooting leg pain Integumentary: no rash, no pruritis, no redness, no sores, no wounds Neurological: no head injury, no paralysis, no weakness, no parathesias, no numbness, no tingling, no seizures, no syncope Psychiatric: no anxiety Endocrine: no cold intolerance, no heat intolerance Hematologic/Lymphatic: no easy bruising, no easy bleeding Allergic/Immunologic: no urticaria Physical Examination Vital Signs Temp Pulse Resp BP Pulse Ox 98.5 F 134 H 18 1250/86 95 07/01/19 18:24 07/01/19 18:24 07/01/19 18:24 07/01/19 18:24 07/01/19 18:24 General appearance: no acute distress HEENT: Positive: PERRL, Normocephaly, Mucus Membranes Moist Neck: Positive: neck supple, trachea midline Cardiac: Positive: Reg Rate and Rhythm, S1/S2, Systolic Murmur Lungs: Positive: Decreased Breath Sounds, Oxygen Neuro: Positive: Grossly Intact Abdomen: Negative: Tender Skin: Negative: Rash Musculoskeletal: No Pain Extremities: Absent: edema Results 07/02/19 03:56 07/02/19 03:56 Cardiac Enzymes 07/01/19 Range/Units 18:42 AST 26 (5-40) units/L Coagulation 07/02/19 Range/Units 01:04 PT 12.4 (12.2-14.9) Sec. INR 0.92 (0.87-1.13) APTT 24.7 (24.2-36.6) Sec. Lipids 07/01/19 Range/Units 18:42 Triglycerides 79 (2-149) mg/dL Cholesterol 236 H (50-199) mg/dL HDL Cholesterol 98 H (40-59) mg/dL Cholesterol/HDL Ratio 2.40 % CBC 07/01/19 07/02/19 07/02/19 Range/Units 18:42 01:04 03:56 WBC 9.9 5.1 (4.5-11.0) K/mm3 RBC 4.02 3.88 (3.65-5.03) M/mm3 Hgb 12.4 12.2 11.8 (10.1-14.3) gm/dl Hct 36.7 36.7 34.9 (30.3-42.9) % Plt Count 212 234 227 (140-440) K/mm3 Lymph # 1.3 0.6 L (1.2-5.4) K/mm3 Band[place] # 0.5 0.1 (0.0-0.8) K/mm3 Eos # 0.2 0.0 (0.0-0.4) K/mm3 Baso # 0.1 0.0 (0.0-0.1) K/mm3 Comprehensive Metabolic Panel 07/01/19 07/02/19 Range/Units 18:42 03:56 Sodium 141 141 (137-145) mmol/L Potassium 3.4 L 4.1 D (3.6-5.0) mmol/L Chloride 95.6 L 96.3 L (98-107) mmol/L Carbon Dioxide 28 30 (22-30) mmol/L BUN 11 13 (7-17) mg/dL Creatinine 0.7 0.7 (0.7-1.2) mg/dL Glucose 151 H 153 H (65-100) mg/dL Calcium 9.2 9.5 (8.4-10.2) mg/dL AST 26 (5-40) units/L ALT 18 (7-56) units/L Alkaline Phosphatase 53 (35-129) units/L Total Protein 6.8 (6.3-8.2) g/dL Albumin 4.3 (3.9-5) g/dL - Imaging and Cardiology Echo: report reviewed ( 04/2019 showed EF 55-60%, trace TR, mod (mean gradient 33mmHg, peak gradient 46mmHg, FRANCISCO Vmax 0.95cm, FRANCISCO VTI 1.1cm), trace AR, impaired relaxation. ) EKG: report reviewed, image reviewed EKG interpretations - Telemetry EKG Rhythm: Sinus Rhythm - EKG Sinus rhythms and dysrhythmias: sinus rhythm Chamber hypertrophy or enlargement: left ventricular hypertro Assessment and Plan Lazarus elevated and trending upwards. Pt denies any chest pain, ECG with no acute ischemic changes. Agree with heparin gtt. Initiate ASA and lipitor. No BB at this time in setting of COPD with acute exacerbation. Coronary angiography recommended in setting of elevated Lazarus and aortic stenosis. Indications, potential risks and benefits of LHC reviewed with pt and she is agreeable to proceed with LHC in AM. NPO after MN. Management of COPD exac and respiratory failure per pulmonary. Per pulmonary, pt has known spiculated lung nodule who has requested no further work up nor has she followed up with Dr. Gonzalez as instructed. The patient has been seen in conjunction with Dr. Nahomy Campbell who agrees with the assessment and plan of care. - Patient Problems (1) COPD exacerbation Current Visit: Yes Status: Acute (2) Acute on chronic respiratory failure Current Visit: Yes Status: Acute (3) NSTEMI (non-ST elevated myocardial infarction) Current Visit: Yes Status: Acute (4) Aortic stenosis Current Visit: Yes Status: Chronic (5) Lung nodule Current Visit: Yes Status: Acute (6) Former tobacco use Current Visit: Yes Status: Acute
--- NOTE | 2019-07-02 18:31 | Progress Note ---
Assessment and Plan Assessment and plan: 83-year-old female who is a former smoker with history of emphysema, COPD, chronic respiratory failure on home O2, pulmonary nodules who presents to [facility] ED with complaints of shortness of breath. --NSTEMI Type II -Troponin now 0.146 (trended up from 0.060 on admission) Cardiology evaluation noted and appreciated Scheduled for heart cath tomorrow Continue current management --Acute on chronic hypoxic respiratory failure on home oxygen requirements 6 L nasal cannula continuously BiPAP as needed. Titrate O2 sats to more than 90% --Acute exacerbation COPD Worsening shortness of breath Continue DuoNebs and Pulmicort, albuterol when necessary IV systemic steroids Pulmonary consulted --Hypokalemia; replenishment per protocol and monitor levels --Hx Pulmonary nodules Pulmonary evaluation inpatient versus outpatient --DVT PPX; Heparin --CODE STATUS; full code Monitor closely and adjust management as needed Plan of care is reviewed with the patient and her nurse History Interval history: Patient seen and examined medical records reviewed Admitted with shortness of breath, positive cardiac enzymes Cardiology evaluated the patient scheduled for left heart catheterization tomorrow Patient feels slightly better Denies chest pain or shortness of breath Vital signs reviewed Hospitalist Physical - Constitutional Vitals: Temp Pulse Resp BP Pulse Ox 98.7 F 111 H 19 147/86 98 07/02/19 08:37 07/02/19 14:00 07/02/19 14:00 07/02/19 17:00 07/02/19 17:00 General appearance: Present: no acute distress, well-nourished - EENT Eyes: Present: PERRL, EOM intact - Neck Neck: Present: supple, normal ROM - Respiratory Respiratory effort: normal Respiratory: bilateral: diminished, rales, negative: rhonchi, wheezing - Cardiovascular Rhythm: regular Heart Sounds: Present: S1 & S2 - Extremities Extremities: no ischemia, No edema - Abdominal General gastrointestinal: soft, non-tender, non-distended, normal bowel sounds - Integumentary Integumentary: Present: clear, warm - Psychiatric Psychiatric: appropriate mood/affect, cooperative - Neurologic Neurologic: CNII-XII intact, moves all extremities Results - Labs CBC & Chem 7: 07/02/19 03:56 07/02/19 03:56 Labs: Laboratory Last Values WBC 5.1 K/mm3 (4.5-11.0) 07/02/19 03:56 RBC 3.88 M/mm3 (3.65-5.03) 07/02/19 03:56 Hgb 11.8 gm/dl (10.1-14.3) 07/02/19 03:56 Hct 34.9 % (30.3-42.9) 07/02/19 03:56 MCV 90 fl (79-97) 07/02/19 03:56 MCH 31 pg (28-32) 07/02/19 03:56 MCHC 34 % (30-34) 07/02/19 03:56 RDW 13.6 % (13.2-15.2) 07/02/19 03:56 Plt Count 227 K/mm3 (140-440) 07/02/19 03:56 Lymph % (Auto) 12.1 % (13.4-35.0) L 07/02/19 03:56 [place] % (Auto) 2.6 % (0.0-7.3) 07/02/19 03:56 Eos % (Auto) 0.0 % (0.0-4.3) 07/02/19 03:56 Baso % (Auto) 0.0 % (0.0-1.8) 07/02/19 03:56 Lymph # 0.6 K/mm3 (1.2-5.4) L 07/02/19 03:56 [place] # 0.1 K/mm3 (0.0-0.8) 07/02/19 03:56 Eos # 0.0 K/mm3 (0.0-0.4) 07/02/19 03:56 Baso # 0.0 K/mm3 (0.0-0.1) 07/02/19 03:56 Seg Neutrophils % 85.3 % (40.0-70.0) H 07/02/19 03:56 Seg Neutrophils # 4.4 K/mm3 (1.8-7.7) 07/02/19 03:56 PT 12.4 Sec. (12.2-14.9) 07/02/19 01:04 INR 0.92 (0.87-1.13) 07/02/19 01:04 APTT 24.7 Sec. (24.2-36.6) 07/02/19 01:04 Heparin Anti-Xa Level 0.55 U.I./ml (0.3-0.7) 07/02/19 14:55 Sodium 141 mmol/L (137-145) 07/02/19 03:56 Potassium 4.1 mmol/L (3.6-5.0) D 07/02/19 03:56 Chloride 96.3 mmol/L (98-107) L 07/02/19 03:56 Carbon Dioxide 30 mmol/L (22-30) 07/02/19 03:56 Anion Gap 19 mmol/L 07/02/19 03:56 BUN 13 mg/dL (7-17) 07/02/19 03:56 Creatinine 0.7 mg/dL (0.7-1.2) 07/02/19 03:56 Estimated GFR > 60 ml/min 07/02/19 03:56 BUN/Creatinine Ratio 19 % 07/02/19 03:56 Glucose 153 mg/dL (65-100) H 07/02/19 03:56 Calcium 9.5 mg/dL (8.4-10.2) 07/02/19 03:56 Total Bilirubin 0.70 mg/dL (0.1-1.2) 07/01/19 18:42 AST 26 units/L (5-40) 07/01/19 18:42 ALT 18 units/L (7-56) 07/01/19 18:42 Alkaline Phosphatase 53 units/L (35-129) 07/01/19 18:42 Troponin T 0.146 ng/mL (0.00-0.029) H* D 07/01/19 23:34 NT-Pro-B Natriuret Pep 1578 pg/mL (0-900) H 07/01/19 18:42 Total Protein 6.8 g/dL (6.3-8.2) 07/01/19 18:42 Albumin 4.3 g/dL (3.9-5) 07/01/19 18:42 Albumin/Globulin Ratio 1.7 % 07/01/19 18:42 Triglycerides 79 mg/dL (2-149) 07/01/19 18:42 Cholesterol 236 mg/dL (50-199) H 07/01/19 18:42 LDL Cholesterol Direct 135 mg/dL (50-130) H 07/01/19 18:42 HDL Cholesterol 98 mg/dL (40-59) H 07/01/19 18:42 Cholesterol/HDL Ratio 2.40 % 07/01/19 18:42 Active Medications - Current Medications Current Medications: Generic Name Dose Route Start Last Admin Trade Name Freq PRN Reason Stop Dose Admin Acetaminophen 650 mg 07/01/19 20:11 Tylenol PO Q4H PRN Pain MILD(1-3)/Fever >100.5/OCHOA Albuterol 2.5 mg 07/01/19 20:11 Proventil IH Q3HRT PRN Shortness Of Breath Albuterol/Ipratropium 1 ampul 07/02/19 02:00 07/02/19 14:46 Duoneb *Not For Prn Use* IH 1 ampul Q6HRT BISMARK Administration Aspirin 325 mg 07/03/19 10:00 Aspirin PO QDAY BISMARK Atorvastatin Calcium 40 mg 07/02/19 22:00 Lipitor PO QHS BISMARK Budesonide 0.5 mg 07/02/19 08:00 07/02/19 09:02 Pulmicort IH 0.5 mg Q12HRT BISMARK Administration Docusate Sodium 100 mg 07/01/19 22:00 07/02/19 10:58 Colace PO 100 mg BID BISMARK Administration Heparin Sodium/Sodium Chloride 25,000 unit in 500 mls @ 18 mls/hr 07/02/19 01:00 07/02/19 08:59 Heparin/ 0.45% Nacl-25,000 Unit/500 Ml IV 07/03/19 04:00 850 units/hr TITRATE BISMARK 17 mls/hr Titration Protocol 900 UNITS/HR Sodium Chloride 500 mls @ 50 mls/hr 07/02/19 12:00 Nacl 0.9% 500 Ml IV 07/02/19 21:59 DIRECT BISMARK Methylprednisolone Sodium Succinate 80 mg 07/02/19 06:00 07/02/19 15:19 Solu-Medrol IV 80 mg Q8HR BISMARK Administration Ondansetron HCl 4 mg 07/01/19 20:11 Zofran IV Q8H PRN Nausea And Vomiting Sodium Chloride 10 ml 07/01/19 22:00 07/02/19 10:58 Sodium Chloride Flush Syringe 10 Ml IV 10 ml BID BISMARK Administration Sodium Chloride 10 ml 07/01/19 20:11 Sodium Chloride Flush Syringe 10 Ml IV PRN PRN LINE FLUSH
[2019-07-03] MEDS: IPRATROPIUM/ALBUTEROL SULFATE 3 ML AMPUL.NEB IH SCH ×4 (02:46→21:03)
[2019-07-03 04:40] LABS: Hemoglobin 11.9 gm/dl (10.1-14.3); Mean Corpuscular HGB Conc 34 % (30-34); Mean Corpuscular Volume 91 fl (79-97); Platelet Count 242 K/mm3 (140-440); Red Blood Count 3.86 M/mm3 (3.65-5.03); Red Cell Distribution Width 13.8 % (13.2-15.2)
[2019-07-03 04:51] LABS: INR 0.96 (0.87-1.13)
[2019-07-03 05:32] LABS: BUN/Creatinine Ratio 30; Blood Urea Nitrogen 24 mg/dL (7-17); Calcium 9.7 mg/dL (8.4-10.2); Hemolysis Index 4
[2019-07-03 05:48] LABS: Basophils % (Manual) 0 % (0.0-1.8); Eosinophils % (Manual) 0 % (0.0-4.3); Platelet Estimate Consistent w Auto; Total Cells Counted 100
[2019-07-03] MEDS: methylPREDNISolone Sod Succinate 40 MG/1 ML INJ IV SCH ×3 (06:42→21:15)
[2019-07-03] MEDS ORDERED: SODIUM CHLORIDE 0.9% 500 ML 500 ML ONE (07:38)
[2019-07-03] MEDS: ASPIRIN 325 MG TAB PO SCH ×2 (07:40→10:18)
[2019-07-03] MEDS ORDERED: HEPARIN/NS 5000 UNIT/500ML 1,000 ML IR ONE (08:39)
[2019-07-03] MEDS ORDERED: HEPARIN 10,000 UNITS/10 ML VIAL ONE (08:39)
[2019-07-03] MEDS ORDERED: NITROGLYCERIN SYRINGE 0 ML ONE (08:40)
[2019-07-03] MEDS ORDERED: VERAPAMIL 5 MG/2 ML INJ ONE (08:40)
[2019-07-03] MEDS ORDERED: fentaNYL 100 MCG/2 ML INJ ONE (08:53)
[2019-07-03] MEDS ORDERED: MIDAZOLAM 2 MG/2 ML INJ ONE (08:53)
[2019-07-03] MEDS: BUDESONIDE 0.5 MG/2 ML NEBU IH SCH ×2 (09:10→21:03)
[2019-07-03] MEDS: ASPIRIN 325 MG TAB ONE ×2 (09:10→10:18)
[2019-07-03] MEDS: LIDOCAINE (2%) 20 MG/1 ML VIAL 20 ML MDV INFILTRATI ONE ×2 (09:14→09:32)
--- NOTE | 2019-07-03 10:58 | Progress Note ---
Assessment and Plan S/p [facility] this AM which showed multivessel CAD. Pt to be tx to [place] where Dr. Hale has accepted for possible revascularization. The patient has been seen in conjunction with Dr. Hansen who agrees with the assessment and plan of care. - Patient Problems (1) CAD (coronary artery disease) Current Visit: Yes Status: Acute (2) NSTEMI (non-ST elevated myocardial infarction) Current Visit: Yes Status: Acute (3) COPD exacerbation Current Visit: Yes Status: Acute (4) Acute on chronic respiratory failure Current Visit: Yes Status: Acute (5) Aortic stenosis Current Visit: Yes Status: Chronic (6) Lung nodule Current Visit: Yes Status: Acute (7) Former tobacco use Current Visit: Yes Status: Acute Subjective Date of service: 07/03/19 Principal diagnosis: nstemi Interval history: pt for [facility]. no current cardiac complaints. Objective Last Vital Signs Temp 98.0 F 07/03/19 05:15 Pulse 109 H 07/03/19 10:53 Resp 17 07/03/19 10:53 BP 140/86 07/03/19 05:15 Pulse Ox 96 07/03/19 10:53 - Physical Examination General: No Apparent Distress HEENT: Positive: PERRL, Normocephaly, Mucus Membranes Moist Neck: Positive: neck supple, trachea midline Cardiac: Positive: Reg Rate and Rhythm, S1/S2 Lungs: Positive: Decreased Breath Sounds, Oxygen Neuro: Positive: Grossly Intact Abdomen: Negative: Tender Skin: Negative: Rash Musculoskeletal: No Pain Extremities: Absent: edema - Labs and Meds Coagulation 07/03/19 Range/Units 03:58 PT 12.9 (12.2-14.9) Sec. INR 0.96 (0.87-1.13) CBC 07/03/19 Range/Units 03:58 WBC 9.2 (4.5-11.0) K/mm3 RBC 3.86 (3.65-5.03) M/mm3 Hgb 11.9 (10.1-14.3) gm/dl Hct 35.0 (30.3-42.9) % Plt Count 242 (140-440) K/mm3 Comprehensive Metabolic Panel 07/03/19 Range/Units 03:58 Sodium 139 (137-145) mmol/L Potassium 4.0 (3.6-5.0) mmol/L Chloride 95.8 L (98-107) mmol/L Carbon Dioxide 26 (22-30) mmol/L BUN 24 H (7-17) mg/dL Creatinine 0.8 (0.7-1.2) mg/dL Glucose 189 H (65-100) mg/dL Calcium 9.7 (8.4-10.2) mg/dL - Imaging and Cardiology EKG: report reviewed, image reviewed Echo: report reviewed ( 04/2019 showed EF 55-60%, trace TR, mod (mean gradient 33mmHg, peak gradient 46mmHg, FRANCISCO Vmax 0.95cm, FRANCISCO VTI 1.1cm), trace AR, impaired relaxation. ) - Telemetry EKG Rhythm: Sinus Rhythm - EKG Sinus rhythms and dysrhythmias: sinus rhythm Chamber hypertrophy or enlargement: left ventricular hypertro
--- NOTE | 2019-07-03 10:59 | Cardiac Catherization Report ---
INDICATION FOR PROCEDURE: The patient is an 83-year-old -[place] female with history of severe COPD, chronic respiratory failure, requiring home oxygen and also was a former smoker, with history of thoracic aortic aneurysm measuring approximately about 3.7 cm in the past on the CT scan done along with pulmonary spiculated nodule noted in the right upper lobe suspicious for malignancy, but the patient did not have any workup performed, was known to have mild aortic stenosis in the past, mean gradient of 33 mmHg on the echo done in April 2019 with ejection fraction of 55-60%, was admitted with shortness of breath, for respiratory failure and was noted to have elevated troponin suggestive of non-STEMI, hence a Cardiology consultation was obtained because of elevated cardiac enzymes. The patient is scheduled for cardiac catheterization for definitive diagnosis and treatment. The patient denied any chest pain. The patient is aware of the procedure, potential complications and the alternatives of therapy available. DESCRIPTION OF PROCEDURE: The patient was brought to the catheterization laboratory in a fasting condition. She was evaluated for moderate sedation. The patient was felt to be appropriate candidate for moderate sedation. However, consideration will be given for underlying chronic respiratory failure. The patient received 1 mg of Versed and 50 mcg of fentanyl. Subsequently, local anesthesia was given in the right wrist area and right radial artery puncture was made using 21-gauge arterial puncture needle. It was difficult to navigate the radial artery. Hence, an angiogram of the radial artery was performed. There was some narrowing of the radial artery at the ostium. With the help of a Glidewire, this was navigated and a 5-Mosotho multipurpose catheter was advanced into the left ventricle. This catheter was exchanged with a Jayant catheter for measurement of the LV and aortic pressures simultaneously. Left ventriculogram was performed using hand injection. After obtaining the gradient across the aortic valve, Denver catheter was exchanged with a 5-Mosotho TIG catheter. The left and right coronary angiograms were performed without difficulty. At the end of the procedure, catheter and sheath were removed. Good hemostasis was achieved with radial band application. The patient was monitored throughout the procedure for any side effects from sedation. The patient was well sedated, but breathing normally. Pulse oximetry, EKG monitoring and hemodynamic monitoring were monitored. The patient tolerated the sedation well. No untoward complications were noted. The patient was communicating normally and breathing normally at the end of the procedure without any focal deficits. The patient's sedation started at 9:25 a.m. and monitoring ended at 9:53 a.m. in the catheterization laboratory. The patient was transferred to the room in stable condition. Following findings were noted. HEMODYNAMICS: 1. Opening aortic pressure 142/67, left ventricular pressure 168/16. There is a gradient across the aortic valve with mean gradient of 25 mmHg and peak gradient of 23 mmHg noted with Jayant catheter. Estimated ejection fraction 55-60%. Coronary angiography showed diffuse calcification throughout the coronary tree. Left main showed only mild disease with calcification. 2. LAD shows diffuse calcification with 80% or more segmental lesion in the mid part along with 50-60% lesion in the distal LAD. The patient does have bypassable LAD. Circumflex artery showed very tight calcific 80-90% segmental focal proximal lesion and also at the bifurcation of the distal marginal branches there is a 90% stenosis noted. Distal marginal branch are bypassable. 3. Right coronary artery, large, dominant vessel shows severe ostial lesion approaching 95%. However, rest of the vessel is huge and without any significant disease. 4. Collaterals none. FINAL IMPRESSION: Normal sized left ventricle with mild aortic stenosis, mean gradient of 25-26 mmHg and peak gradient of 23 mmHg with normal left ventricular systolic function of 55-60%. Diffuse calcifications of the coronaries along with severe triple vessel disease as mentioned above with bypassable distal vessels. The patient is an 83-year-old with chronic respiratory failure, underlying chronic obstructive pulmonary disease with history of smoking, with history of thoracic aortic aneurysm measuring 3.7 cm and also a nodule in the right upper lobe suspicious for malignancy, but no workup was performed. This was noted on the CT scan in April 2019. The above coronary angiography, the patient would benefit from revascularization by this probably surgical intervention. However, she may be a high risk candidate. Discussed with Dr. Schaefer with all the above findings and he agreed to transfer the patient and have further evaluation. No patient's family is available at this point. We will discuss with the family when available. The patient tolerated the procedure well. No untoward complications were noted. JOB# [id number] [place]
[2019-07-03] MEDS: DOCUSATE SODIUM 100 MG CAP PO SCH ×2 (11:50→21:16)
--- NOTE | 2019-07-03 14:19 | Event Note ---
Date: 07/03/19 Patient very rude and upset this am. States that I did not tell her she needed surgery and what is this about multiple hospitals. I attempted to explain to her that I am the operations administrative assistant and not the cabinetmaker supervisor. I did not order "surgery" on her. Per the cards note has multivessel disease and is being transferred to [place]. Same recs for COPD. Will sign off. This patient does not wish to have her lung lesion evaluated, nor does she want to follow up with us anymore.
--- NOTE | 2019-07-03 14:51 | Discharge Summary ---
Providers - Providers Date of Admission: 07/02/19 11:10 Date of discharge: 07/03/19 Attending physician: EDITA DE 07/02/19 00:54 Consult to Physician [CONS] Routine Comment: Consulting Provider: SHIRAZ ALAN Physician Instructions: Reason For Exam: NSTEMI type 2 07/03/19 10:58 Consult to Cardiac Rehabilitation [CONS] Routine Reason For Exam: Cardiac Rehab Evaluation Primary care physician: HEALTH ANALYST Hospitalization Reason for admission: chest pain/non-ST elevation [place] Condition: Fair Procedures: Chest x-ray Cardiac catheterization Hospital course: 83, [id number] female patient with significant smoking history, COPD emphysema chronic respiratory failure on home oxygen, pulmonary nodule Was admitted with non-ST elevation [place], evaluated by cardiology, underwent heart cath, multivessel coronary artery disease, cardiology recommended transfer to [facility], for revascularization. Final diagnosis: (1) Multivessel CAD (coronary artery disease) Current Visit: Yes Status: Acute Patient is being transferred to [facility] for Possible revascularization surgically (2) NSTEMI (non-ST elevated myocardial infarction) Current Visit: Yes Status: Acute (3) COPD exacerbation Current Visit: Yes Status: Acute (4) Acute on chronic respiratory failure Current Visit: Yes Status: Acute (5) Aortic stenosis Current Visit: Yes Status: Chronic (6) Lung nodule Current Visit: Yes Status: Acute (7) Former tobacco use Current Visit: Yes Status: Acute Disposition: [id number]/TX-[id number] ANOTHER TYPE [facility] Time spent for discharge: 35 min Core Measure Documentation - Palliative Care Palliative Care/ Comfort Measures: Not Applicable - Core Measures Any of the following diagnoses?: none Exam - Constitutional Vitals: Temp Pulse Resp BP Pulse Ox 97.1 F L 108 H 18 136/83 95 07/03/19 12:13 07/03/19 14:36 07/03/19 14:36 07/03/19 12:13 07/03/19 14:38 General appearance: Present: mild distress, well-nourished - EENT Eyes: Present: PERRL, EOM intact - Neck Neck: Present: supple, normal ROM - Respiratory Respiratory effort: normal Respiratory: bilateral: diminished, negative: rales, rhonchi, wheezing - Cardiovascular Rhythm: regular Heart Sounds: Present: S1 & S2 - Extremities Extremities: no ischemia, No edema - Integumentary Integumentary: Present: clear, warm - Musculoskeletal Musculoskeletal: strength equal bilaterally - Psychiatric Psychiatric: appropriate mood/affect, cooperative - Neurologic Neurologic: CNII-XII intact, moves all extremities Plan Diet: other (NPO) Additional Instructions: S/p C this AM which showed multivessel CAD. Pt to be tx to [place] where Dr. Hale has accepted for possible revascularization. Follow up with: PRIMARY CARE, [Primary Care Provider] - 7 Days
--- NOTE | 2019-07-03 19:10 | Progress Note ---
Assessment and Plan Assessment and plan: 83, [id number] female patient with significant smoking history, COPD emphysema chronic respiratory failure on home oxygen, pulmonary nodule Was admitted with non-ST elevation VA, evaluated by cardiology, underwent heart cath, multivessel coronary artery disease, cardiology recommended transfer to [place] [facility], for revascularization. Awaiting transfer Final diagnosis: (1) Multivessel CAD (coronary artery disease) Current Visit: Yes Status: Acute Patient is being transferred to [place] [facility] for Possible revascularization surgically (2) NSTEMI (non-ST elevated myocardial infarction) Current Visit: Yes Status: Acute (3) COPD exacerbation Current Visit: Yes Status: Acute (4) Acute on chronic respiratory failure Current Visit: Yes Status: Acute (5) Aortic stenosis Current Visit: Yes Status: Chronic (6) Lung nodule Current Visit: Yes Status: Acute (7) Former tobacco use Current Visit: Yes Status: Acute Smoking cessation Monitor closely and adjust management as needed History Interval history: Patient seen and examined medical records reviewed patient underwent left heart catheterization Multivessel coronary artery disease, cardiology recommended Transfer to [facility], for possible coronary artery bypass surgery Patient is already accepted by CT surgeon .Awaiting transfer Patient feels slightly better Mild intermittent chest pain Vital signs reviewed Hospitalist Physical - Constitutional Vitals: Temp Pulse Resp BP Pulse Ox 98.6 F 109 H 18 141/84 95 07/03/19 16:46 07/03/19 16:46 07/03/19 16:46 07/03/19 16:46 07/03/19 16:46 General appearance: Present: no acute distress, well-nourished - EENT Eyes: Present: PERRL, EOM intact - Neck Neck: Present: supple, normal ROM - Respiratory Respiratory effort: normal Respiratory: bilateral: diminished, negative: rales, rhonchi, wheezing - Cardiovascular Rhythm: regular Heart Sounds: Present: S1 & S2 - Extremities Extremities: no ischemia, No edema - Abdominal General gastrointestinal: soft, non-tender, non-distended, normal bowel sounds - Integumentary Integumentary: Present: clear, warm - Psychiatric Psychiatric: appropriate mood/affect, cooperative - Neurologic Neurologic: CNII-XII intact, moves all extremities Results - Labs CBC & Chem 7: 07/04/19 04:07 07/04/19 04:07 Labs: Laboratory Last Values WBC 9.2 K/mm3 (4.5-11.0) 07/03/19 03:58 RBC 3.86 M/mm3 (3.65-5.03) 07/03/19 03:58 Hgb 11.9 gm/dl (10.1-14.3) 07/03/19 03:58 Hct 35.0 % (30.3-42.9) 07/03/19 03:58 MCV 91 fl (79-97) 07/03/19 03:58 MCH 31 pg (28-32) 07/03/19 03:58 MCHC 34 % (30-34) 07/03/19 03:58 RDW 13.8 % (13.2-15.2) 07/03/19 03:58 Plt Count 242 K/mm3 (140-440) 07/03/19 03:58 Lymph % (Auto) 12.1 % (13.4-35.0) L 07/02/19 03:56 [place] % (Auto) 2.6 % (0.0-7.3) 07/02/19 03:56 Eos % (Auto) 0.0 % (0.0-4.3) 07/02/19 03:56 Baso % (Auto) 0.0 % (0.0-1.8) 07/02/19 03:56 Lymph # 0.6 K/mm3 (1.2-5.4) L 07/02/19 03:56 [place] # 0.1 K/mm3 (0.0-0.8) 07/02/19 03:56 Eos # 0.0 K/mm3 (0.0-0.4) 07/02/19 03:56 Baso # 0.0 K/mm3 (0.0-0.1) 07/02/19 03:56 Add Manual Diff Complete 07/03/19 03:58 Total Counted 100 07/03/19 03:58 Seg Neutrophils % Blow Down Helper 07/03/19 03:58 Seg Neuts % (Manual) 92.0 % (40.0-70.0) H 07/03/19 03:58 Band Neutrophils % 0 % 07/03/19 03:58 Lymphocytes % (Manual) 6.0 % (13.4-35.0) L 07/03/19 03:58 Reactive Lymphs % (Man) 0 % 07/03/19 03:58 Monocytes % (Manual) 2.0 % (0.0-7.3) 07/03/19 03:58 Eosinophils % (Manual) 0 % (0.0-4.3) 07/03/19 03:58 Basophils % (Manual) 0 % (0.0-1.8) 07/03/19 03:58 Metamyelocytes % 0 % 07/03/19 03:58 Myelocytes % 0 % 07/03/19 03:58 Promyelocytes % 0 % 07/03/19 03:58 Blast Cells % 0 % 07/03/19 03:58 Nucleated RBC % Not Reportable 07/03/19 03:58 Seg Neutrophils # 4.4 K/mm3 (1.8-7.7) 07/02/19 03:56 Seg Neutrophils # Man 8.5 K/mm3 (1.8-7.7) H 07/03/19 03:58 Band Neutrophils # 0.0 K/mm3 07/03/19 03:58 Lymphocytes # (Manual) 0.6 K/mm3 (1.2-5.4) L 07/03/19 03:58 Abs React Lymphs (Man) 0.0 K/mm3 07/03/19 03:58 Monocytes # (Manual) 0.2 K/mm3 (0.0-0.8) 07/03/19 03:58 Eosinophils # (Manual) 0.0 K/mm3 (0.0-0.4) 07/03/19 03:58 Basophils # (Manual) 0.0 K/mm3 (0.0-0.1) 07/03/19 03:58 Metamyelocytes # 0.0 K/mm3 07/03/19 03:58 Myelocytes # 0.0 K/mm3 07/03/19 03:58 Promyelocytes # 0.0 K/mm3 07/03/19 03:58 Blast Cells # 0.0 K/mm3 07/03/19 03:58 WBC Morphology Not Reportable 07/03/19 03:58 Hypersegmented Neuts Not Reportable 07/03/19 03:58 Hyposegmented Neuts Not Reportable 07/03/19 03:58 Hypogranular Neuts Not Reportable 07/03/19 03:58 Smudge Cells Not Reportable 07/03/19 03:58 Toxic Granulation Not Reportable 07/03/19 03:58 Toxic Vacuolation Not Reportable 07/03/19 03:58 Dohle Bodies Not Reportable 07/03/19 03:58 Pelger-Huet Anomaly Not Reportable 07/03/19 03:58 Capri Rods Not Reportable 07/03/19 03:58 Platelet Estimate Consistent w auto 07/03/19 03:58 Clumped Platelets Not Reportable 07/03/19 03:58 Plt Clumps, EDTA Not Reportable 07/03/19 03:58 Large Platelets Not Reportable 07/03/19 03:58 Giant Platelets Not Reportable 07/03/19 03:58 Platelet Satelliting Not Reportable 07/03/19 03:58 Plt Morphology Comment Not Reportable 07/03/19 03:58 RBC Morphology Not Reportable 07/03/19 03:58 Dimorphic RBCs Not Reportable 07/03/19 03:58 Polychromasia Not Reportable 07/03/19 03:58 Hypochromasia Not Reportable 07/03/19 03:58 Poikilocytosis Not Reportable 07/03/19 03:58 Anisocytosis Not Reportable 07/03/19 03:58 Microcytosis Not Reportable 07/03/19 03:58 Macrocytosis Not Reportable 07/03/19 03:58 Spherocytes Not Reportable 07/03/19 03:58 Pappenheimer Bodies Not Reportable 07/03/19 03:58 Sickle Cells Not Reportable 07/03/19 03:58 Target Cells Not Reportable 07/03/19 03:58 Tear Drop Cells Not Reportable 07/03/19 03:58 Ovalocytes Not Reportable 07/03/19 03:58 Helmet Cells Not Reportable 07/03/19 03:58 Lucio-[place] Bodies Not Reportable 07/03/19 03:58 [place] Rings Not Reportable 07/03/19 03:58 [place] Cells Not Reportable 07/03/19 03:58 Bite Cells Not Reportable 07/03/19 03:58 Crenated Cell Not Reportable 07/03/19 03:58 Elliptocytes Not Reportable 07/03/19 03:58 Acanthocytes (Spur) Not Reportable 07/03/19 03:58 Rouleaux Not Reportable 07/03/19 03:58 Hemoglobin C Crystals Not Reportable 07/03/19 03:58 Schistocytes Not Reportable 07/03/19 03:58 Malaria parasites Not Reportable 07/03/19 03:58 Kemal Bodies Not Reportable 07/03/19 03:58 Hem Pathologist Commnt No 07/03/19 03:58 PT 12.9 Sec. (12.2-14.9) 07/03/19 03:58 INR 0.96 (0.87-1.13) 07/03/19 03:58 APTT 24.7 Sec. (24.2-36.6) 07/02/19 01:04 Heparin Anti-Xa Level < 0.10 U.I./ml (0.3-0.7) L 07/03/19 14:57 Sodium 139 mmol/L (137-145) 07/03/19 03:58 Potassium 4.0 mmol/L (3.6-5.0) 07/03/19 03:58 Chloride 95.8 mmol/L (98-107) L 07/03/19 03:58 Carbon Dioxide 26 mmol/L (22-30) 07/03/19 03:58 Anion Gap 21 mmol/L 07/03/19 03:58 BUN 24 mg/dL (7-17) H 07/03/19 03:58 Creatinine 0.8 mg/dL (0.7-1.2) 07/03/19 03:58 Estimated GFR > 60 ml/min 07/03/19 03:58 BUN/Creatinine Ratio 30 % 07/03/19 03:58 Glucose 189 mg/dL (65-100) H 07/03/19 03:58 POC Glucose 138 (70-105) H 07/03/19 06:58 Calcium 9.7 mg/dL (8.4-10.2) 07/03/19 03:58 Total Bilirubin 0.70 mg/dL (0.1-1.2) 07/01/19 18:42 AST 26 units/L (5-40) 07/01/19 18:42 ALT 18 units/L (7-56) 07/01/19 18:42 Alkaline Phosphatase 53 units/L (35-129) 07/01/19 18:42 Troponin T 0.096 ng/mL (0.00-0.029) H 07/03/19 03:58 NT-Pro-B Natriuret Pep 1578 pg/mL (0-900) H 07/01/19 18:42 Total Protein 6.8 g/dL (6.3-8.2) 07/01/19 18:42 Albumin 4.3 g/dL (3.9-5) 07/01/19 18:42 Albumin/Globulin Ratio 1.7 % 07/01/19 18:42 Triglycerides 79 mg/dL (2-149) 07/01/19 18:42 Cholesterol 236 mg/dL (50-199) H 07/01/19 18:42 LDL Cholesterol Direct 135 mg/dL (50-130) H 07/01/19 18:42 HDL Cholesterol 98 mg/dL (40-59) H 07/01/19 18:42 Cholesterol/HDL Ratio 2.40 % 07/01/19 18:42 Active Medications - Current Medications Current Medications: Generic Name Dose Route Start Last Admin Trade Name Freq PRN Reason Stop Dose Admin Acetaminophen 650 mg 07/01/19 20:11 Tylenol PO Q4H PRN Pain MILD(1-3)/Fever >100.5/OCHOA Albuterol 2.5 mg 07/01/19 20:11 Proventil IH Q3HRT PRN Shortness Of Breath Albuterol/Ipratropium 1 ampul 07/02/19 02:00 07/03/19 14:36 Duoneb *Not For Prn Use* IH 1 ampul Q6HRT BISMARK Administration Aspirin 325 mg 07/03/19 10:00 07/03/19 10:18 Aspirin PO Not Given QDAY [facility] Atorvastatin Calcium 40 mg 07/02/19 22:00 07/02/19 22:41 Lipitor PO 40 mg QHS BISMARK Administration Budesonide 0.5 mg 07/02/19 08:00 07/03/19 09:10 Pulmicort IH Not Given Q12HRT BISMARK Docusate Sodium 100 mg 07/01/19 22:00 07/03/19 11:50 Colace PO Not Given BID [facility] Methylprednisolone Sodium Succinate 80 mg 07/02/19 06:00 07/03/19 13:58 Solu-Medrol IV 80 mg Q8HR BISMARK Administration Ondansetron HCl 4 mg 07/01/19 20:11 Zofran IV Q8H PRN Nausea And Vomiting Sodium Chloride 10 ml 01/13/20 22:00 07/03/19 11:00 Sodium Chloride Flush Syringe 10 Ml IV Not Given BID BISMARK Sodium Chloride 10 ml 07/01/19 20:11 07/03/19 06:43 Sodium Chloride Flush Syringe 10 Ml IV 10 ml PRN PRN Administration LINE FLUSH
[2019-07-04] MEDS: IPRATROPIUM/ALBUTEROL SULFATE 3 ML AMPUL.NEB IH SCH ×3 (02:18→14:26)
[2019-07-04 05:07] LABS: Hematocrit 37.2 % (30.3-42.9); Hemoglobin 12.2 gm/dl (10.1-14.3)
[2019-07-04 05:19] LABS: BUN/Creatinine Ratio 40; Blood Urea Nitrogen 32 mg/dL (7-17); Calcium 9.5 mg/dL (8.4-10.2); Hemolysis Index 21
[2019-07-04] MEDS: methylPREDNISolone Sod Succinate 40 MG/1 ML INJ IV SCH ×2 (06:27→07:53)
[2019-07-04] MEDS: BUDESONIDE 0.5 MG/2 ML NEBU IH SCH (08:53)
[2019-07-04] MEDS: ASPIRIN 325 MG TAB PO SCH (10:17)
[2019-07-04] MEDS: DOCUSATE SODIUM 100 MG CAP PO SCH (10:18)
--- NOTE | 2019-07-04 12:49 | Progress Note ---
Assessment and Plan S/p C yesterday which showed multivessel CAD. Pt is pending tx to [place] where Dr. Hale has accepted for possible revascularization. The patient has been seen in conjunction with Dr. Nahomy Campbell who agrees with the assessment and plan of care. - Patient Problems (1) CAD (coronary artery disease) Current Visit: Yes Status: Acute (2) NSTEMI (non-ST elevated myocardial infarction) Current Visit: Yes Status: Acute (3) COPD exacerbation Current Visit: Yes Status: Acute (4) Acute on chronic respiratory failure Current Visit: Yes Status: Acute (5) Aortic stenosis Current Visit: Yes Status: Chronic (6) Lung nodule Current Visit: Yes Status: Acute (7) Former tobacco use Current Visit: Yes Status: Acute Subjective Date of service: 07/04/19 Principal diagnosis: nstemi Interval history: pt resting in bed, no current cardiac complaints. Objective Last Vital Signs Temp 98.0 F 07/04/19 12:30 Pulse 119 H 07/04/19 12:30 Resp 22 07/04/19 12:30 BP 144/94 07/04/19 12:30 Pulse Ox 96 07/04/19 12:30 - Physical Examination General: No Apparent Distress HEENT: Positive: PERRL, Normocephaly, Mucus Membranes Moist Neck: Positive: neck supple, trachea midline Cardiac: Positive: Reg Rate and Rhythm, S1/S2 Lungs: Positive: Decreased Breath Sounds Neuro: Positive: Grossly Intact Abdomen: Negative: Tender Skin: Negative: Rash Musculoskeletal: No Pain Extremities: Absent: edema - Labs and Meds CBC 07/04/19 Range/Units 04:07 Hgb 12.2 (10.1-14.3) gm/dl Hct 37.2 (30.3-42.9) % Plt Count 226 (140-440) K/mm3 Comprehensive Metabolic Panel 07/04/19 Range/Units 04:07 Sodium 135 L (137-145) mmol/L Potassium 4.2 (3.6-5.0) mmol/L Chloride 95.4 L (98-107) mmol/L Carbon Dioxide 27 (22-30) mmol/L BUN 32 H (7-17) mg/dL Creatinine 0.8 (0.7-1.2) mg/dL Glucose 130 H (65-100) mg/dL Calcium 9.5 (8.4-10.2) mg/dL - Imaging and Cardiology EKG: report reviewed, image reviewed Echo: report reviewed ( 04/2019 showed EF 55-60%, trace TR, mod (mean gradient 33mmHg, peak gradient 46mmHg, FRANCISCO Vmax 0.95cm, FRANCISCO VTI 1.1cm), trace AR, impaired relaxation. ) - EKG Sinus rhythms and dysrhythmias: sinus rhythm Chamber hypertrophy or enlargement: left ventricular hypertro
[2019-07-04 15:32] VITALS: BP 142/81
--- NOTE | 2019-07-04 18:58 | Progress Note ---
Assessment and Plan Assessment and plan: 83-year-old female who is a former smoker with history of emphysema, COPD, chronic respiratory failure on home O2, pulmonary nodules who presents to [facility] ED with complaints of shortness of breath. Status post heart cath Multivessel coronary artery disease Pending transfer to [facility] for vascular surgery --Multivessel coronary artery disease Continue current cardiac medications Awaiting transfer to [facility] for bypass surgery --Acute on chronic hypoxic respiratory failure on home oxygen requirements 6 L nasal cannula continuously BiPAP as needed. Titrate O2 sats to more than 90% --Acute exacerbation COPD Worsening shortness of breath Continue DuoNebs and Pulmicort, albuterol when necessary IV systemic steroids Pulmonary consulted --Hypokalemia; replenishment per protocol and monitor levels --Hx Pulmonary nodules Pulmonary evaluation inpatient versus outpatient --DVT PPX; Heparin --CODE STATUS; full code Pending transfer to [facility] Plan Of care reviewed with the patient and her nurse History Interval history: Patient seen and examined medical records reviewed Patient with coronary artery disease status post heart cath/multivessel coronary artery disease Awaiting transfer to [facility] for possible CABG Patient was accepted for transfer, awaiting callback Patient has no new complaints Vital signs reviewed Hospitalist Physical - Constitutional Vitals: Temp Pulse Resp BP Pulse Ox 98.0 F 117 H 20 142/81 95 07/04/19 15:26 07/04/19 15:26 07/04/19 15:26 07/04/19 15:26 07/04/19 15:26 General appearance: Present: no acute distress, well-nourished - EENT Eyes: Present: PERRL, EOM intact - Neck Neck: Present: supple, normal ROM - Respiratory Respiratory effort: normal Respiratory: bilateral: diminished, negative: rales, rhonchi, wheezing - Cardiovascular Rhythm: regular Heart Sounds: Present: S1 & S2 - Extremities Extremities: no ischemia, No edema - Abdominal General gastrointestinal: soft, non-tender, non-distended, normal bowel sounds - Integumentary Integumentary: Present: clear, warm - Psychiatric Psychiatric: appropriate mood/affect, cooperative - Neurologic Neurologic: CNII-XII intact, moves all extremities Results - Labs CBC & Chem 7: 07/04/19 04:07 07/04/19 04:07 Labs: Laboratory Last Values WBC 9.2 K/mm3 (4.5-11.0) 07/03/19 03:58 RBC 3.86 M/mm3 (3.65-5.03) 07/03/19 03:58 Hgb 12.2 gm/dl (10.1-14.3) 07/04/19 04:07 Hct 37.2 % (30.3-42.9) 07/04/19 04:07 MCV 91 fl (79-97) 07/03/19 03:58 MCH 31 pg (28-32) 07/03/19 03:58 MCHC 34 % (30-34) 07/03/19 03:58 RDW 13.8 % (13.2-15.2) 07/03/19 03:58 Plt Count 226 K/mm3 (140-440) 07/04/19 04:07 Lymph % (Auto) 12.1 % (13.4-35.0) L 07/02/19 03:56 [place] % (Auto) 2.6 % (0.0-7.3) 07/02/19 03:56 Eos % (Auto) 0.0 % (0.0-4.3) 07/02/19 03:56 Baso % (Auto) 0.0 % (0.0-1.8) 07/02/19 03:56 Lymph # 0.6 K/mm3 (1.2-5.4) L 07/02/19 03:56 [place] # 0.1 K/mm3 (0.0-0.8) 07/02/19 03:56 Eos # 0.0 K/mm3 (0.0-0.4) 07/02/19 03:56 Baso # 0.0 K/mm3 (0.0-0.1) 07/02/19 03:56 Add Manual Diff Complete 07/03/19 03:58 Total Counted 100 07/03/19 03:58 Seg Neutrophils % Asphalt Tamping Machine Operator 07/03/19 03:58 Seg Neuts % (Manual) 92.0 % (40.0-70.0) H 07/03/19 03:58 Band Neutrophils % 0 % 07/03/19 03:58 Lymphocytes % (Manual) 6.0 % (13.4-35.0) L 07/03/19 03:58 Reactive Lymphs % (Man) 0 % 07/03/19 03:58 Monocytes % (Manual) 2.0 % (0.0-7.3) 07/03/19 03:58 Eosinophils % (Manual) 0 % (0.0-4.3) 07/03/19 03:58 Basophils % (Manual) 0 % (0.0-1.8) 07/03/19 03:58 Metamyelocytes % 0 % 07/03/19 03:58 Myelocytes % 0 % 07/03/19 03:58 Promyelocytes % 0 % 07/03/19 03:58 Blast Cells % 0 % 07/03/19 03:58 Nucleated RBC % Not Reportable 07/03/19 03:58 Seg Neutrophils # 4.4 K/mm3 (1.8-7.7) 07/02/19 03:56 Seg Neutrophils # Man 8.5 K/mm3 (1.8-7.7) H 07/03/19 03:58 Band Neutrophils # 0.0 K/mm3 07/03/19 03:58 Lymphocytes # (Manual) 0.6 K/mm3 (1.2-5.4) L 07/03/19 03:58 Abs React Lymphs (Man) 0.0 K/mm3 07/03/19 03:58 Monocytes # (Manual) 0.2 K/mm3 (0.0-0.8) 07/03/19 03:58 Eosinophils # (Manual) 0.0 K/mm3 (0.0-0.4) 07/03/19 03:58 Basophils # (Manual) 0.0 K/mm3 (0.0-0.1) 07/03/19 03:58 Metamyelocytes # 0.0 K/mm3 07/03/19 03:58 Myelocytes # 0.0 K/mm3 07/03/19 03:58 Promyelocytes # 0.0 K/mm3 07/03/19 03:58 Blast Cells # 0.0 K/mm3 07/03/19 03:58 WBC Morphology Not Reportable 07/03/19 03:58 Hypersegmented Neuts Not Reportable 07/03/19 03:58 Hyposegmented Neuts Not Reportable 07/03/19 03:58 Hypogranular Neuts Not Reportable 07/03/19 03:58 Smudge Cells Not Reportable 07/03/19 03:58 Toxic Granulation Not Reportable 07/03/19 03:58 Toxic Vacuolation Not Reportable 07/03/19 03:58 Dohle Bodies Not Reportable 07/03/19 03:58 Pelger-Huet Anomaly Not Reportable 07/03/19 03:58 Capri Rods Not Reportable 07/03/19 03:58 Platelet Estimate Consistent w auto 07/03/19 03:58 Clumped Platelets Not Reportable 07/03/19 03:58 Plt Clumps, EDTA Not Reportable 07/03/19 03:58 Large Platelets Not Reportable 07/03/19 03:58 Giant Platelets Not Reportable 07/03/19 03:58 Platelet Satelliting Not Reportable 07/03/19 03:58 Plt Morphology Comment Not Reportable 07/03/19 03:58 RBC Morphology Not Reportable 07/03/19 03:58 Dimorphic RBCs Not Reportable 07/03/19 03:58 Polychromasia Not Reportable 07/03/19 03:58 Hypochromasia Not Reportable 07/03/19 03:58 Poikilocytosis Not Reportable 07/03/19 03:58 Anisocytosis Not Reportable 07/03/19 03:58 Microcytosis Not Reportable 07/03/19 03:58 Macrocytosis Not Reportable 07/03/19 03:58 Spherocytes Not Reportable 07/03/19 03:58 Pappenheimer Bodies Not Reportable 07/03/19 03:58 Sickle Cells Not Reportable 07/03/19 03:58 Target Cells Not Reportable 07/03/19 03:58 Tear Drop Cells Not Reportable 07/03/19 03:58 Ovalocytes Not Reportable 07/03/19 03:58 Helmet Cells Not Reportable 07/03/19 03:58 Lucio-[place] Bodies Not Reportable 07/03/19 03:58 [place] Rings Not Reportable 07/03/19 03:58 [place] Cells Not Reportable 07/03/19 03:58 Bite Cells Not Reportable 07/03/19 03:58 Crenated Cell Not Reportable 07/03/19 03:58 Elliptocytes Not Reportable 07/03/19 03:58 Acanthocytes (Spur) Not Reportable 07/03/19 03:58 Rouleaux Not Reportable 07/03/19 03:58 Hemoglobin C Crystals Not Reportable 07/03/19 03:58 Schistocytes Not Reportable 07/03/19 03:58 Malaria parasites Not Reportable 07/03/19 03:58 [place]al Bodies Not Reportable 07/03/19 03:58 Hem Pathologist Commnt No 07/03/19 03:58 PT 12.9 Sec. (12.2-14.9) 07/03/19 03:58 INR 0.96 (0.87-1.13) 07/03/19 03:58 APTT 24.7 Sec. (24.2-36.6) 07/02/19 01:04 Heparin Anti-Xa Level < 0.10 U.I./ml (0.3-0.7) L 07/03/19 14:57 Sodium 135 mmol/L (137-145) L 07/04/19 04:07 Potassium 4.2 mmol/L (3.6-5.0) 07/04/19 04:07 Chloride 95.4 mmol/L (98-107) L 07/04/19 04:07 Carbon Dioxide 27 mmol/L (22-30) 07/04/19 04:07 Anion Gap 17 mmol/L 07/04/19 04:07 BUN 32 mg/dL (7-17) H 07/04/19 04:07 Creatinine 0.8 mg/dL (0.7-1.2) 07/04/19 04:07 Estimated GFR > 60 ml/min 07/04/19 04:07 BUN/Creatinine Ratio 40 % 07/04/19 04:07 Glucose 130 mg/dL (65-100) H 07/04/19 04:07 POC Glucose 138 (70-105) H 07/03/19 06:58 Calcium 9.5 mg/dL (8.4-10.2) 07/04/19 04:07 Total Bilirubin 0.70 mg/dL (0.1-1.2) 07/01/19 18:42 AST 26 units/L (5-40) 07/01/19 18:42 ALT 18 units/L (7-56) 07/01/19 18:42 Alkaline Phosphatase 53 units/L (35-129) 07/01/19 18:42 Troponin T 0.096 ng/mL (0.00-0.029) H 07/03/19 03:58 NT-Pro-B Natriuret Pep 1578 pg/mL (0-900) H 07/01/19 18:42 Total Protein 6.8 g/dL (6.3-8.2) 07/01/19 18:42 Albumin 4.3 g/dL (3.9-5) 07/01/19 18:42 Albumin/Globulin Ratio 1.7 % 07/01/19 18:42 Triglycerides 79 mg/dL (2-149) 07/01/19 18:42 Cholesterol 236 mg/dL (50-199) H 07/01/19 18:42 LDL Cholesterol Direct 135 mg/dL (50-130) H 07/01/19 18:42 HDL Cholesterol 98 mg/dL (40-59) H 07/01/19 18:42 Cholesterol/HDL Ratio 2.40 % 07/01/19 18:42 Active Medications - Current Medications Current Medications: Generic Name Dose Route Start Last Admin Trade Name Freq PRN Reason Stop Dose Admin Acetaminophen 650 mg 07/01/19 20:11 Tylenol PO Q4H PRN Pain MILD(1-3)/Fever >100.5/OCHOA Albuterol 2.5 mg 07/01/19 20:11 Proventil IH Q3HRT PRN Shortness Of Breath Albuterol/Ipratropium 1 ampul 07/02/19 02:00 07/04/19 14:26 Duoneb *Not For Prn Use* IH 1 ampul Q6HRT BISMARK Administration Aspirin 325 mg 07/03/19 10:00 07/04/19 10:17 Aspirin PO 325 mg QDAY BISMARK Administration Atorvastatin Calcium 40 mg 07/02/19 22:00 07/03/19 21:15 Lipitor PO 40 mg QHS BISMARK Administration Budesonide 0.5 mg 07/02/19 08:00 07/04/19 08:53 Pulmicort IH 0.5 mg Q12HRT BISMARK Administration Docusate Sodium 100 mg 07/01/19 22:00 07/04/19 10:18 Colace PO Not Given BID [facility] Methylprednisolone Sodium Succinate 80 mg 07/02/19 06:00 07/04/19 07:53 Solu-Medrol IV Not Given Q8HR [facility] Metoprolol Tartrate 25 mg 07/04/19 22:00 Metoprolol PO BID BISMARK Ondansetron HCl 4 mg 07/01/19 20:11 Zofran IV Q8H PRN Nausea And Vomiting Sodium Chloride 10 ml 07/01/19 22:00 07/04/19 10:19 Sodium Chloride Flush Syringe 10 Ml IV 10 ml BID BISMARK Administration Sodium Chloride 10 ml 07/01/19 20:11 07/03/19 06:43 Sodium Chloride Flush Syringe 10 Ml IV 10 ml PRN PRN Administration LINE FLUSH
[2019-07-04] MEDS ORDERED: METOPROLOL TARTRATE 25 MG TAB PO SCH (22:00)
== END 2019-07-04 19:30 | disposition short-term general hospital (02) | DRG 280 ==
LOC: ED 18:12 → IMCU 19:48 → 4A 07-02 04:11 → OBSVTOIN 07-02 11:10 → 4A 07-02 17:15
PROVIDERS: ADMIT Internal Medicine; ATTEND Internal Medicine
PROC: 5A09357 Assistance with Respiratory Ventilation, Less than 24 Consecutive Hours, Continuous Positive Airway Pressure (ICD-10-PCS; principal; 2019-07-01)
PROC: 4A023N7 Measurement of Cardiac Sampling and Pressure, Left Heart, Percutaneous Approach (ICD-10-PCS; 2019-07-03)
PROC: B2111ZZ Fluoroscopy of Multiple Coronary Arteries using Low Osmolar Contrast (ICD-10-PCS; 2019-07-03)
DX: I21.4 Non-ST elevation (NSTEMI) myocardial infarction (principal); J96.21 Acute and chronic respiratory failure with hypoxia; I25.10 Atherosclerotic heart disease of native coronary artery without angina pectoris; E87.6 Hypokalemia; J43.9 Emphysema, unspecified; R91.1 Solitary pulmonary nodule; I35.0 Nonrheumatic aortic (valve) stenosis; Z90.49 Acquired absence of other specified parts of digestive tract; Z87.891 Personal history of nicotine dependence
CPT/HCPCS: 36415; 71045; 80048; 80053; 80061; 82962; 83880; 84484; 85007; 85014; 85018; 85025; 85049; 85520; 85610; 85730; 93005; 93010; 93458; 94640; 94644; 94760; G0378; A9270-GY; C1751; C1769; C1887; C1894; J1644; J2250; J2920; J2930; J3010; J7040; Q9967

== ENCOUNTER 2019-08-24 14:34 | Emergency (ER) | payer MEDICARE ==
--- NOTE | 2019-08-24 15:22 | Emergency Department Report ---
ED CPR HPI - General Chief Complaint: Cardiac Arrest/CPR Stated Complaint: CARDIAC ARREST Time Seen by Provider: 08/24/19 15:00 Source: EMS (Verbal report received from emergency medical services. EMS documentation not available at time of chart dictation ), RN notes reviewed, old records reviewed Mode of arrival: Stretcher Limitations: Altered Mental Status, Physical Limitation, Other - History of Present Illness Initial Comments: This is an unfortunate 83-year-old female with a history of COPD, who presents to the ER with EMS with out of hospital cardiac arrest. Patient has been pulseless for at least 20 to 30 minutes prior to arrival. She did not have a shockable rhythm. She was intubated by emergency medical services. She received high-quality CPR, and standard ACLS interventions. In the emergency room, patient continues to receive high-quality CPR, and ACLS interventions. Unfortunately, her pupils are fixed and do not react to light, she continues to be in a rhythm that is not shockable, pulseless electrical activity, and we are not able to obtain return of spontaneous circulation. Resuscitation efforts were terminated secondary to prolonged downtime and medical futility. At the moment, family is not available for collateral information or additional history. MD Complaint: other (As per EMS, patient collapsed at home) -: minute(s) Place: home Bystander CPR Performed: Yes AED Applied by Bystander/Exhaust Worker: No Initial Findings in the Field: unresponsive, no pulse, PEA Treatments Prior to Arrival: intubation, chest compressions, epinephrine mgs # - Related Data Previous Rx's Medication Instructions Recorded Last Taken Type ALBUTEROL NEB's [Proventil 0.083% 2.5 mg IH Q3HRT PRN nebu 07/03/19 Unknown Rx NEBS] Acetaminophen [Acetaminophen TAB] 650 mg PO Q4H PRN tablet 07/03/19 Unknown Rx Aspirin 325 mg PO QDAY tablet 07/03/19 Unknown Rx AtorvaSTATin [Lipitor] 40 mg PO QHS tablet 07/03/19 Unknown Rx Budesonide [Pulmicort Respules] 0.5 mg IH Q12HRT nebu 07/03/19 Unknown Rx Docusate Sodium [Colace CAP] 100 mg PO BID capsule 07/03/19 Unknown Rx Ipratropium/Albuterol Sulfate 1 ampul IH Q6HRT ampul.neb 07/03/19 Unknown Rx [DUONEB *Not for PRN Use*] methylPREDNISolone Sod Suc 80 mg IV Q8HR vial 07/03/19 Unknown Rx [Solu-MEDROL] Allergies Allergy/AdvReac Type Severity Reaction Status Date / Time No Known Allergies Allergy Verified 05/10/19 13:57 ED Review of Systems ROS: Stated complaint: CARDIAC ARREST Other details as noted in HPI Comment: Unobtainable due to pts medical conditions ED Past Medical Hx - Past Medical History Hx Asthma: Yes Hx COPD: Yes Additional medical history: Emphusema - Surgical History Hx Appendectomy: Yes - Social History Smoking Status: Former Smoker - Medications Home Medications: Home Medications Medication Instructions Recorded Confirmed Last Taken Type ALBUTEROL NEB's [Proventil 0.083% 2.5 mg IH Q3HRT PRN nebu 07/03/19 Unknown Rx NEBS] Acetaminophen [Acetaminophen TAB] 650 mg PO Q4H PRN tablet 07/03/19 Unknown Rx Aspirin 325 mg PO QDAY tablet 07/03/19 Unknown Rx AtorvaSTATin [Lipitor] 40 mg PO QHS tablet 07/03/19 Unknown Rx Budesonide [Pulmicort Respules] 0.5 mg IH Q12HRT nebu 07/03/19 Unknown Rx Docusate Sodium [Colace CAP] 100 mg PO BID capsule 07/03/19 Unknown Rx Ipratropium/Albuterol Sulfate 1 ampul IH Q6HRT ampul.neb 07/03/19 Unknown Rx [DUONEB *Not for PRN Use*] methylPREDNISolone Sod Suc 80 mg IV Q8HR vial 07/03/19 Unknown Rx [Solu-MEDROL] ED Physical Exam - General Limitations: Other (Nonverbal, intubated, GCS 3T) General appearance: other (Patient is nonverbal) - Head Head exam: Present: atraumatic, normocephalic - Eye Eye exam: Present: other (Pupils fixed and) - ENT ENT exam: Present: normal exam, other (Patient is edentulous. Endotracheal tube is noted in the oropharynx) - Neck Neck exam: Present: normal inspection - Respiratory Respiratory exam: Present: other (No breath sounds unless [id number] ventilation is applied) - Cardiovascular Cardiovascular Exam: Present: other (The patient is pulseless) - GI/Abdominal GI/Abdominal exam: Present: soft - Extremities Exam Extremities exam: Present: pedal edema - Back Exam Back exam: Present: normal inspection - Neurological Exam Neurological exam: Present: other (GCS of 3 nonverbal) - Psychiatric Psychiatric exam: Present: other (Patient is nonverbal) - Skin Skin exam: Present: dry ED Medical Decision Making - Medical Decision Making Differential diagnosis, including but not limited to: Cardiac arrest, COPD exacerbation, pneumothorax, tension pneumothorax, acute coronary syndrome, pulmonary embolism Critical care attestation.: If time is entered above; I have spent that time in minutes in the direct care of this critically ill patient, excluding procedure time. ED Disposition Clinical Impression: Cardiac arrest Disposition: DC-20 Is pt being admited?: No Does the pt Need Aspirin: No Condition: Undetermined Referrals: ALPESH PERSON MD [Primary Care Provider] - 3-5 Days
[2019-08-24] MEDS ORDERED: SODIUM BICARB 8.4% 50 MEQ/50 ML SYRINGE IV ONE (21:05)
[2019-08-24] MEDS ORDERED: EPINEPHrine 1:10,000 1 MG/10 ML SYRINGE ONE (21:05)
== END 2019-08-24 17:54 ==
LOC: ED 14:34
DX: I46.9 Cardiac arrest, cause unspecified (principal); J44.9 Chronic obstructive pulmonary disease, unspecified; J43.9 Emphysema, unspecified; Z87.891 Personal history of nicotine dependence; Z79.899 Other long term (current) drug therapy
CPT/HCPCS: 92950; 99285; J0171